=== PATIENT | male | born 1960 | race Caucasian/White ===

== ENCOUNTER 2016-08-18 07:11 | Day surgery (SDC) | payer BC ==
[2016-08-16 11:13] VITALS: BMI 33.0
[~2016-08-18 07:11] MED LIST: LACTATED RINGERS 1,000 ML IV SCH
[2016-08-18 08:16] VITALS: RESP 18; TEMP 97.8
[2016-08-18] MEDS ORDERED: LIDOCAINE 1% 20 ML VIAL (10MG/ML) FOR IV START INTRADERMA ONE (08:30)
[2016-08-18] MEDS ORDERED: MIDAZOLAM 2 MG/2 ML VIAL ONE (08:36)
[2016-08-18] MEDS ORDERED: fentaNYL (PF) 50 MCG/ML 2 ML AMP ONE (08:36)
[2016-08-18] MEDS ORDERED: DEXAMETHASONE SOD PHOSPHATE 10 MG/ML 1 ML VIAL ONE (08:36)
[2016-08-18] MEDS ORDERED: IOHEXOL 180 MG/ML 1 ML ML ONE (08:36)
--- NOTE | 2016-08-18 08:46 | P.PCN ---
Date of Procedure: 08/18/16 Procedure(s) Performed: . PROCEDURE 1. Cervical epidural steroid injection under fluoroscopic guidance, C7-T1 2. Cervical epidurogram. PREOPERATIVE DIAGNOSIS: 1- Cervical Degenerative Disc Diseases 2- Cervical radiculopathy. POSTOPERATIVE DIAGNOSIS: : 1- Cervical Degenerative Disc Diseases , 2- Cervical radiculopathy. ANESTHESIA: Local anesthesia with 1% lidocaine 2 ml and IV sedation with Versed 2 mg and Fentanyl 100 mcg. EBL 0 PROCEDURE INDICATION: The patient with neck pain and radiculitis unresponsive to conservative treatment consents for procedure. PROCEDURE DESCRIPTION / TECHNIQUE: The patient was seen and identified in the preoperative area. Risks, benefits, complications, including but not limited to infections ,bleeding , allergic reactions to the medications ,and not complete pain releife, and alternatives were discussed with the patient, the patient agreed to proceed with the procedure and signed the consent. Patient was taken to the OR and time out was completed. The patient was placed in the prone position on the procedure table. A pillow was placed under the patients chest to increase the cervical interlaminar space. The cervical area was prepped and draped in the usual sterile fashion. Vital signs were closely monitored during the procedure. Conscious sedation was used during the procedure to decrease patients anxiety. Using anterior-posterior fluoroscopy, the C7-T1 interlaminar space was identified and the skin over this site was marked and then infiltrated with 1% lidocaine subcutaneously. Subsequently, a 20-gauge 3-1/2-inch Tuohy epidural needle was inserted and advanced toward the epidural space by means of the `` hanging-drop technique and guided by AP and lateral fluoroscopy. The correct needle position in the epidural space was verified with the injection of 2 mL of the water soluble contrast dye Isovue-180 and observing an excellent epidurogram with the epidural spread of the dye, after negative aspiration for blood and CSF and in the absence of paresthesias. Again after negative aspiration, mixture containing 20 mg Dexamethasone and 2 ml of preservative- free normal saline injected and a washout of epidurogram was seen. Needle was withdrawn intact, skin was cleansed, and bandages were applied. Complications= none. Disposition= patient was placed in supine position and transferred to the recovery room area in stable condition and there was no evidence of upper or lower extremity motor or sensory deficit after the procedure patient was discharged from recovery room after discharge criteria met and home discharge instructions was given by the staff and patient will follow with the pain clinic in 2-4 weeks
[2016-08-18] MEDS ORDERED: IV FLUID CONTINUATION 900 ML IV ONE (08:51)
--- NOTE | 2016-08-18 08:56 | FL ---
EXAMINATION TYPE: FL guided pain mgmt statistic DATE OF EXAM: 08/18/2016 8:52 AM HISTORY: Flouroscopy time 3 seconds of fluoroscopy provided. IMPRESSION: 1. Fluoroscopy time.
[2016-08-18 09:24] VITALS: BP 123/86; PULSE 69
== END 2016-08-18 09:32 | disposition home or self-care (01) ==
LOC: ORPAIN 07:11
PROVIDERS: ATTEND Specialist
DX: M50.10 Cervical disc disorder with radiculopathy, unspecified cervical region (principal)
CPT/HCPCS: 62321; J2250; J1100; Q9965; J3010

== ENCOUNTER 2016-09-16 12:50 | Day surgery (SDC) | payer BC ==
[2016-09-14 11:39] VITALS: BMI 32.3
[2016-09-16] MEDS ORDERED: LIDOCAINE 1% 20 ML VIAL (10MG/ML) FOR IV START INTRADERMA ONE (13:22)
[2016-09-16 13:26] VITALS: RESP 16; TEMP 97.5
[2016-09-16] MEDS ORDERED: IOHEXOL 180 MG/ML 1 ML ML ONE (13:30)
[2016-09-16] MEDS ORDERED: MIDAZOLAM 2 MG/2 ML VIAL ONE (13:30)
[2016-09-16] MEDS ORDERED: fentaNYL (PF) 50 MCG/ML 2 ML AMP ONE (13:30)
[2016-09-16] MEDS ORDERED: DEXAMETHASONE SOD PHOSPHATE 10 MG/ML 1 ML VIAL ONE (13:30)
--- NOTE | 2016-09-16 13:51 | P.PCN ---
Date of Procedure: 09/16/16 Surgeon: Shawn Alanis Pathology: none sent Condition: stable Disposition: PACU Description of Procedure: PREOPERATIVE DIAGNOSIS: Cervical radiculopathy. POSTOPERATIVE DIAGNOSIS: Cervical radiculopathy. PROCEDURE 1. Cervical epidural steroid injection under fluoroscopic guidance, C7-T1 level. 2. Cervical epidurogram. ANESTHESIA: Local anesthesia with 1% lidocaine and IV sedation with versed/ fentanyl. EBL: Minimal PROCEDURE INDICATION: The patient with neck pain and radiculitis unresponsive to conservative treatment consents for procedure; pt has gotten good relief from cervical epidural steroid injections in the past. No use of blood thinners. PROCEDURE DESCRIPTION / TECHNIQUE: The patient was seen and identified in the preoperative area. Risks, benefits, complications, and alternatives were discussed with the patient (including but not limited to incomplete pain relief, bleeding, infection, nerve damage, and allergies to medications), the patient agreed to proceed with the procedure and signed the consent after all questions were answered. Patient was taken to the OR and time out was completed to verify proper patient , position, laterality of pain, and allergies. Pt was placed in the prone position. A pillow was placed under the patients chest to increase the cervical interlaminar space. The cervical area was prepped and draped in the usual sterile fashion. Critical pause was taken. Vital signs were closely monitored during the procedure. Conscious sedation was used during the procedure to decrease patients anxiety. Using anterior-posterior fluoroscopy, the C7-T1 interlaminar space was identified and the skin over this site was marked and then infiltrated with 1% lidocaine subcutaneously in a paramedian fashion. Subsequently, a 20-gauge 3-1/2 -inch Tuohy epidural needle was inserted and advanced toward the epidural space by means of the loss of resistance technique and guided by AP and lateral fluoroscopy. After negative aspiration for blood or CSF and in the absence of paresthesias, the correct needle position in the epidural space was verified with the injection of 1 mL of the water soluble contrast dye Omnipaque-180 and observing an excellent epidurogram with the epidural spread of the dye, after negative aspiration for blood and CSF and in the absence of paresthesias. Again after negative aspiration, a 5 ml mixture containing 20 mg of Decadron and 3 ml of preservative free Normal Saline solution was injected and a washout of epidurogram was seen. Needle was withdrawn intact, skin was cleansed, and bandages were applied. COMPLICATIONS: None COMMENTS: DISPOSITION / PLANS: The patient was placed in a supine position and transferred to the recovery area in a stable condition for observation. There was no evidence of upper extremity motor or sensory deficit after the procedure. Patient was discharged from the recovery room after meeting discharge criteria. Home discharge instructions were given to the patient by the staff. The patient was reexamined prior to discharge. The patient will schedule next [facility] procedure in 4-6 weeks.
[2016-09-16] MEDS ORDERED: IV FLUID CONTINUATION 1,000 ML IV ONE (13:55)
[2016-09-16 14:10] VITALS: BP 122/75; PULSE 78
--- NOTE | 2016-09-16 14:22 | FL ---
FLUOROSCOPY 6 of fluoroscopy time were utilized during cervical epidural. 3 images document the procedure.
== END 2016-09-16 14:27 | disposition home or self-care (01) ==
LOC: ORPAIN 12:50
PROVIDERS: ATTEND Anesthesiology
DX: M50.10 Cervical disc disorder with radiculopathy, unspecified cervical region (principal)
CPT/HCPCS: 62321; 99152; J2250; J1100; Q9965; J3010

== ENCOUNTER 2016-10-19 06:10 | Day surgery (SDC) | payer BC ==
[2016-10-18 12:20] VITALS: BMI 31.8
[2016-10-19 06:43] VITALS: RESP 18; TEMP 97.7
[2016-10-19] MEDS ORDERED: LIDOCAINE 1% 20 ML VIAL (10MG/ML) FOR IV START INTRADERMA ONE (06:50)
[2016-10-19] MEDS ORDERED: LACTATED RINGERS 1,000 ML IV ONE (06:50)
[2016-10-19] MEDS ORDERED: MIDAZOLAM 2 MG/2 ML VIAL ONE (07:00)
[2016-10-19] MEDS ORDERED: IOHEXOL 180 MG/ML 1 ML ML ONE (07:00)
[2016-10-19] MEDS ORDERED: DEXAMETHASONE SOD PHOSPHATE 10 MG/ML 1 ML VIAL ONE (07:00)
[2016-10-19] MEDS ORDERED: fentaNYL (PF) 50 MCG/ML 2 ML AMP ONE (07:00)
[2016-10-19] MEDS ORDERED: LACTATED RINGERS 1,000 ML IV SCH (07:45)
--- NOTE | 2016-10-19 07:45 | P.PCN ---
Date of Procedure: 10/19/16 Surgeon: Shawn Alanis Pathology: none sent Condition: stable Disposition: PACU Description of Procedure: PREOPERATIVE DIAGNOSIS: Cervical radiculopathy. POSTOPERATIVE DIAGNOSIS: Cervical radiculopathy. PROCEDURE 1. Cervical epidural steroid injection under fluoroscopic guidance, C7-T1 level. 2. Cervical epidurogram. ANESTHESIA: Local anesthesia with 1% lidocaine and IV sedation with versed/ fentanyl. EBL: Minimal PROCEDURE INDICATION: The patient with neck pain and radiculitis unresponsive to conservative treatment consents for procedure; pt has gotten good relief from cervical epidural steroid injections in the past. No use of blood thinners. PROCEDURE DESCRIPTION / TECHNIQUE: The patient was seen and identified in the preoperative area. Risks, benefits, complications, and alternatives were discussed with the patient (including but not limited to incomplete pain relief, bleeding, infection, nerve damage, and allergies to medications), the patient agreed to proceed with the procedure and signed the consent after all questions were answered. Patient was taken to the OR and time out was completed to verify proper patient , position, laterality of pain, and allergies. Pt was placed in the prone position. A pillow was placed under the patients chest to increase the cervical interlaminar space. The cervical area was prepped and draped in the usual sterile fashion. Critical pause was taken. Vital signs were closely monitored during the procedure. Conscious sedation was used during the procedure to decrease patients anxiety. Using anterior-posterior fluoroscopy, the C7-T1 interlaminar space was identified and the skin over this site was marked and then infiltrated with 1% lidocaine subcutaneously in a paramedian fashion. Subsequently, a 20-gauge 3-1/2 -inch Tuohy epidural needle was inserted and advanced toward the epidural space by means of the loss of resistance technique and guided by AP and lateral fluoroscopy. After negative aspiration for blood or CSF and in the absence of paresthesias, the correct needle position in the epidural space was verified with the injection of 1 mL of the water soluble contrast dye Omnipaque-180 and observing an excellent epidurogram with the epidural spread of the dye, after negative aspiration for blood and CSF and in the absence of paresthesias. Again after negative aspiration, a 5 ml mixture containing 20 mg of Decadron and 3 ml of preservative free Normal Saline solution was injected and a washout of epidurogram was seen. Needle was withdrawn intact, skin was cleansed, and bandages were applied. COMPLICATIONS: None COMMENTS: DISPOSITION / PLANS: The patient was placed in a supine position and transferred to the recovery area in a stable condition for observation. There was no evidence of upper extremity motor or sensory deficit after the procedure. Patient was discharged from the recovery room after meeting discharge criteria. Home discharge instructions were given to the patient by the staff. The patient was reexamined prior to discharge and there were no issues. The patient will schedule clinic followup in 4-6 weeks.
[2016-10-19 08:04] VITALS: BP 113/73; PULSE 70
[2016-10-19] MEDS ORDERED: IV FLUID CONTINUATION 1,000 ML IV ONE (08:11)
--- NOTE | 2016-10-19 08:33 | FL ---
Fluoroscopy HISTORY: Pain 11 seconds fluoroscopy time supplied to the referring clinician. 3 intraoperative C-arm images docum ent the procedure. See dictated report from anesthesia.
== END 2016-10-19 08:21 | disposition home or self-care (01) ==
LOC: ORPAIN 06:10
PROVIDERS: ATTEND Anesthesiology
DX: G89.29 Other chronic pain (principal); M54.12 Radiculopathy, cervical region; E78.5 Hyperlipidemia, unspecified; I10 Essential (primary) hypertension; E66.9 Obesity, unspecified; Z79.891 Long term (current) use of opiate analgesic; Z79.899 Other long term (current) drug therapy
CPT/HCPCS: 62321; 99152; J2250; J1100; Q9965; J3010

== ENCOUNTER → 2016-12-07 | Outpatient (CLI) | payer BC ==
[2016-12-07 12:36] VITALS: BP 139/73; PULSE 71; RESP 18; TEMP 98.4
--- NOTE | 2016-12-07 13:20 | P.PN ---
Subjective This is follow visit for this 56 years old male , with a chronic history of severe neck pain diagnosed with cervical radiculopathy and cervical degenerative disc disease, with done cervical epidural steroid injections x 3 , he reports , his pain improved significantly after the injection, denies any motor or sensory deficit, and he is very satisfied with the result of the treatment Objective - Vital Signs Vital signs: Vital Signs Temp 98.4 F 12/07/16 12:33 Pulse 71 12/07/16 12:33 Resp 18 12/07/16 12:33 BP 139/73 12/07/16 12:33 Pulse Ox 96 12/07/16 12:33 Intake & Output 12/06/16 12/07/16 12/07/16 18:59 06:59 18:59 Weight 90.718 kg - Exam Physical Examinations : 1-Constitutiona : Cooperative , not in acute distress . 2-HEENT : nech ; supple , no Lymphadenopathy , normal thyroid size . eyes : no ptosis , no icterus, no photophobia . ENT : normal of hearing , normal oropharynx , no Thrush . 3- Respiratory : Chest clear to auscultations Bilaterally , no wheezing , no Rhonchi . 4- Cardiovascular : regular rate and rhythem , S1 , S2 , no S3 , no S4. 5- Gastrointestinal : abdomen soft no tenderness , bowel sounds positive all four quadrents , no organomegally . 6- Genitourinary : Defferred . 7- neurologic : Cranial nerve II to XII intact , no focal neurological deffecit . 8-psychatric : alert , oriented X 3 , appropriate affect , intact judgment and insight . 9-Lymphatic : no Lymphadenopathy . 10- musculoskeltal : cervical spine = motor stregnth in the deltoid and biceps, Assessment and Plan Plan: Assessment and plan= Cervical radiculopathy ,and cervical degenerative disc disease,the pain improved after cervical epidural steroid injections, he will follow up when necessary Time with Patient: Less than 30
== END ==
LOC: PNWHC3 12:19
PROVIDERS: ATTEND Specialist
DX: M50.10 Cervical disc disorder with radiculopathy, unspecified cervical region (principal); Z79.891 Long term (current) use of opiate analgesic
CPT/HCPCS: 99211

== ENCOUNTER → 2017-01-12 | Outpatient (CLI) | payer BC ==
--- NOTE | 2017-01-12 09:18 | MR ---
EXAMINATION TYPE: MR lumbar spine wo con DATE OF EXAM: 01/12/2017 COMPARISON: CT abdomen pelvis March 10, 2014 HISTORY: Lumbago with right-sided sciatica per order. Back pain into right thigh since September 2015 per patient. TECHNIQUE: Multiplanar, multisequence imaging of the lumbar spine is performed without IV contrast. FINDINGS: Sagittal images of the lumbar spine show vertebral body heights to appear satisfactory. Spi ne is straightened on sagittal images. Multilevel disc desiccation is present. There is moderate to a dvanced disc space narrowing L3-L4 through the L5-S1 levels with posterior disc herniations present o n sagittal images at these levels. Increased signal posteriorly consistent with annular tear L3-L4 an d L5-S1 levels is noted. The conus medullaris is normal in position and signal ending at T12/L1 disc space level. The bone marrow signal intensity shows some heterogeneity with increased T1 and T2 sign al consistent with Modic type II degenerative degenerative change and moderate spurring at L5-S1 leve l present. Additional mild multilevel anterior spurring is seen. Axial images beginning at the L1-L2 level which shows broad-based posterior disc protrusion mildly ef facing anterior thecal sac with mild facet degenerative changes and ligamentum flavum hypertrophy. Bi lateral neural foramina remain patent. Axial images at L2-L3 level show mild facet degenerative changes bilaterally otherwise are unremarkab le. Axial images at L3-L4 level show broad disc bulge with left paracentral disc protrusion component on axial image 18 effacing anterior thecal sac. There is mild facet degenerative changes bilaterally. Th ere is mild bilateral anterior inferior neural foraminal narrowing noted. Axial images at L4-L5 level show mild to moderate facet degenerative changes bilaterally. There is br oad-based right paracentral disc protrusion effacing anterior thecal sac. There is mild right greater than left anterior inferior neural foraminal narrowing noted at this level. Axial images at L5-S1 level show mild/moderate facet degenerative changes bilaterally. There is centr al disc protrusion seen but spinal canal is preserved. There is mild to moderate bilateral anterior i nferior neural foraminal narrowing at this level identified. No suspicious retroperitoneal findings are seen. Paraspinal muscle bulk is maintained. IMPRESSION: Straightening of lumbar spine with multilevel degenerative changes seen most prominent at mid to lower lumbar levels. Further details are noted as discussed above.
== END | disposition home or self-care (01) ==
LOC: RADMRIMAIN 08:06
PROVIDERS: ATTEND Family Medicine
DX: M47.817 Spondylosis without myelopathy or radiculopathy, lumbosacral region (principal); M53.86 Other specified dorsopathies, lumbar region
CPT/HCPCS: 72148

== ENCOUNTER → 2017-02-17 | Outpatient (CLI) | payer BC ==
--- NOTE | 2017-02-18 13:55 | PN ---
PROGRESS NOTE 56-year-old gentleman had been [facility] of obstructive sleep apnea/hypopnea syndrome. The patient successfully continued to use his CPAP equipment. I checked CPAP unit. Usage is 29 out of 30 nights more than 4 hours. Sometimes patient experiencing dryness in his mouth while using his CPAP machine. He increased his weight from 202 pounds during the last visit up to 210 pounds at the present time. No snoring with the machine. MEDICATIONS: Metoprolol, simvastatin, fenofibrate, [place]. [place] Sleepiness Scale today is 9. PHYSICAL EXAM: Patient in no distress. BP 126/84, HR 72, RR 16, height 5 feet 6 inches, weight 210, BMI 33.8, temp is 98.3. Oxygen saturation on room air 98%. Oropharynx moderately low position of soft palate. Abdomen obese. . Neck Supple, no JVD. Thyroid is not palpable. LUNGS Clear to percussion and to auscultation. Good air exchange. No wheezing or rhonchi. HEART S1, S2 regular. No murmurs, gallops, or rubs. EXTREMITIES No clubbing or cyanosis. WANT AD RECEIVER Awake, alert, and oriented X3. Cranial nerves 2 to 7 intact. There is no fasciculation or atrophy. noted. No focal deficits observed. IMPRESSION: 1. Obstructive sleep apnea-hypopnea syndrome controlled with CPAP at 10 cm of water. Patient demonstrated practically 100% compliance with treatment, benefitting with treatment. 2. Obesity, body mass index 33.8. Patient increased his weight 8 pounds since previous visit. 3. Hyperlipidemia. 4. Status post right hip replacement. 5. Hypertension. 6. Status post UPPP and tonsillectomy. PLAN: 1. Continue treatment with CPAP every night for the whole night. 2. A prescription for all necessary CPAP supplies. 3. The patient will increase temperature in his humidifier to prevent dryness. 4. No driving if feeling sleepiness. 5. Followup visit in 6 months. At that time we will consider possibility to replace patient's CPAP unit. 6. 7. Thank you very much for allowing me to participate in the management of your patient. Sincerely, Jourdan Baker MD, PhD, FAASM Diplomat of [employer] Test Specialist of [facility] Sharon MMODL / IJN: [id number] /
== END | disposition home or self-care (01) ==
LOC: SLEEP 16:21
PROVIDERS: ATTEND Internal Medicine
DX: G47.33 Obstructive sleep apnea (adult) (pediatric) (principal); E66.9 Obesity, unspecified; Z68.33 Body mass index [BMI] 33.0-33.9, adult; E78.5 Hyperlipidemia, unspecified; I10 Essential (primary) hypertension; Z96.641 Presence of right artificial hip joint; Z90.89 Acquired absence of other organs; Z79.899 Other long term (current) drug therapy

== ENCOUNTER 2017-05-31 09:20 | Day surgery (SDC) | payer BC ==
[2017-05-26 15:49] VITALS: BMI 32.3
[2017-05-31] MEDS ORDERED: LACTATED RINGERS 1,000 ML IV ONE ×2 (09:44→10:45)
[2017-05-31] MEDS ORDERED: LIDOCAINE 1% 20 ML VIAL (10MG/ML) FOR IV START INTRADERMA ONE (09:44)
[2017-05-31 09:46] VITALS: RESP 16; TEMP 97.1
[2017-05-31] MEDS ORDERED: IV FLUID CONTINUATION 1,000 ML IV ONE (10:08)
[2017-05-31 10:31] VITALS: BP 133/80; PULSE 76
--- NOTE | 2017-05-31 10:38 | FL ---
Fluoroscopy HISTORY: Pain 6 seconds fluoroscopy time supplied to the referring clinician. 2 intraoperative C-arm images docume nt the procedure. See dictated report from anesthesia.
--- NOTE | 2017-05-31 10:53 | P.PCN ---
Date of Procedure: 05/31/17 Surgeon: Shawn Alanis Pathology: none sent Condition: stable Disposition: PACU Description of Procedure: PREOPERATIVE DIAGNOSIS: Cervical radiculopathy. POSTOPERATIVE DIAGNOSIS: Cervical radiculopathy. PROCEDURE 1. Cervical epidural steroid injection under fluoroscopic guidance, C7-T1 level. 2. Cervical epidurogram. ANESTHESIA: Local anesthesia with 1% lidocaine and IV sedation with versed/ fentanyl. EBL: Minimal PROCEDURE INDICATION: The patient with neck pain and radiculitis unresponsive to conservative treatment consents for procedure; pt has gotten good relief from cervical epidural steroid injections in the past. No use of blood thinners. PROCEDURE DESCRIPTION / TECHNIQUE: The patient was seen and identified in the preoperative area. Risks, benefits, complications, and alternatives were discussed with the patient (including but not limited to incomplete pain relief, bleeding, infection, nerve damage, and allergies to medications), the patient agreed to proceed with the procedure and signed the consent after all questions were answered. Patient was taken to the OR and time out was completed to verify proper patient , position, laterality of pain, and allergies. Pt was placed in the prone position. A pillow was placed under the patients chest to increase the cervical interlaminar space. The cervical area was prepped and draped in the usual sterile fashion. Critical pause was taken. Vital signs were closely monitored during the procedure. Conscious sedation was used during the procedure to decrease patients anxiety. Using anterior-posterior fluoroscopy, the C7-T1 interlaminar space was identified and the skin over this site was marked and then infiltrated with 1% lidocaine subcutaneously in a paramedian fashion. Subsequently, a 20-gauge 3-1/2 -inch Tuohy epidural needle was inserted and advanced toward the epidural space by means of the loss of resistance technique and guided by AP and lateral fluoroscopy. After negative aspiration for blood or CSF and in the absence of paresthesias, the correct needle position in the epidural space was verified with the injection of 1 mL of the water soluble contrast dye Omnipaque-180 and observing an excellent epidurogram with the epidural spread of the dye, after negative aspiration for blood and CSF and in the absence of paresthesias. Again after negative aspiration, a 5 ml mixture containing 20 mg of Decadron and 3 ml of preservative free Normal Saline solution was injected and a washout of epidurogram was seen. Needle was withdrawn intact, skin was cleansed, and bandages were applied. COMPLICATIONS: None COMMENTS: DISPOSITION / PLANS: The patient was placed in a supine position and transferred to the recovery area in a stable condition for observation. There was no evidence of upper extremity motor or sensory deficit after the procedure. Patient was discharged from the recovery room after meeting discharge criteria. Home discharge instructions were given to the patient by the staff. The patient was reexamined prior to discharge and there were no issues. The patient will schedule clinic follow-up in 6-8 weeks as he is scheduled to have hip surgery.
== END 2017-05-31 10:42 | disposition home or self-care (01) ==
LOC: ORPAIN 09:20
PROVIDERS: ATTEND Anesthesiology
DX: G89.29 Other chronic pain (principal); M54.12 Radiculopathy, cervical region; I10 Essential (primary) hypertension; E78.5 Hyperlipidemia, unspecified
CPT/HCPCS: 62321; J2250; J1100; Q9965; J3010; 99152

== ENCOUNTER → 2017-07-26 | Outpatient (CLI) | payer BC ==
[2017-07-26 12:09] VITALS: BP 131/78; PULSE 79; RESP 16
--- NOTE | 2017-07-26 12:25 | P.PN ---
Progress Note - Text Progress Note Date: 07/26/17 This is a 57-year-old male with history of cervical fusion and chronic neck pain. The patient usually gets good results from cervical epidural steroid injections. He usually gets a series of 3 of these injections that would last him for 6 months as he states. His pain goes down to both shoulders and he denies any numbness or tingling in the arms. By physical exam he is alert oriented 3 in no apparent distress. He has decreased range of motion towards the right rotation however the rest of the range of motion of the cervical spine is normal. He has tenderness in the cervical paravertebral area bilaterally and also in the trapezius muscles bilaterally.. Neuro exam of the upper extremities showed normal and symmetrical biceps reflex absent triceps reflex bilaterally and symmetrically and normal and symmetrical brachial radialis reflex. Muscle strength is normal and symmetrical in both arms. I will schedule the patient to have cervical epidural steroid injection under fluoroscopic guidance and if this injection does not help control his pain well as it used to then we'll plan on doing cervical spine MRI with/without contrast. The patient is borderline diabetic and he denies taking any anticoagulants.
== END | disposition home or self-care (01) ==
LOC: PNWHC3 11:34
PROVIDERS: ATTEND Anesthesiology
DX: G89.29 Other chronic pain (principal); M54.2 Cervicalgia; M43.22 Fusion of spine, cervical region; E11.9 Type 2 diabetes mellitus without complications
CPT/HCPCS: 99211

== ENCOUNTER 2017-08-04 06:10 | Day surgery (SDC) | payer BC ==
[2017-08-04] MEDS ORDERED: LACTATED RINGERS 1,000 ML IV SCH (06:24)
[2017-08-04 06:32] VITALS: RESP 16; TEMP 97.7
[2017-08-04 06:40] LABS: Glucose,Whole Blood 106 mg/dL (75-99)
[2017-08-04] MEDS ORDERED: IV FLUID CONTINUATION 1,000 ML IV ONE (07:17)
--- NOTE | 2017-08-04 07:18 | P.PCN ---
Date of Procedure: 08/04/17 Procedure(s) Performed: . PROCEDURE 1. Cervical epidural steroid injection under fluoroscopic guidance, C7-T1 2. Cervical epidurogram. PREOPERATIVE DIAGNOSIS: 1- failed back surgery syndrome ,cervical area POSTOPERATIVE DIAGNOSIS: : 1- same as preoperative diagnoses ANESTHESIA: Local anesthesia with 1% lidocaine and IV sedation with Versed 2 mg and Fentanyl 100 mcg. EBL 0 PROCEDURE INDICATION: The patient with neck pain and radiculitis unresponsive to conservative treatment consents for procedure. PROCEDURE DESCRIPTION / TECHNIQUE: The patient was seen and identified in the preoperative area. Risks, benefits, complications, including but not limited to infections ,bleeding , allergic reactions to the medications ,and not complete pain releife, and alternatives were discussed with the patient, the patient agreed to proceed with the procedure and signed the consent. Patient was taken to the OR and time out was completed. The patient was placed in the prone position on the procedure table. A pillow was placed under the patients chest to increase the cervical interlaminar space. The cervical area was prepped and draped in the usual sterile fashion. Vital signs were closely monitored during the procedure. Conscious sedation was used during the procedure to decrease patients anxiety. Using anterior-posterior fluoroscopy, the C7-T1 interlaminar space was identified and the skin over this site was marked and then infiltrated with 1% lidocaine subcutaneously. Subsequently, a 20-gauge 3-1/2-inch Tuohy epidural needle was inserted and advanced toward the epidural space by means of the `` hanging-drop technique and guided by AP and lateral fluoroscopy. The correct needle position in the epidural space was verified with the injection of 2 mL of the water soluble contrast dye Isovue-180 and observing an excellent epidurogram with the epidural spread of the dye, after negative aspiration for blood and CSF and in the absence of paresthesias. Again after negative aspiration, mixture containing 20 mg Dexamethasone and 2 ml of preservative- free normal saline injected and a washout of epidurogram was seen. Needle was withdrawn intact, skin was cleansed, and bandages were applied. Complications= none. Disposition= patient was placed in supine position and transferred to the recovery room area in stable condition and there was no evidence of upper or lower extremity motor or sensory deficit after the procedure patient was discharged from recovery room after discharge criteria met and home discharge instructions was given by the staff and patient will follow with the pain clinic in 2-4 weeks
[2017-08-04 07:52] VITALS: BP 128/86; PULSE 76
[2017-08-04 07:53] LABS: Glucose,Whole Blood 105 mg/dL (75-99)
--- NOTE | 2017-08-04 08:59 | FL ---
EXAMINATION TYPE: FL guided pain mgmt statistic DATE OF EXAM: 08/04/2017 HISTORY: Flouroscopy time 2 seconds of fluoroscopy provided. IMPRESSION: 1. Fluoroscopy time.
== END 2017-08-04 08:00 | disposition home or self-care (01) ==
LOC: ORPAIN 06:10
PROVIDERS: ATTEND Specialist
DX: G89.29 Other chronic pain (principal); M54.12 Radiculopathy, cervical region; M96.1 Postlaminectomy syndrome, not elsewhere classified; E11.9 Type 2 diabetes mellitus without complications; Z98.1 Arthrodesis status
CPT/HCPCS: 62321; J2250; J1100; Q9965; J3010

== ENCOUNTER 2017-08-23 06:26 | Day surgery (SDC) | payer BC ==
[2017-08-19 10:55] VITALS: BMI 32.3
[2017-08-23] MEDS ORDERED: LIDOCAINE 1% 20 ML VIAL (10MG/ML) FOR IV START INTRADERMA ONE (06:38)
[2017-08-23 06:56] VITALS: TEMP 97.5
[2017-08-23] MEDS ORDERED: LACTATED RINGERS 1,000 ML IV ONE (06:57)
[2017-08-23 06:58] LABS: Glucose,Whole Blood 116 mg/dL (75-99)
[2017-08-23] MEDS ORDERED: LACTATED RINGERS 1,000 ML IV SCH (07:15)
--- NOTE | 2017-08-23 08:01 | P.PCN ---
Date of Procedure: 08/23/17 Surgeon: Shawn Alanis Pathology: none sent Condition: stable Disposition: PACU Description of Procedure: PREOPERATIVE DIAGNOSIS: Cervical radiculopathy. POSTOPERATIVE DIAGNOSIS: Cervical radiculopathy. PROCEDURE 1. Cervical epidural steroid injection under fluoroscopic guidance, C7-T1 level. 2. Cervical epidurogram. ANESTHESIA: Local anesthesia with 1% lidocaine and IV sedation with versed/ fentanyl. EBL: Minimal PROCEDURE INDICATION: The patient with neck pain and radiculitis unresponsive to conservative treatment consents for procedure; pt has gotten good relief from cervical epidural steroid injections in the past. No use of blood thinners. PROCEDURE DESCRIPTION / TECHNIQUE: The patient was seen and identified in the preoperative area. Risks, benefits, complications, and alternatives were discussed with the patient (including but not limited to incomplete pain relief, bleeding, infection, nerve damage, and allergies to medications), the patient agreed to proceed with the procedure and signed the consent after all questions were answered. Patient was taken to the OR and time out was completed to verify proper patient , position, laterality of pain, and allergies. Pt was placed in the prone position. A pillow was placed under the patients chest to increase the cervical interlaminar space. The cervical area was prepped and draped in the usual sterile fashion. Critical pause was taken. Vital signs were closely monitored during the procedure. Conscious sedation was used during the procedure to decrease patients anxiety. Using anterior-posterior fluoroscopy, the C7-T1 interlaminar space was identified and the skin over this site was marked and then infiltrated with 1% lidocaine subcutaneously in a paramedian fashion. Subsequently, a 20-gauge 3-1/2 -inch Tuohy epidural needle was inserted and advanced toward the epidural space by means of the loss of resistance technique and guided by AP and lateral fluoroscopy. After negative aspiration for blood or CSF and in the absence of paresthesias, the correct needle position in the epidural space was verified with the injection of 1 mL of the water soluble contrast dye Omnipaque-180 and observing an excellent epidurogram with the epidural spread of the dye, after negative aspiration for blood and CSF and in the absence of paresthesias. Again after negative aspiration, a 4 ml mixture containing 20 mg of Decadron and 2 ml of preservative free Normal Saline solution was injected and a washout of epidurogram was seen. Needle was withdrawn intact, skin was cleansed, and bandages were applied. COMPLICATIONS: None COMMENTS: DISPOSITION / PLANS: The patient was placed in a supine position and transferred to the recovery area in a stable condition for observation. There was no evidence of upper extremity motor or sensory deficit after the procedure. Patient was discharged from the recovery room after meeting discharge criteria. Home discharge instructions were given to the patient by the staff. The patient was reexamined prior to discharge and there were no issues. The patient will schedule clinic follow-up in 4-6 weeks.
[2017-08-23] MEDS ORDERED: IV FLUID CONTINUATION 650 ML IV ONE (08:09)
[2017-08-23 08:12] VITALS: RESP 18
[2017-08-23 08:29] VITALS: BP 127/88; PULSE 72
--- NOTE | 2017-08-23 12:12 | FL ---
EXAMINATION TYPE: FL guided pain mgmt statistic DATE OF EXAM: 08/23/2017 HISTORY: Flouroscopy time 12 seconds of fluoroscopy provided. IMPRESSION: 1. Fluoroscopy time.
== END 2017-08-23 08:51 | disposition home or self-care (01) ==
LOC: ORPAIN 06:26
PROVIDERS: ATTEND Anesthesiology
DX: G89.29 Other chronic pain (principal); M54.12 Radiculopathy, cervical region; R73.03 Prediabetes
CPT/HCPCS: 62321; J2250; J1100; Q9965; J3010; 99152

== ENCOUNTER → 2017-10-04 | Outpatient (CLI) | payer BC ==
[2017-10-04 09:48] LABS: Basophils % (A) 1 %; Eosinophils # (A) 0.2 k/uL (0-0.7); Eosinophils % (A) 3 %; HCT 43.8 % (39.0-53.0); HGB 14.2 gm/dL (13.0-17.5); Lymphocytes # (A) 1.7 k/uL (1.0-4.8); Lymphocytes % (A) 26 %; MCH 28.9 pg (25.0-35.0); MCHC 32.5 g/dL (31.0-37.0); Mean Platelet Volume 8.6; Monocytes # (A) 0.3 k/uL (0-1.0); Monocytes % (A) 5 %; Neutrophils # (A) 4.3 k/uL (1.3-7.7); Neutrophils % (A) 65 %; Platelet Count 250 k/uL (150-450); RBC 4.92 m/uL (4.30-5.90); RDW 13.3 % (11.5-15.5); WBC 6.6 k/uL (3.8-10.6)
[2017-10-04 10:06] LABS: ALT 35 U/L (21-72); AST 21 U/L (17-59); Albumin 4.1 g/dL (3.5-5.0); Alkaline Phosphatase 55 U/L (38-126); Anion Gap 14 mmol/L; Blood Urea Nitrogen 15 mg/dL (9-20); Calcium 9.5 mg/dL (8.4-10.2); Carbon Dioxide 27 mmol/L (22-30); Chloride 106 mmol/L (98-107); Cholesterol 162 mg/dL (<200); Glucose 121 mg/dL (74-99); HDL Cholesterol 34 mg/dL (40-60); LDL Cholesterol,Calculated 97 mg/dL (0-99); Potassium 4.5 mmol/L (3.5-5.1); Sodium 147 mmol/L (137-145); Total Bilirubin 0.3 mg/dL (0.2-1.3); Total Protein 6.6 g/dL (6.3-8.2); Triglycerides 154 mg/dL (<150)
[2017-10-04 20:35] LABS: Hemoglobin A1C 6.3 % (4.0-6.0)
== END | disposition home or self-care (01) ==
LOC: LABWHC1 09:29
PROVIDERS: ATTEND Family Medicine
DX: E11.65 Type 2 diabetes mellitus with hyperglycemia (principal)
CPT/HCPCS: 36415; 80053; 80061; 82043; 82570; 83036; 84443; 85025

== ENCOUNTER → 2018-01-19 | Outpatient (CLI) | payer BC ==
--- NOTE | 2018-01-19 10:52 | PN ---
PROGRESS NOTE DATE OF SERVICE: 01/19/2018 A 57-year-old gentleman who has been followed in [facility] Center for treatment of obstructive sleep apnea-hypopnea syndrome. Patient continued to use his CPAP unit every night. No snoring with the machine. [place] Sleepiness Scale today is 8. I checked CPAP unit. CPAP pressure is 10 cm of water. Usage is 27/30 nights more than 4 hours for the last months. Average usage is 6.3 hours. No snoring with the machine. MEDICATIONS: Simvastatin, fenofibrate, metoprolol, metformin. PHYSICAL EXAM: Patient in no distress. BP 126/76, HR 79, RR 16, height 66, weight 209.2, BMI 33.7. Weight is about the same as one year ago. Temperature 97.8, oxygen saturation at room air 96%. OROPHARYNX: Moderately low position of soft palate. ABDOMEN: Slightly obese. Neck Supple, no JVD. Thyroid is not palpable. LUNGS Clear to percussion and to auscultation. Good air exchange. No wheezing or rhonchi. HEART S1, S2 regular. No murmurs, gallops, or rubs. EXTREMITIES No clubbing or cyanosis. 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 Cranial nerves 2 to 7 intact. There is no fasciculation or atrophy. noted. No focal deficits observed. IMPRESSION: 1. Obstructive sleep apnea-hypopnea syndrome. Patient demonstrated great compliance with treatment, benefitting from treatment. 2. Mild obesity. body mass index 33.7. 3. Hyperlipidemia. 4. Status post right hip replacement. 5. Hypertension. 6. Status post UPPP and tonsillectomy. 7. Borderline level of blood sugar. PLAN: 1. Patient will continue to use CPAP equipment every. 2. We will replace CPAP unit, this unit more than 5 years old. 3. Losing weight. 4. Sleep hygiene with regular time in bed for at least 8 hours. 5. No driving if feeling any sleepiness. Thank you very much for allowing me to participate in the management of your patient. Sincerely, Jourdan Baker MD, PhD, FAASM Diplomat of [employer] Motion Picture Actor of [facility] [place] MMODL / IJN: [id number] /
== END | disposition home or self-care (01) ==
LOC: SLEEP 09:40
PROVIDERS: ATTEND Internal Medicine
DX: G47.33 Obstructive sleep apnea (adult) (pediatric) (principal); E78.5 Hyperlipidemia, unspecified; I10 Essential (primary) hypertension; E66.9 Obesity, unspecified; Z68.33 Body mass index [BMI] 33.0-33.9, adult; Z96.641 Presence of right artificial hip joint; Z90.89 Acquired absence of other organs; Z99.89 Dependence on other enabling machines and devices; Z79.899 Other long term (current) drug therapy; Z79.84 Long term (current) use of oral hypoglycemic drugs

== ENCOUNTER 2018-01-25 06:46 | Day surgery (SDC) | payer BC ==
[2018-01-20 13:06] VITALS: BMI 32.3
[~2018-01-25 06:46] MED LIST changes: +LIDOCAINE 1% 20 ML VIAL (10MG/ML) FOR IV START INTRADERMA PRN; +MIDAZOLAM 2 MG/2 ML VIAL IV PRN
[2018-01-25 07:32] VITALS: TEMP 97.3
[2018-01-25 07:36] LABS: Glucose,Whole Blood 113 mg/dL (75-99)
[2018-01-25] MEDS ORDERED: PROPOFOL 10 MG/ML 20 ML VIAL IV ONE (07:36)
[2018-01-25] MEDS ORDERED: LIDOCAINE 1% INJ 10MG/ML (20 ML MDV) ONE (07:36)
--- NOTE | 2018-01-25 08:08 | P.PCN ---
Date of Procedure: 01/25/18 Procedure(s) Performed: BRIEF HISTORY: Patient is a 57-year-old pleasant white male, scheduled for an elective colonoscopy as a part of variation of prior history of colon polyps. He also has acute recurrent sigmoid diverticulitis last episode was 2 months ago. Today with antibiotics and doing well. PROCEDURE PERFORMED: Colonoscopy with snare polypectomy. PREOPERATIVE DIAGNOSIS: History of colon polyps/acute recurrent sigmoid diverticular colitis. IV sedation per Anesthesia. PROCEDURE: After informed consent was obtained, the patient, was brought into the endoscopy unit. IV sedation was administered by Anesthesia under continuous monitoring. Digital rectal examination was normal. Initially the Olympus CF- 160 flexible video colonoscope was then inserted in the rectum, gradually advanced into the cecum without any difficulty. Careful examination was performed as the scope was gradually being withdrawn. Ileocecal valve and the appendiceal orifice were visualized and appeared normal. Prep was excellent. Mucosa of the cecum, ascending colon, appeared normal. In the transverse colon there was a 1 cm polyp that was removed by snare polypectomy. The descending colon there were 2 polyps measuring 5 mm and 7 mm both of which were sessile which were removed by snare polypectomy. The rest of the transverse colon, descending colon appeared normal. There was scattered diverticulosis noted in the sigmoid colon and there was relative narrowing of the lumen exiting from 30- 40 cm from the anal verge but no obvious diverticulitis seen. The rest of the sigmoid colon, and rectum appeared normal. Retroflexion was performed in the rectum and no lesions were seen. The patient tolerated the procedure well. IMPRESSION: Sigmoid diverticulosis with mild sigmoid narrowing but no evidence of acute diverticulitis 1 cm transverse colon polyp status post polypectomy 5 mm and 7 mm sessile descending colon polyp status post polypectomy RECOMMENDATIONS: Findings of this examination were discussed with the patient as well as his family. He was advised to follow with the biopsy results. If the biopsy shows a tubular adenoma, he can have a repeat colonoscopy in 3 years.
[2018-01-25 08:20] VITALS: BP 123/82; PULSE 67; RESP 16
== END 2018-01-25 09:02 | disposition home or self-care (01) ==
LOC: ORWHC2ENDO 06:46
PROVIDERS: ATTEND Internal Medicine Gastroenterology
DX: D12.3 Benign neoplasm of transverse colon (principal); D12.4 Benign neoplasm of descending colon; Z86.010 Personal history of colon polyps; K57.30 Diverticulosis of large intestine without perforation or abscess without bleeding; I10 Essential (primary) hypertension; E11.9 Type 2 diabetes mellitus without complications; Z79.84 Long term (current) use of oral hypoglycemic drugs; Z79.899 Other long term (current) drug therapy
CPT/HCPCS: 88305; 45385; J2001; J2704

== ENCOUNTER → 2018-04-20 | Outpatient (CLI) | payer BC ==
[2018-04-20 11:04] LABS: Albumin 4.5 g/dL (3.80-4.90); Albumin/Globulin Ratio 2.37 (1.20-2.10); Anion Gap 4.8 mmol/L (4.00-12.00); Calcium 9.6 mg/dL (8.7-10.3); Carbon Dioxide 30.2 mmol/L (21.6-31.8); Globulin 1.9 g/dL (2.1-3.7); Potassium 4.5 mmol/L (3.5-5.5); Total Bilirubin 0.4 mg/dL (0.2-1.2); Total Protein 6.4 g/dL (6.2-8.2)
[2018-04-20 12:56] LABS: Hemoglobin A1C 7.1 % (4.0-6.0)
== END | disposition home or self-care (01) ==
LOC: LABWHC1 07:41
PROVIDERS: ATTEND Family Medicine
DX: E11.9 Type 2 diabetes mellitus without complications (principal)
CPT/HCPCS: 36415; 80053; 80061; 83036

== ENCOUNTER → 2018-06-15 | Outpatient (CLI) | payer BC ==
--- NOTE | 2018-06-15 12:38 | SFUN ---
SLEEP CENTER FOLLOW UP NOTE DATE OF SERVICE: 06/15/2018 A 58-year-old gentleman who has been followed in the Sleep Center for treatment of obstructive sleep apnea-hypopnea syndrome. Recently patient received new CPAP unit. He is able to use CPAP equipment every night for the whole night without problems. [place] Sleepiness Scale today is 8. I checked his CPAP unit. CPAP pressure is 10 cm of water. Usage is 100% of the nights more than 4 hours. Average usage is 7.4 hours. Leak 32 L/minute. Apnea-hypopnea index is 0.5, which is absolutely perfect. MEDICATIONS: Simvastatin, metoprolol, fenofibrate, metformin. PHYSICAL EXAM: Patient in no distress. BP 125/82, HR 79, RR 16, weight 217.6, temperature 98.1, oxygen saturation from 95%. OROPHARYNX: Moderately low position of soft palate. ABDOMEN: Slightly obese. Neck Supple, no JVD. Thyroid is not palpable. LUNGS Clear to percussion and to auscultation. Good air exchange. No wheezing or rhonchi. HEART S1, S2 regular. No murmurs, gallops, or rubs. EXTREMITIES No clubbing or cyanosis. 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 Cranial nerves 2 to 7 intact. There is no fasciculation or atrophy. noted. No focal deficits observed. IMPRESSION: 1. Obstructive sleep apnea-hypopnea syndrome. Patient demonstrated 100% compliance with treatment. Breathing is totally normal on CPAP, benefitting from treatment. 2. Mild obesity. 3. Hyperlipidemia. 4. Status post right hip replacement. 5. Hypertension. 6. Status post UPPP and tonsillectomy. 7. History of borderline level of blood sugar. PLAN: 1. Patient will continue to use CPAP equipment every night for the whole night. 2. Watching and losing weight. 3. Sleep hygiene with regular time in bed for at least 8 hours. 4. No driving if feeling sleepiness. 5. Will maintain prescription for all necessary CPAP supplies. 6. Followup visit in 1 year. Thank you very much for allowing me to participate in the management of your patient. Sincerely, Jourdan Baker MD, PhD, FAASM Diplomat of [place] [employer] [place] [employer] Custodial Foreman of [facility] [place] MMODL / SHELBIN: [id number] /
== END ==
LOC: SLEEP 11:10
PROVIDERS: ATTEND Internal Medicine
DX: G47.33 Obstructive sleep apnea (adult) (pediatric) (principal); E66.9 Obesity, unspecified; E78.5 Hyperlipidemia, unspecified; I10 Essential (primary) hypertension; R73.09 Other abnormal glucose; Z98.890 Other specified postprocedural states; Z90.89 Acquired absence of other organs; Z99.89 Dependence on other enabling machines and devices; Z96.641 Presence of right artificial hip joint; Z79.899 Other long term (current) drug therapy; Z79.84 Long term (current) use of oral hypoglycemic drugs

== ENCOUNTER → 2018-10-09 | Outpatient (CLI) | payer BC ==
[2018-10-09 08:08] LABS: Basophils % (A) 1 %; Eosinophils # (A) 0.2 k/uL (0-0.7); Eosinophils % (A) 4 %; HCT 42.8 % (39.0-53.0); HGB 13.9 gm/dL (13.0-17.5); Lymphocytes # (A) 1.4 k/uL (1.0-4.8); Lymphocytes % (A) 23 %; MCH 30.7 pg (25.0-35.0); MCHC 32.6 g/dL (31.0-37.0); MCV 94.4 fL (80.0-100.0); Mean Platelet Volume 8.2; Monocytes # (A) 0.4 k/uL (0-1.0); Monocytes % (A) 6 %; Neutrophils % (A) 64 %; Platelet Count 245 k/uL (150-450); RBC 4.53 m/uL (4.30-5.90); RDW 13.4 % (11.5-15.5); WBC 6.3 k/uL (3.8-10.6)
[2018-10-09 08:22] LABS: Appearance,Urine Clear (Clear); Bilirubin,Urine Negative (Negative); Blood,Urine Negative (Negative); Color,Urine Yellow; Glucose,Urine (UA) Negative (Negative); Ketones,Urine Negative (Negative); Leukocyte Esterase,Urine Negative (Negative); Nitrite,Urine Negative (Negative); Protein,Urine Negative (Negative); Urobilinogen,Urine <2.0 mg/dL (<2.0)
[2018-10-09 11:19] LABS: Albumin 4.4 g/dL (3.80-4.90); Albumin/Globulin Ratio 2.93 (1.60-3.17); Anion Gap 8.8 mmol/L (4.00-12.00); Calcium 9.4 mg/dL (8.7-10.3); Carbon Dioxide 27.2 mmol/L (21.6-31.8); Globulin 1.5 g/dL (1.6-3.3); LDL Cholesterol,Calculated 73.6 mg/dL (0.0-131.0); Potassium 4.6 mmol/L (3.5-5.5); Total Bilirubin 0.4 mg/dL (0.2-1.2); Total Protein 5.9 g/dL (6.2-8.2); VLDL Calculation 21.4 mg/dL (5.00-40.00)
[2018-10-09 11:32] LABS: Hemoglobin A1C 6.2 % (4.0-6.0)
== END | disposition home or self-care (01) ==
LOC: LABWHC1 07:31
PROVIDERS: ATTEND Family Medicine
DX: Z00.01 Encounter for general adult medical examination with abnormal findings (principal); E11.65 Type 2 diabetes mellitus with hyperglycemia; Z13.9 Encounter for screening, unspecified
CPT/HCPCS: 36415; 80053; 80061; 81003; 82043; 82570; 83036; 84153; 84443; 85025; 86803

== ENCOUNTER → 2018-11-10 | Outpatient (CLI) | payer BC ==
--- NOTE | 2018-11-11 12:19 | CTL ---
EXAMINATION TYPE: CT Low Dose Lung DATE OF EXAM ORDERED: 11/10/2018 HISTORY: . Lung cancer screening CT DLP: [address] CTDI: 2.14 mGy Automated exposure control for dose reduction was used. SCREENING VISIT: Initial COMPARISON: None TECHNIQUE: Low dose computed tomography scan was performed through the chest at 1 mm thick sections a nd reconstructed images in the coronal plane at [address] DIAGNOSTIC QUALITY: Limited, but interpretable FINDINGS: LUNG NODULES: Present, detailed below: There is an irregular 0.8 x 1.3 cm density within the mid right lung. Series 5 image 129. There is a 1.0 cm peripheral based density in the posterior right midlung. Series 5 image 29. LUNGS: COPD: Severity: None Fibrosis: Severity: None Lymph nodes: None Other findings: None RIGHT PLEURAL SPACE: Effusion: None Calcification: None Thickening: None Pneumothorax: None LEFT PLEURAL SPACE: Effusion: None Calcification: None Thickening: None Pneumothorax: None HEART: Heart Size: Normal Coronary calcification: None Pericardial effusion: None OTHER FINDINGS: Upper abdomen: Normal as visualized Bony thorax: Unremarkable Supraclavicular region: Normal Other: The ascending thoracic aorta at the level the main pulmonary artery is 3.5 cm. The main pulmon tate bifurcation is 2.9 cm. IMPRESSION: 1. There is a 1.3 cm nodule within the periphery of the right lung. Posterior nodule may be present r ight midlung as well. Additional workup for neoplasm is recommended. PET/CT could be performed for ad ditional evaluation. FOLLOW UP CT CHEST RECOMMENDATION: Yes, PET/CT. Please see above discussion. CT LUNG RAD: Lung-Rad 4B Suspicious
== END | disposition home or self-care (01) ==
LOC: RADCTMAIN 16:49
PROVIDERS: ATTEND Family Medicine
DX: Z12.2 Encounter for screening for malignant neoplasm of respiratory organs (principal); R91.8 Other nonspecific abnormal finding of lung field; Z87.891 Personal history of nicotine dependence

== ENCOUNTER → 2018-11-24 | Outpatient (CLI) | payer BC ==
[2018-11-24 08:38] LABS: Blood Urea Nitrogen 18 mg/dL (9-20)
--- NOTE | 2018-11-24 10:52 | CT ---
EXAMINATION TYPE: CT chest w con DATE OF EXAM: 11/24/2018 COMPARISON: Prior CT low dose lung dated 11/10/2018 HISTORY: Abnormal CT, smoker CT DLP: 618 mGycm Automated exposure control for dose reduction was used. CONTRAST: CT scan of the chest is performed with IV Contrast, patient injected with 100 mL of Isovue 300. FINDINGS: LUNGS: The long focus of density described in prior report is noted and shows a nonaggressive appeara nce, focus in the right upper lobe shows a tubular appearance on axial image 27 with a suggestion of branch pattern, 12 mm in length. In the posterior subpleural location the oval density previously sebastián cribed measures approximately 8 mm. Suggestion of a subcentimeter nodular density on axial image 28 a lso in the right lower lobe measuring only approximately 3 to 4 mm. There are emphysematous changes w ithin the lungs. No pleural pericardial effusion. There is no pleural effusion or pneumothorax seen. The tracheobronchial tree is patent. MEDIASTINUM: There are no greater than 1 cm hilar or mediastinal lymph nodes. No pericardial effusi on is seen. AORTA: No additional significant abnormality is seen. OTHER: Exophytic cyst partially visualized mid pole left kidney. Postop changes are noted to the cer vical spine. IMPRESSION: Suspect findings are probably benign. Short interval follow-up CT could be performed in 6 months to assess for stability. Emphysema.
== END ==
LOC: RADCTMAIN 07:45
PROVIDERS: ATTEND Family Medicine
DX: J43.9 Emphysema, unspecified (principal)
CPT/HCPCS: 82565; 84520; 71260; 36415; Q9967

== ENCOUNTER 2018-11-28 18:27 | Emergency (ER) | payer BC ==
[2018-11-28 18:33] LABS: Glucose,Whole Blood 120 mg/dL (75-99)
[2018-11-28 18:35] VITALS: TEMP 97.8
--- NOTE | 2018-11-28 18:40 | ED ---
Altered Mental Status HPI - General Chief Complaint: Altered Mental Status Stated Complaint: Altered Mental Status Time Seen by Provider: 11/28/18 18:39 Source: EMS Mode of arrival: EMS Limitations: altered mental status - Related Data Home Medications Medication Instructions Recorded Confirmed Fenofibrate Nanocrystallized 145 mg PO W/SUPPER 12/20/13 01/25/18 [Fenofibrate] Simvastatin [Zocor] 40 mg PO W/SUPPER 12/20/13 01/25/18 metFORMIN HCL [Glucophage] 500 mg PO W/SUPPER 08/04/17 01/25/18 Ibuprofen [Motrin] 800 mg PO DAILY PRN 01/20/18 01/25/18 Previous Rx's Medication Instructions Recorded Metoprolol Succinate (ER) [Toprol 100 mg PO DAILY #30 tab 09/25/15 XL] Allergies Allergy/AdvReac Type Severity Reaction Status Date / Time No Known Allergies Allergy Verified 01/25/18 07:19 Review of Systems ROS Statement: Those systems with pertinent positive or pertinent negative responses have been documented in the HPI. ROS Other: All systems not noted in ROS Statement are negative. Past Medical History Past Medical History: Hyperlipidemia, Hypertension, Musculoskeletal Disorder, Sleep Apnea/CPAP/BIPAP Additional Past Medical History / Comment(s): uses CPAP, kidney stones History of Any Multi-Drug Resistant Organisms: None Reported Past Surgical History: Heart Catheterization, Joint Replacement, Orthopedic Surgery Additional Past Surgical History / Comment(s): Total R hip arthroplasty 06/14/17, total l hip arthroplasty 2 years ago, CERVICAL SURGERY WITH PLATE, URETHRA SURGERY, [facility] PROCEDURES Past Anesthesia/Blood Transfusion Reactions: No Reported Reaction Past Psychological History: No Psychological Hx Reported Smoking Status: Former smoker Past Alcohol Use History: None Reported Past Drug Use History: None Reported - Past Family History Mother Family Medical History: Cancer Additional Family Medical History / Comment(s): lung cancer Father Family Medical History: Myocardial Infarction ([place]) Additional Family Medical History / Comment(s): Father is 76 yrs old. General Exam Limitations: altered mental status Course Vital Signs 11/28/18 18:28 Temperature 97.8 F Pulse Rate 76 Respiratory 18 Rate Blood Pressure 141/95 O2 Sat by Pulse 94 L Oximetry Medical Decision Making - Lab Data Lab Results 11/28/18 Range/Units 18:30 POC Glucose (mg/dL) 120 H (75-99) mg/dL POC Glu Internet Developer ID Sarah Beckman - EKG Data -: EKG Interpreted by Me (EKG shows normal sinus rhythm rate of 73, MD 190, QRS 74, QTC 445) Disposition Referrals: Vega Luque MD [Primary Care Provider] - 1-2 days
[2018-11-28 18:48] LABS: Basophils % (A) 0 %; Eosinophils # (A) 0.1 k/uL (0-0.7); Eosinophils % (A) 1 %; HCT 40.8 % (39.0-53.0); HGB 13.3 gm/dL (13.0-17.5); Lymphocytes # (A) 1.7 k/uL (1.0-4.8); Lymphocytes % (A) 20 %; MCH 29.2 pg (25.0-35.0); MCHC 32.6 g/dL (31.0-37.0); MCV 89.7 fL (80.0-100.0); Mean Platelet Volume 8.3; Monocytes # (A) 0.4 k/uL (0-1.0); Monocytes % (A) 4 %; Neutrophils # (A) 6.3 k/uL (1.3-7.7); Neutrophils % (A) 73 %; Platelet Count 247 k/uL (150-450); RBC 4.55 m/uL (4.30-5.90); RDW 13.8 % (11.5-15.5); WBC 8.7 k/uL (3.8-10.6)
[2018-11-28 18:57] LABS: ALT 27 U/L (21-72); AST 31 U/L (17-59); African American GFR (CKD) >90 (>60 ml/min/1.73 sqM); Albumin 4.3 g/dL (3.5-5.0); Alcohol <10 mg/dL; Alkaline Phosphatase 43 U/L (38-126); Anion Gap 6 mmol/L; Blood Urea Nitrogen 21 mg/dL (9-20); Carbon Dioxide 26 mmol/L (22-30); Chloride 107 mmol/L (98-107); Glucose 128 mg/dL (74-99); Potassium 3.8 mmol/L (3.5-5.1); Sodium 139 mmol/L (137-145); Total Bilirubin 0.4 mg/dL (0.2-1.3); Total Protein 6.6 g/dL (6.3-8.2)
[2018-11-28] MEDS ORDERED: levETIRAcetam IV 1,000 MG in SALINE 1 100ML.BAG IVPB STA (18:57)
[2018-11-28 18:59] LABS: Creatine Kinase 168 U/L (55-170)
[2018-11-28 19:04] LABS: Prothrombin Time 10.7 sec (9.0-12.0)
--- NOTE | 2018-11-28 19:06 | ED ---
General Adult HPI - General Chief complaint: Altered Mental Status Stated complaint: Altered Mental Status Time Seen by Provider: 11/28/18 18:30 Source: EMS, RN notes reviewed Mode of arrival: EMS Limitations: altered mental status - History of Present Illness Initial comments: This is a 4-year-old male who is normally alert and oriented 3. Patient came into the emergency department because he is disoriented. states he came out of the bathroom when she knocked the door and he was covered in vomit and not making sense he could not tell her what it occurred or why he was drinking. states he continued to vomit at that time. states he complained of neck pain and a headache. Patient is unable to give any accurate history at this time other than he has a headache and neck pain. Patient doesn't remember what happened in the bathroom. Family states he has no significant medical history. - Related Data Home Medications Medication Instructions Recorded Confirmed Fenofibrate Nanocrystallized 145 mg PO W/SUPPER 12/20/13 11/28/18 [Fenofibrate] Simvastatin [Zocor] 40 mg PO W/SUPPER 12/20/13 11/28/18 metFORMIN HCL [Glucophage] 500 mg PO W/SUPPER 08/04/17 11/28/18 Previous Rx's Medication Instructions Recorded Metoprolol Succinate (ER) [Toprol 100 mg PO DAILY #30 tab 09/25/15 XL] Allergies Allergy/AdvReac Type Severity Reaction Status Date / Time No Known Allergies Allergy Verified 11/28/18 19:09 Review of Systems ROS Statement: Those systems with pertinent positive or pertinent negative responses have been documented in the HPI. ROS Other: All systems not noted in ROS Statement are negative. Past Medical History Past Medical History: Hyperlipidemia, Hypertension, Musculoskeletal Disorder, Sleep Apnea/CPAP/BIPAP Additional Past Medical History / Comment(s): uses CPAP, kidney stones History of Any Multi-Drug Resistant Organisms: None Reported Past Surgical History: Heart Catheterization, Joint Replacement, Orthopedic Surgery Additional Past Surgical History / Comment(s): Total R hip arthroplasty 06/14/17, total l hip arthroplasty 2 years ago, CERVICAL SURGERY WITH PLATE, URETHRA SURGERY, [facility] PROCEDURES Past Anesthesia/Blood Transfusion Reactions: No Reported Reaction Past Psychological History: No Psychological Hx Reported Smoking Status: Former smoker Past Alcohol Use History: None Reported Past Drug Use History: None Reported - Past Family History Mother Family Medical History: Cancer Additional Family Medical History / Comment(s): lung cancer Father Family Medical History: Myocardial Infarction ([place]) Additional Family Medical History / Comment(s): Father is 76 yrs old. General Exam - General Exam Comments Initial Comments: GENERAL: Patient is well-developed and well-nourished. Patient is nontoxic and well- hydrated and is in mild distress. ENT: Neck is soft and supple. No significant lymphadenopathy is noted. Oropharynx i s clear. Moist mucous membranes. Neck has full range of motion without eliciting any pain. Patient has a laceration above the right eyebrow measuring about 1.5 cm. EYES: The sclera were anicteric and conjunctiva were pink and moist. Extraocular movements were intact and pupils were equal round and reactive to light. Eyelids were unremarkable. PULMONARY: Unlabored respirations. Good breath sounds bilaterally. No audible rales rhonchi or wheezing was noted. CARDIOVASCULAR: There is a regular rate and rhythm without any murmurs gallops or rubs. ABDOMEN: Soft and nontender with normal bowel sounds. No palpable organomegaly was noted. There is no palpable pulsatile mass. SKIN: 1.5 cm laceration above the right eyebrow NEUROLOGIC: Patient is alert and oriented 1. Cranial nerves II through XII are grossly intact. Motor and sensory are also intact. Normal speech, volume and content. Symmetrical smile. MUSCULOSKELETAL: Normal extremities with adequate strength and full range of motion. LYMPHATICS: No significant lymphadenopathy is noted PSYCHIATRIC: Normal psychiatric evaluation. Limitations: altered mental status Course Vital Signs 11/28/18 11/28/18 11/28/18 18:28 18:37 18:48 Temperature 97.8 F Pulse Rate 76 Respiratory 18 Rate Blood Pressure 141/95 137/94 143/90 O2 Sat by Pulse 94 L Oximetry 11/28/18 18:50 Temperature Pulse Rate Respiratory Rate Blood Pressure 143/88 O2 Sat by Pulse Oximetry Medical Decision Making - Medical Decision Making EKG shows a normal sinus rhythm at 73 bpm. It was 190 QRS is 94 QT interval 44 QTC is 445 per patient's EKG shows no ST segment elevation or depression or T wave abnormalities are noted. IV the CAT scan by myself look like a subarachnoid hemorrhage I immediately contacted the Neurointerventionalist and got him on the computer to be able to indicate with family and/or patient if necessary. I ordered Keppra as well as Cardene. 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 The neurointerventionalist wanted the patient transferred to [facility] after he spoke with patient's and she was in agreement with the transfer. I spoke with [facility] and agreed to accept the patient I transfer the patient. - Lab Data Result diagrams: 11/28/18 18:30 11/28/18 18:30 Lab Results 11/28/18 11/28/18 11/28/18 Range/Units 18:30 18:30 18:30 WBC 8.7 (3.8-10.6) k/uL RBC 4.55 (4.30-5.90) m/uL Hgb 13.3 (13.0-17.5) gm/dL Hct 40.8 (39.0-53.0) % MCV 89.7 (80.0-100.0) fL MCH 29.2 (25.0-35.0) pg MCHC 32.6 (31.0-37.0) g/dL RDW 13.8 (11.5-15.5) % Plt Count 247 (150-450) k/uL Neutrophils % 73 % Lymphocytes % 20 % Monocytes % 4 % Eosinophils % 1 % Basophils % 0 % Neutrophils # 6.3 (1.3-7.7) k/uL Lymphocytes # 1.7 (1.0-4.8) k/uL Monocytes # 0.4 (0-1.0) k/uL Eosinophils # 0.1 (0-0.7) k/uL Basophils # 0.0 (0-0.2) k/uL PT (9.0-12.0) sec INR (<1.2) APTT (22.0-30.0) sec Sodium (137-145) mmol/L Potassium (3.5-5.1) mmol/L Chloride (98-107) mmol/L Carbon Dioxide (22-30) mmol/L Anion Gap mmol/L BUN (9-20) mg/dL Creatinine (0.66-1.25) mg/dL Est GFR (CKD-EPI)AfAm (>60 ml/min/1.73 sqM) Est GFR (CKD-EPI)NonAf (>60 ml/min/1.73 sqM) Glucose (74-99) mg/dL POC Glucose (mg/dL) 120 H (75-99) mg/dL POC Glu Epoxy Specialist Sarah Colon Plasma Lactic Acid Denzel (0.7-2.0) mmol/L Calcium (8.4-10.2) mg/dL Total Bilirubin (0.2-1.3) mg/dL AST (17-59) U/L ALT (21-72) U/L Alkaline Phosphatase (38-126) U/L Total Creatine Kinase 168 (55-170) U/L CK-MB (CK-2) 1.2 (0.0-2.4) ng/mL CK-MB (CK-2) Rel Index 0.7 Troponin I <0.012 (0.000-0.034) ng/mL Total Protein (6.3-8.2) g/dL Albumin (3.5-5.0) g/dL Serum Alcohol mg/dL 11/28/18 11/28/18 11/28/18 Range/Units 18:30 18:30 18:30 WBC (3.8-10.6) k/uL RBC (4.30-5.90) m/uL Hgb (13.0-17.5) gm/dL Hct (39.0-53.0) % MCV (80.0-100.0) fL MCH (25.0-35.0) pg MCHC (31.0-37.0) g/dL RDW (11.5-15.5) % Plt Count (150-450) k/uL Neutrophils % % Lymphocytes % % Monocytes % % Eosinophils % % Basophils % % Neutrophils # (1.3-7.7) k/uL Lymphocytes # (1.0-4.8) k/uL Monocytes # (0-1.0) k/uL Eosinophils # (0-0.7) k/uL Basophils # (0-0.2) k/uL PT 10.7 (9.0-12.0) sec INR 1.0 (<1.2) APTT 18.8 L (22.0-30.0) sec Sodium 139 (137-145) mmol/L Potassium 3.8 (3.5-5.1) mmol/L Chloride 107 (98-107) mmol/L Carbon Dioxide 26 (22-30) mmol/L Anion Gap 6 mmol/L BUN 21 H (9-20) mg/dL Creatinine 1.00 (0.66-1.25) mg/dL Est GFR (CKD-EPI)AfAm >90 (>60 ml/min/1.73 sqM) Est GFR (CKD-EPI)NonAf 82 (>60 ml/min/1.73 sqM) Glucose 128 H (74-99) mg/dL POC Glucose (mg/dL) (75-99) mg/dL POC Glu Epoxy Specialist ID Plasma Lactic Acid Denzel 1.3 (0.7-2.0) mmol/L Calcium 9.0 (8.4-10.2) mg/dL Total Bilirubin 0.4 (0.2-1.3) mg/dL AST 31 (17-59) U/L ALT 27 (21-72) U/L Alkaline Phosphatase 43 (38-126) U/L Total Creatine Kinase (55-170) U/L CK-MB (CK-2) (0.0-2.4) ng/mL CK-MB (CK-2) Rel Index Troponin I (0.000-0.034) ng/mL Total Protein 6.6 (6.3-8.2) g/dL Albumin 4.3 (3.5-5.0) g/dL Serum Alcohol <10 mg/dL Critical Care Time Critical Care Time: Yes Total Critical Care Time: 45 Disposition Clinical Impression: Subarachnoid hemorrhage Disposition: OTHER INSTITUTION NOT DEFINED Referrals: Vega Luque MD [Primary Care Provider] - 1-2 days Time of Disposition: 19:38
[2018-11-28 19:13] LABS: Creatine Kinase MB 1.2 ng/mL (0.0-2.4); Partial Thromboplastin Time 18.8 sec (22.0-30.0); Troponin I <0.012 ng/mL (0.000-0.034)
--- NOTE | 2018-11-28 19:13 | CT ---
EXAMINATION TYPE: CT brain cspine wo con DATE OF EXAM: 11/28/2018 COMPARISON: None HISTORY: fall. ams. CT DLP: 1521.8 mGycm Automated exposure control for dose reduction was used. TECHNIQUE: CT scan of the head and cervical spine are performed without contrast. FINDINGS: There is diffuse subarachnoid hemorrhage, appearing most pronounced in the pala of Will is region near the tricuspid position of the basilar tip. There is no skull fracture. There is no midline shift of structures. No other intra-axial findings. T he ventricles and sulcal pattern and cisterns are otherwise unremarkable. Mastoid sinus air cells, mi ddle ear cavities, and paranasal sinuses are clear. Orbits are intact. Cervical spine is visualized in its entirety from C1 through upper thoracic levels and demonstrates s atisfactory alignment without evidence of acute fracture or dislocation. Prevertebral soft tissue ap pears within normal limits. Fusion hardware is intact. Multilevel moderate cervical spondylosis lantigua es noted. The C1-C2 articulation is unremarkable. Results discussed with ordering physician at 7:05 PM in order to ensure intact communications. IMPRESSION: 1. Diffuse subarachnoid hemorrhage; CTA in progress. 2. There is no acute fracture or dislocation evident in the cervical spine.
[2018-11-28] MEDS ORDERED: ONDANSETRON 4 MG/2 ML VIAL IVP STA (19:17)
[2018-11-28] MEDS ORDERED: HYDROmorphone 0.5 MG/0.5 ML SYRINGE IVP STA (19:17)
[2018-11-28] MEDS ORDERED: niCARdipine 20 MG in SODIUM CHLORIDE 0.9% 192 ML IV SCH (19:30)
--- NOTE | 2018-11-28 19:47 | CT ---
EXAMINATION TYPE: CT angio head neck contrast and with 3-D reconstruction renderings DATE OF EXAM: 11/28/2018 HISTORY: AMS COMPARISON: CT head without contrast 11/28/2018 CT DLP: 610.6 mGycm. Automated Exposure Control for Dose Reduction was Utilized. TECHNIQUE: CTA scan of the neck is performed with IV Contrast, patient injected with 50 mL of Isovue 370, axial images are obtained, coronal and sagittal reformatted images are reviewed. Three-D recons tructed images are created on an independent workstation and reviewed. NECK CTA FINDINGS: The bilateral carotid and vertebral arterial systems are widely patent throughout the neck. Venous structures are unremarkable. Airway is negative. No soft tissue mass or adenopathy. No incidental findings. Moderate patient motion artifact noted. HEAD CTA FINDINGS: The subarachnoid hemorrhage is redemonstrated. There is a 4 mm basilar tip aneurysm pointing anteroin feriorly, perhaps most conspicuous on the sagittal sequences. No other aneurysms. Moderate patient motion artifact noted. Results discussed with ordering physician just now been noted to ensure intact communications. IMPRESSION: MARKED SUBARACHNOID HEMORRHAGE WITH 4 MM BASILAR TIP ANEURYSM.
[2018-11-28 20:18] VITALS: BP 141/87; PULSE 75; RESP 15
== END 2018-11-28 20:22 | disposition other institution (70) ==
LOC: EC 18:27
DX: I60.9 Nontraumatic subarachnoid hemorrhage, unspecified (principal); E78.5 Hyperlipidemia, unspecified; I10 Essential (primary) hypertension; G47.30 Sleep apnea, unspecified; Z79.84 Long term (current) use of oral hypoglycemic drugs; Z79.899 Other long term (current) drug therapy; Z87.891 Personal history of nicotine dependence; Z95.5 Presence of coronary angioplasty implant and graft; Z96.643 Presence of artificial hip joint, bilateral
CPT/HCPCS: 36415; 93005; 80053; 82550; 82553; 83605; 84484; 85025; 85610; 85730; 80320; 72125; 70496; 70450; 70498; 99291; 96365; 96367; 96375 ×2; J2405; J1953; J1170; Q9967

== ENCOUNTER 2019-01-18 22:40 | Emergency (ER) | payer BC ==
[2019-01-18 22:58] VITALS: RESP 18
[2019-01-19] MEDS ORDERED: LORazepam 1 MG TAB PO STA (00:40)
--- NOTE | 2019-01-19 00:58 | ED ---
General Adult HPI - General Chief complaint: Altered Mental Status Stated complaint: mental health Time Seen by Provider: 01/18/19 22:47 Source: patient, EMS Mode of arrival: EMS Limitations: physical limitation - History of Present Illness Initial comments: 's patient is 58-year-old man sent in from his long-term care facility to have psychiatric evaluation. The patient reportedly was not cooperative and behaving aggressively towards one staff members there. Both the patient and the family state that the patient does not have good relationship with this one particular staff member. The patient denies any specific homicidal ideation. Patient denies any complaints here -: hour(s) Improves with: none Worsens with: none Associated Symptoms: denies other symptoms Treatments Prior to Arrival: none - Related Data Home Medications Medication Instructions Recorded Confirmed Simvastatin [Zocor] 40 mg PEG/G-TUBE W/SUPPER 12/20/13 01/18/19 Aspirin [Children's Aspirin] 81 mg PEG/G-TUBE DAILY 01/18/19 01/18/19 Cephalexin [Keflex] 500 mg PEG/G-TUBE Q6HR 01/18/19 01/18/19 Heparin Sodium,Porcine [Heparin 5,000 unit SQ Q8HR 01/18/19 01/18/19 Sodium] INSULIN LISPRO (HumaLOG) [HumaLOG] See Protocol SQ ACHS 01/18/19 01/18/19 Melatonin 3 mg PEG/G-TUBE HS 01/18/19 01/18/19 Metoprolol Tartrate [Lopressor] 50 mg PEG/G-TUBE BID 01/18/19 01/18/19 Pantoprazole Sod Packet 40mg 1 packet PEG/G-TUBE DAILY 01/18/19 01/18/19 Psyllium Husk 100% [Metamucil 6 gm PEG/G-TUBE BID 01/18/19 01/18/19 Packet] Allergies Allergy/AdvReac Type Severity Reaction Status Date / Time No Known Allergies Allergy Verified 01/18/19 23:09 Review of Systems ROS Statement: Those systems with pertinent positive or pertinent negative responses have been documented in the HPI. ROS Other: All systems not noted in ROS Statement are negative. Constitutional: Denies: fever, chills Respiratory: Denies: cough, dyspnea Cardiovascular: Denies: chest pain Gastrointestinal: Denies: abdominal pain Neurological: Denies: headache Psychiatric: Denies: anxiety, depression, homicidal thoughts, suicidal thoughts Past Medical History Past Medical History: Hyperlipidemia, Hypertension, Musculoskeletal Disorder, Sleep Apnea/CPAP/BIPAP Additional Past Medical History / Comment(s): uses CPAP, kidney stones History of Any Multi-Drug Resistant Organisms: None Reported Past Surgical History: Heart Catheterization, Joint Replacement, Orthopedic Surgery Additional Past Surgical History / Comment(s): Total R hip arthroplasty 06/14/17, total l hip arthroplasty 2 years ago, CERVICAL SURGERY WITH PLATE, URETHRA SURGERY, [facility] PROCEDURES Past Anesthesia/Blood Transfusion Reactions: No Reported Reaction Past Psychological History: No Psychological Hx Reported Smoking Status: Former smoker Past Alcohol Use History: None Reported Past Drug Use History: None Reported - Past Family History Mother Family Medical History: Cancer Additional Family Medical History / Comment(s): lung cancer Father Family Medical History: Myocardial Infarction (HI) Additional Family Medical History / Comment(s): Father is 76 yrs old. General Exam Limitations: physical limitation General appearance: alert, in no apparent distress Head exam: Present: normocephalic Eye exam: Present: normal appearance Neck exam: Present: normal inspection, full ROM Respiratory exam: Present: normal lung sounds bilaterally. Absent: respiratory distress, wheezes, rales, rhonchi, stridor Cardiovascular Exam: Present: regular rate, normal rhythm GI/Abdominal exam: Present: soft. Absent: tenderness Neurological exam: Present: alert Psychiatric exam: Absent: depressed, agitated, anxious, manic, homicidal idea tion, suicidal ideation Skin exam: Present: warm, dry, intact, normal color. Absent: rash Course Vital Signs 01/18/19 01/19/19 01/19/19 22:48 00:30 01:51 Temperature 97.3 F L 98.1 F 98 F Pulse Rate 116 H 110 H 100 Respiratory 18 18 18 Rate Blood Pressure 146/97 131/100 128/92 O2 Sat by Pulse 98 98 100 Oximetry Medical Decision Making - Medical Decision Making Patient is 58-year-old man sent from long-term [facility] for psychiatric evaluation. He had reportedly been not cooperative and possibly aggressive towards a staff member there. The patient here is alert and appropriate. No behavioral issues here. Patient will be seen by behavioral health. - Lab Data Lab Results 01/19/19 Range/Units 00:30 Urine Opiates Screen Not Detected (NotDetected) Ur Oxycodone Screen Not Detected (NotDetected) Urine Methadone Screen Not Detected (NotDetected) Ur Propoxyphene Screen Not Detected (NotDetected) Ur Barbiturates Screen Not Detected (NotDetected) U Tricyclic Antidepress Not Detected (NotDetected) Ur Phencyclidine Scrn Not Detected (NotDetected) Ur Amphetamines Screen Not Detected (NotDetected) U Methamphetamines Scrn Not Detected (NotDetected) U Benzodiazepines Scrn Not Detected (NotDetected) Urine Cocaine Screen Not Detected (NotDetected) U Marijuana (THC) Screen Not Detected (NotDetected) Disposition Clinical Impression: Mood disorder Disposition: HOME SELF-CARE Condition: Good Instructions (If sedation given, give patient instructions): Mood Disorders (ED) Is patient prescribed a controlled substance at d/c from ED?: No Referrals: Vega Luque MD [Primary Care Provider] - 1-2 days
[2019-01-19 01:13] LABS: Amphetamine Screen,Urine Not Detected (NotDetected); Barbiturate Screen,Urine Not Detected (NotDetected); Benzodiazepines Screen,Urine Not Detected (NotDetected); Cocaine Screen,Urine Not Detected (NotDetected); Methadone Screen, Urine Not Detected (NotDetected); Opiate Screen,Urine Not Detected (NotDetected); Oxycodone Screen, Urine Not Detected (NotDetected); Phencyclidine Screen,Urine Not Detected (NotDetected); Tricyclic Antidepressant,Urine Not Detected (NotDetected); Urn Cannabinoid Scrn Not Detected (NotDetected)
[2019-01-19 01:54] VITALS: BP 128/92; PULSE 100; TEMP 98
== END 2019-01-19 01:38 | disposition home or self-care (01) ==
LOC: EC 22:40
DX: F39 Unspecified mood [affective] disorder (principal); E78.5 Hyperlipidemia, unspecified; I10 Essential (primary) hypertension; G47.39 Other sleep apnea; Z87.891 Personal history of nicotine dependence; Z79.4 Long term (current) use of insulin; Z79.82 Long term (current) use of aspirin; Z79.899 Other long term (current) drug therapy; Z99.89 Dependence on other enabling machines and devices
CPT/HCPCS: 80306; 99285

== ENCOUNTER → 2019-01-31 | Outpatient (CLI) | payer BC ==
[2019-01-31 12:21] LABS: Basophils % (A) 1 %; Eosinophils # (A) 0.2 k/uL (0-0.7); Eosinophils % (A) 3 %; HCT 41.5 % (39.0-53.0); HGB 13.2 gm/dL (13.0-17.5); Hypochromasia Slight; Lymphocytes # (A) 1.6 k/uL (1.0-4.8); Lymphocytes % (A) 21 %; MCH 29.5 pg (25.0-35.0); MCHC 31.9 g/dL (31.0-37.0); MCV 92.5 fL (80.0-100.0); Mean Platelet Volume 7.9; Monocytes # (A) 0.5 k/uL (0-1.0); Monocytes % (A) 6 %; Neutrophils # (A) 5.2 k/uL (1.3-7.7); Neutrophils % (A) 68 %; Platelet Count 289 k/uL (150-450); RBC 4.48 m/uL (4.30-5.90); RDW 14.8 % (11.5-15.5); WBC 7.7 k/uL (3.8-10.6)
[2019-01-31 15:18] LABS: T4, Free (Free Thyroxine) 0.9 ng/dL (0.80-1.80)
== END | disposition home or self-care (01) ==
LOC: LABWHC1 11:37
PROVIDERS: ATTEND Internal Medicine Cardiovascular Disease
DX: R00.0 Tachycardia, unspecified (principal)
CPT/HCPCS: 36415; 84439; 84443; 85025

== ENCOUNTER → 2019-02-10 | Outpatient (CLI) | payer BC ==
--- NOTE | 2019-02-10 11:45 | CT ---
EXAMINATION TYPE: CT brain wo con DATE OF EXAM: 02/10/2019 COMPARISON: 11/28/2018 INDICATION: Follow up for stroke DLP: 875.8 mGycm, Automated exposure control for dose reduction was used. CONTRAST: None CT of the brain is performed utilizing 3 mm thick sections through the posterior fossa and 3 mm thick sections through the remaining calvarium. Study is performed within 24 hours of arrival to the hosp ital. No abnormal hyperdensity is present to suggest an acute intracranial hemorrhage. No mass lesion is evident. No acute infarcts are evident. There is an old left posterior inferior cerebellar artery infarct. Nolvia m hardening artifact from a aneurysm clip is within the mid brain region. Shunt catheter enters on th e right with the tip in the midline of the right lateral ventricle. Ventricles are normal in the midl ine. Temporal horn dilatation is not evident. Ventricles and sulci are appropriate for the patient age. No hydrocephalus or atrophy is appreciated . Paranasal sinuses and mastoid air cells within the [id number] are clear. IMPRESSIONS: 1. Shunt catheter without evidence of hydrocephalus. 2. 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 3. Metallic artifact from aneurysm clip.
== END | disposition home or self-care (01) ==
LOC: RADCTMAIN 09:53
PROVIDERS: ATTEND Specialist
DX: G91.1 Obstructive hydrocephalus (principal); Z98.2 Presence of cerebrospinal fluid drainage device; Z86.73 Personal history of transient ischemic attack (TIA), and cerebral infarction without residual deficits
CPT/HCPCS: 70450

== ENCOUNTER → 2019-04-03 | Outpatient (CLI) | payer BC ==
--- NOTE | 2019-04-04 09:44 | MR ---
EXAMINATION TYPE: MR brain wo con DATE OF EXAM: 04/03/2019 COMPARISON: Prior MRI brain September 03, 2013. Prior CT brain March 10, 2019. HISTORY: Multiple aneurysms, stroke, F/U from surgery TECHNIQUE: Multiplanar, multisequence imaging of the brain and brainstem is performed without IV cont rast. FINDINGS: Diffusion weighted images demonstrate no evidence of a recent infarct or other diffusion abnormality. There is mild bilateral symmetric frontal lobe atrophy redemonstrated. There is artifact from right V P shunt catheter terminating near posterior aspect left frontal horn. Ventricle size is not significa ntly changed from recent CT. There is peripheral sulcal low T2 signal likely reflecting product of ol d blood product prior intracranial subarachnoid hemorrhage bilaterally more prominent on the left ivon moe right side Midline structures demonstrate normal morphology. The craniocervical junction appears within normal limits. Normal vascular flow voids are present. Mild mucosal thickening involving maxillary, sphenoid and ethmoid sinuses bilaterally. Lobes are intact bilaterally. Old lacunar infarct left carolin axial i mage 12. Old infarct left cerebellum axial image 11. Artifact from aneurysm clipping suprasellar leve l axial image 12 also noted. IMPRESSION: Evidence of prior intracranial hemorrhage. Right-sided REVIEW APPRAISER shunt catheter without hydrocep halus. Evidence of prior aneurysm surgery with old left cerebellar infarct. No significant change fro m outside CT.
== END | disposition home or self-care (01) ==
LOC: RADMRIMAIN 15:50
PROVIDERS: ATTEND Psychiatry & Neurology Neurology
DX: I60.8 Other nontraumatic subarachnoid hemorrhage (principal); I63.9 Cerebral infarction, unspecified; Z98.2 Presence of cerebrospinal fluid drainage device
CPT/HCPCS: 70551

== ENCOUNTER → 2019-07-28 | Outpatient (CLI) | payer BC ==
--- NOTE | 2019-07-29 11:13 | CT ---
EXAMINATION TYPE: CT chest w con DATE OF EXAM: 07/28/2019 COMPARISON: 11/24/2018 HISTORY: Solitary pulmonary nodule. CT DLP: 398.70 mGycm. Automated Exposure Control for Dose Reduction was Utilized. TECHNIQUE: CT scan of the thorax is performed following with IV Contrast, patient injected with 100 mL of Isovue 300. FINDINGS: LUNGS: The right middle lobe elongated density again described on the prior does show a tubular appea oscar along branching vessels on series 5 image 26 and from coronal image 52 through 54. This is slig htly more prominent than the prior of 11/24/2018. This measures again approximately 12 mm in length how ever measures approximately 7 mm in thickness as opposed to 4 mm on the prior. The previously seen arrieta bpleural density likely relates to atelectasis on series 5 image 28 and is unchanged from the prior. This is seen in the right lower lobe posteriorly with surrounding atelectasis. In the superior segmen t of the right lower lobe there is a second rounded density within the surrounding atelectasis measur ing approximately 6 mm that has slightly increased in size. On soft tissue algorithm series 4 image 2 3 this appears as a nodule rather than atelectasis. There is no pleural effusion or pneumothorax seen. The tracheobronchial tree is patent. Mild backgro und emphysematous change. MEDIASTINUM: There are no greater than 1 cm hilar or mediastinal lymph nodes. No pericardial effusi on is seen. OTHER: Subcutaneous catheter within the right anterior chest wall is partially visualized. A 3.4 cm l eft renal cyst is again partially visualized. Mild degree hepatic steatosis is seen. Mild degenerativ e change of the spine and partial visualization of cervical fusion. IMPRESSION: 1. Slight interval growth of a superior segment right lower lobe pulmonary nodule measuring 6 mm. 2. Stability of the additional posterior right lower lobe pulmonary nodule measuring 4 mm versus roun ded atelectasis. 3. Slight increased thickness of the tubular right middle lobe density along pulmonary vasculature, p ossibly vascular ectasia, endobronchial mucous plugging, or less likely pulmonary nodule. This now me asures 12 x 7 mm as opposed to 12 x 4 mm on the prior.
== END | disposition home or self-care (01) ==
LOC: RADCTMAIN 08:46
PROVIDERS: ATTEND Internal Medicine Critical Care Medicine
DX: R91.8 Other nonspecific abnormal finding of lung field (principal)
CPT/HCPCS: 71260; Q9967

== ENCOUNTER → 2020-01-31 | Outpatient (CLI) | payer BC ==
--- NOTE | 2020-01-31 08:24 | CT ---
EXAMINATION TYPE: CT brain wo con DATE OF EXAM: 01/31/2020 COMPARISON: 02/10/2019 HISTORY: 59-year-old male G91.1 obstructive hydrocephalus/ stroke TECHNIQUE: Examination was done in axial plane without intravenous contrast. Coronal and sagittal r econstructions performed. CT DLP: 1054.2 mGycm Automated exposure control for dose reduction was used. FINDINGS: There is no evidence of acute intracranial hemorrhage, acute ischemic changes, mass, mass-effect, or extra-axial fluid collection. There is no effacement of cerebral sulci or basal subarachnoid cister ns. There is no hydrocephalus. There is no midline shift. Montero-white matter distinction is preserv ed. A right frontoparietal BIN OPERATOR shunt catheter is redemonstrated. There is some gliosis and encephalomalaci a along the catheter tract. The catheter extends just to the left of midline within the posterior asp ect of the frontal horn of the left lateral ventricle, unchanged from prior exam. Overall ventricular caliber is similar to slightly smaller as the temporal bones are now flatter compared to prior. Mild bifrontal cortical atrophy. Old area of encephalomalacia within the left cerebellum. Artifact from coil mass redemonstrated at the left prepontine cistern. Moderate mucosal thickening scattered throughout the visualized paranasal sinuses. Mastoid air cells well pneumatized. Visualized orbits and globes are intact. IMPRESSION: 1. Redemonstrated right frontoparietal BIN OPERATOR shunt catheter. Tip is stable just crossing the midline wit hin the posterior aspect of the frontal horn of the left lateral ventricle. 2. No hydrocephalus. The ventricular system shows slightly greater degree of shunting as compared to 03/10/2019 as the temporal horns are flattened on the current exam. 3. No acute intracranial abnormality seen. Old infarct within the left cerebellum and stable coil mas s within the left prepontine cistern.
== END | disposition home or self-care (01) ==
LOC: RADCTMAIN 06:57
PROVIDERS: ATTEND Specialist
DX: I63.89 Other cerebral infarction (principal); R22.0 Localized swelling, mass and lump, head; Z98.2 Presence of cerebrospinal fluid drainage device
CPT/HCPCS: 70450

== ENCOUNTER → 2020-06-18 | Outpatient (CLI) | payer BC ==
[2020-06-18 07:58] LABS: African American GFR (CKD) >90 (>60 ml/min/1.73 sqM); Blood Urea Nitrogen 11 mg/dL (9-20); Non-African American GFR(CKD) >90 (>60 ml/min/1.73 sqM)
--- NOTE | 2020-06-18 11:11 | CT ---
EXAMINATION TYPE: CT chest w con DATE OF EXAM: 06/18/2020 COMPARISON: 07/28/2019 HISTORY: Lung nodule CT DLP: 535.7 mGycm, Automated exposure control for dose reduction was used. CONTRAST: Performed injected with 100 mL of Isovue 300. TECHNIQUE: Axial images were obtained at 5 mm thick sections. Reconstructed images are reviewed on Yoyo computer in the coronal plane. FINDINGS: Portion of the thyroid visualized is normal. The tubular prominence following a vascular course the right middle lobe, series 4 image 27 and appea rs similar. Current measurement estimate is 1.6 x 0.6 cm which is slightly longer than the comparison . A new subtle 0.5 cm slightly irregular densities slightly posterior to this tubular lesion. There i s an oval density within the posterior right lung, series 4 image 28 measuring 0.4 x 1.0 centimeters. Previous measurement 0.6 x 0.9 cm. No enlarged mediastinal or hilar adenopathy is evident. The ascending aorta diameter at the level o f the main pulmonary artery is 3.4 cm. The main pulmonary artery diameter at the bifurcation is 2.[address] sections are obtained through the upper abdomen. Abdomen is essentially unremarkable. Left renal cyst is noted. IMPRESSIONS: 1. New and subtly enlarging nodules within the right lung. Consider PET CT.
== END | disposition home or self-care (01) ==
LOC: RADCTMAIN 07:21
PROVIDERS: ATTEND Internal Medicine Critical Care Medicine
DX: R91.8 Other nonspecific abnormal finding of lung field (principal)
CPT/HCPCS: 82565; 84520; 71260; 36415; Q9967

== ENCOUNTER → 2020-07-04 | Outpatient (CLI) | payer BC ==
--- NOTE | 2020-07-05 09:15 | PE ---
Nuclear medicine PET/CT HISTORY: Solitary pulmonary nodule, initial Patient received 9.7 mCi F-18 FDG intravenously in delayed scanning was performed from the skull base to the mid thighs. Localization and attenuation correction CT scan was performed. Correlation to CT chest 06/18/2020 CT 11/24/2018 Chest and neck: The nodules described in the right lung are not significant change compared to prior CT scans. There is no pneumothorax or pleural effusion. No suspicious uptake. There is no mediastinal , axillary, or hilar adenopathy, no cervical or supraclavicular adenopathy. Ventricular peritoneal sh unt tubing is again noted incidentally. Metallic density present in the brain shows some streak artif act likely post aneurysm coil. ABDOMEN: No evident adrenal mass. No suspicious uptake, no retroperitoneal adenopathy. There is no as cites. Left renal cyst is present in exophytic location at the upper old. Uptake associated with the bowel is likely physiologic but indeterminate in the descending colon, there is some bowel wall thick ening, diverticular change. Osseous structures show no suspicious uptake. Degenerative disc change and facet arthropathy change i s present in the lumbar spine. IMPRESSION: No suspicious uptake, suspect the nodules within the lungs are benign. Consider follow-up to assess for stability. Indeterminate uptake associated with the descending colon, difficult to exc lude mucosal mass, consider colonoscopy if this has not been performed
== END | disposition home or self-care (01) ==
LOC: RADPETMAIN 12:17
PROVIDERS: ATTEND Internal Medicine Critical Care Medicine
DX: R91.1 Solitary pulmonary nodule (principal)
CPT/HCPCS: 78815; A9552

== ENCOUNTER → 2020-07-07 | Outpatient (CLI) | payer BC ==
[2020-07-07 10:57] LABS: African American GFR (CKD) 105.7 (60.0-200.0); Albumin 4.4 g/dL (3.80-4.90); Albumin/Globulin Ratio 2.32 (1.60-3.17); Anion Gap 7.3 mmol/L (4.00-12.00); BUN/Creat Ratio 14.44 Ratio (12.00-20.00); Calcium 9.1 mg/dL (8.7-10.3); Carbon Dioxide 29.7 mmol/L (21.6-31.8); Chol/HDL Ratio 4.27; Globulin 1.9 g/dL (1.6-3.3); LDL Cholesterol,Calculated 54.2 mg/dL (0.0-131.0); Non-African American GFR(CKD) 91.2 (60.0-200.0); Potassium 4.3 mmol/L (3.5-5.5); Total Bilirubin 0.9 mg/dL (0.2-1.2); Total Protein 6.3 g/dL (6.2-8.2); VLDL Calculation 43.8 mg/dL (5.00-40.00)
[2020-07-07 14:45] LABS: Hemoglobin A1C 7.4 % (4.0-6.0)
== END | disposition home or self-care (01) ==
LOC: LABWHC1 07:50
PROVIDERS: ATTEND Family Medicine
DX: E11.9 Type 2 diabetes mellitus without complications (principal)
CPT/HCPCS: 36415; 80053; 80061; 83036

== ENCOUNTER → 2020-10-29 | Outpatient (CLI) | payer BC ==
--- NOTE | 2020-10-29 21:07 | CONS ---
CONSULTATION This is a 60-year-old gentleman who has been [facility]-evaluated in [facility] for obstructive sleep apnea-hypopnea syndrome. Patient did not come to Sleep Center for more than 3 years. HISTORY OF PRESENT ILLNESS/SLEEP WAKE EVALUATION: Last time I saw the patient in May 2018. The patient continues to use his CPAP equipment every night for the whole night. Practically no snoring with the machine. SLEEP SCHEDULE: His sleep schedule from 9 p.m. to 5:30 a.m. He wakes up from sleep occasionally with nocturia only 1 time. During the day, he may take one nap in the afternoon. [place] Sleepiness Scale is 9, which is on the borderline. I checked the CPAP unit. CPAP pressure is 10 cm of water. Usage is 30/30 nights and 28/30 nights for more than 4 hours. Leak is 32 L/minute. Apnea-hypopnea index is 4.5, which is in normal range. The patient is using medium size nasal pillows mask . PAST MEDICAL HISTORY: Positive for hydrocephalus with TRAFFIC MANAGER shunt and stroke in November of 2018 with residual right- sided weakness, history of cerebral aneurysm. PAST SURGICAL HISTORY: Bilateral hip replacement, history of cervical fusion, UPPP and tonsillectomy. MEDICATIONS: Metoprolol 75 mg once a day, aspirin 81 mg once a day, Anoro Ellipta inhaler 62.5 mcg, 25 mcg, atorvastatin 40 mg once a day. SOCIAL HISTORY: Positive for smoking up to 2 packs a day for about 30 years, quit in 2004. Alcohol consumption: None at the present time. REVIEW OF SYSTEMS: Occasional awakenings from sleep with nocturia, weakness over the left side. PHYSICAL EXAMINATION: GENERAL: gentleman without distress. BP 136/87, HR 87, RR 18, height 5 feet and 6 inches, weight 207.8 pounds, temperature 98.0, oxygen saturation at room air 97%. Oropharynx moderately low position of soft palate. Weakness of left arm and left leg. NECK: Supple, no JVD. Thyroid is not palpable. LUNGS: Clear to percussion and to auscultation. Good air exchange. No wheezing or rhonchi. HEART: S1, S2 regular. No murmurs, gallops, or rubs. ABDOMEN: Soft and nontender. Bowel sounds are present. No organomegaly appreciated. EXTREMITIES: No clubbing or cyanosis. BRUSH CLEANER: Awake, alert, and oriented X3. Cranial nerves 2 to 7 intact. There is no fasciculation or atrophy. noted. No focal deficits observed. IMPRESSION: 1. Obstructive sleep apnea-hypopnea syndrome. Patient demonstrated great compliance with treatment, benefitting from treatment, normal respiration on CPAP. 2. Mild obesity BMI 31.9. 3. Hypertension. 4. History of hydrocephalus status post TRAFFIC MANAGER shunt. 5. History of stroke in November 2018 with residual left side weakness. 6. History of cerebral aneurysm. 7. Status post bilateral hip replacement. 8. Status post cervical fusion. 9. Status post uvulopalatopharyngoplasty and tonsillectomy. PLAN: 1. Prescription for all necessary CPAP supplies, including nasal pillow, mask, tube, filters. 2. Patient should continue to use CPAP equipment every night for the whole night. 3. Watching weight. 4. Patient does not drive. 5. Sleep hygiene with regular time in bed for 7.5 to 8 hours. Thank you very much for allowing me to participate in management of your patient. Sincerely, Jourdan Baker MD, PhD, FAASM Diplomat of [employer] [employer] [employer] [facility] [place] MMODL / IJN: [id number] /
== END ==
LOC: SLEEP 14:50
PROVIDERS: ATTEND Internal Medicine
DX: Z53.9 Procedure and treatment not carried out, unspecified reason (principal)

== ENCOUNTER 2021-01-13 14:35 | Observation (INO) | payer BC ==
[2021-01-13] MEDS ORDERED: ACETAMINOPHEN TAB 500 MG TAB PO STA (16:38)
[2021-01-13 16:57] LABS: HCT 46.5 % (39.0-53.0); HGB 15.4 gm/dL (13.0-17.5); MCH 30.1 pg (25.0-35.0); MCHC 33.1 g/dL (31.0-37.0); MCV 90.9 fL (80.0-100.0); Mean Platelet Volume 9.4; Platelet Count 184 k/uL (150-450); RBC 5.12 m/uL (4.30-5.90); RDW 13.5 % (11.5-15.5); WBC 13.7 k/uL (3.8-10.6)
[2021-01-13 17:03] LABS: Appearance,Urine Clear (Clear); Bilirubin,Urine Negative (Negative); Blood,Urine Trace (Negative); Color,Urine Yellow; Glucose,Urine (UA) Negative (Negative); Ketones,Urine Negative (Negative); Leukocyte Esterase,Urine Negative (Negative); Mucus,Urine Rare /hpf; Nitrite,Urine Negative (Negative); PH, Urine 5.5 (5.0-8.0); Protein,Urine Negative (Negative); RBC,Urine <1 /hpf (0-5); Specific Gravity,Urine 1.011 (1.001-1.035); Urobilinogen,Urine <2.0 mg/dL (<2.0); WBC,Urine 1 /hpf (0-5)
[2021-01-13 17:12] LABS: ALT 31 U/L (4-49); AST 25 U/L (17-59); African American GFR (CKD) >90 (>60 ml/min/1.73 sqM); Albumin 4.2 g/dL (3.5-5.0); Alkaline Phosphatase 91 U/L (38-126); Anion Gap 11 mmol/L; Blood Urea Nitrogen 13 mg/dL (9-20); Calcium 9.2 mg/dL (8.4-10.2); Carbon Dioxide 27 mmol/L (22-30); Chloride 101 mmol/L (98-107); Glucose 192 mg/dL (74-99); Magnesium 1.9 mg/dL (1.6-2.3); Non-African American GFR(CKD) >90 (>60 ml/min/1.73 sqM); Potassium 3.9 mmol/L (3.5-5.1); Prothrombin Time 10.6 sec (9.0-12.0); Sodium 139 mmol/L (137-145); Total Bilirubin 0.7 mg/dL (0.2-1.3); Total Protein 6.6 g/dL (6.3-8.2)
[2021-01-13 17:19] LABS: Band Neutrophils % 6 %; Basophils # (M) 0.14 k/uL (0-0.2); Eosinophils # (M) 0.14 k/uL (0-0.7); Lymphocytes # (M) 0.96 k/uL (1.0-4.8); Monocytes # (M) 0.41 k/uL (0-1.0); Neutrophils % (M) 82 %; Nucleated Red Blood Cells 0 /100 WBC (0-0); Total Cells Counted 100
[2021-01-13 17:21] LABS: Partial Thromboplastin Time 20.6 sec (22.0-30.0)
--- NOTE | 2021-01-13 18:11 | XR ---
EXAMINATION TYPE: XR chest 2V DATE OF EXAM: 01/13/2021 COMPARISON: NONE HISTORY: Weakness TECHNIQUE: 2 views FINDINGS: There is no heart failure nor confluent pneumonic infiltrate. Costophrenic angles are clear . There is cervical spine fusion surgery. There are chest leads. There is ventricular peritoneal shun t catheter on the right side. IMPRESSION: No active cardiopulmonary disease.
--- NOTE | 2021-01-13 18:12 | XR ---
EXAMINATION TYPE: XR abdomen 1V DATE OF EXAM: 01/13/2021 COMPARISON: NONE HISTORY: Shunt blockage TECHNIQUE: 2 views FINDINGS: There is ventriculoperitoneal shunt catheter in the right side. Catheter appears continuous . Catheter is be meandering in the lower abdomen with the tip over the sacrum. The bowel gas pattern is normal acute. There is no sign of intestinal obstruction or pneumoperitoneum . Fecal pattern is normal. There is bilateral hip prosthesis. Lung bases are clear. There are no path ologic calcifications over the kidneys. IMPRESSION: Nonacute abdomen.
--- NOTE | 2021-01-13 18:15 | XR ---
EXAMINATION TYPE: XR skull limited DATE OF EXAM: 01/13/2021 COMPARISON: NONE HISTORY: Shunt blockage TECHNIQUE: 2 views FINDINGS: There is right-sided ventriculoperitoneal shunt catheter. The catheter tip is in the midlin e brain. Catheter appears continuous. The calvarium is intact with normal vascular and suture marking s. Sella turcica is normal. There is some intracranial 7 mm metallic density consistent with surgery that is 1.5 cm posterior to the posterior clinoid process. IMPRESSION: Previous surgery. No acute abn ormality of the skull. Catheter appears intact.
[2021-01-13] MEDS ORDERED: CEFEPIME 1 GM in SODIUM CHLORIDE 0.9% 50 ML IVPB STA (18:22)
[2021-01-13] MEDS ORDERED: VANCOMYCIN IV PER PHARMACY 1 EACH MISC MISCELLANE PRN (18:22)
--- NOTE | 2021-01-13 18:22 | CT ---
EXAMINATION TYPE: CT brain wo con DATE OF EXAM: 01/13/2021 COMPARISON: 01/31/2020 HISTORY: Inability to walk today. CT DLP: 1202.4 mGycm Automated exposure control for dose reduction was used. Images obtained of the brain without contrast. There is right-sided ventricular peritoneal shunt catheter. The tip is in the frontal horn of the lef t lateral ventricle. There is no hydrocephalus. There is dense metal artifact in the region of the le ft proximal posterior cerebellar artery or the left posterior communicating artery. There is metal ar tifact arising from hardware from the shunt catheter on the right posterior temporal bone in the subc utaneous tissues. The calvarium is intact. There is no mass effect nor midline shift. There is no sig n of intracranial hemorrhage. IMPRESSION: Previous surgery. No hydrocephalus. No change compared to old exam.
--- NOTE | 2021-01-13 18:28 | ED ---
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 Patient has a confirmed fever on home of 102F. They've been attempting to control the fever at home with Tylenol, however without much improvement. Patient is presents emergency department today for evaluation for possible infection. Patient otherwise feels within normal limits other than generalized fatigue. Denies any urinary complaints, abdominal pain, nausea, vomiting, diarrhea. Denies any dyspnea, cough, chest pain. Denies any neck pain, hea dache, lightheadedness, blurry vision, new neurological deficits. Denies any pain over the site of his shunt behind his right ear. He has no obvious source of infection. There is no one sick at home. He is accident for COVID-19 with no known sick contacts. Patient presented today over concern for possible infection. - Related Data Home Medications Medication Instructions Recorded Confirmed Aspirin [Children's Aspirin] 81 mg PO DAILY 01/18/19 01/13/21 Atorvastatin [Lipitor] 40 mg PO HS 01/13/21 01/13/21 Citalopram Hydrobromide [CeleXA] 10 mg PO HS 01/13/21 01/13/21 Metoprolol Tartrate [Lopressor] 75 mg PO BID 01/13/21 01/13/21 Multivitamins, Thera [Multivitamin 1 tab PO HS 01/13/21 01/13/21 (formulary)] Umeclidinium Brm/Vilanterol Tr 1 puff INHALATION RT-DAILY 01/13/21 01/13/21 [Anoro Ellipta 62.5-25 Mcg INH] metFORMIN HCL ER [Glucophage XR] 500 mg PO HS 01/13/21 01/13/21 Allergies Allergy/AdvReac Type Severity Reaction Status Date / Time No Known Allergies Allergy Verified 01/13/21 18:23 Review of Systems ROS Statement: Those systems with pertinent positive or pertinent negative responses have been documented in the HPI. Review of Systems: CONST: Endorses fever EYES: Denies blurry vision ENT: Denies nasal congestion C/V: Denies Chest pain RESP: Denies shortness of breath GI: Denies abdominal pain : Denies dysuria SKIN: Denies rash. MSK: Denies joint pain. NEURO: Denies headache ROS Other: All systems not noted in ROS Statement are negative. Past Medical History Past Medical History: CVA/TIA, Hyperlipidemia, Hypertension, Musculoskeletal Disorder, Sleep Apnea/CPAP/BIPAP Additional Past Medical History / Comment(s): uses CPAP, kidney stones History of Any Multi-Drug Resistant Organisms: None Reported Past Surgical History: Back Surgery, Heart Catheterization, Joint Replacement, Orthopedic Surgery Additional Past Surgical History / Comment(s): Total R hip arthroplasty 06/14/17, total l hip arthroplasty 2 years ago, CERVICAL SURGERY WITH PLATE, URETHRA SURGERY, [facility] PROCEDURES Past Anesthesia/Blood Transfusion Reactions: No Reported Reaction Past Psychological History: No Psychological Hx Reported Smoking Status: Never smoker Past Alcohol Use History: None Reported Past Drug Use History: None Reported - Past Family History Mother Family Medical History: Cancer Additional Family Medical History / Comment(s): lung cancer Father Family Medical History: Myocardial Infarction ([place]) Additional Family Medical History / Comment(s): Father is 76 yrs old. General Exam - General Exam Comments Initial Comments: General: Appears in no acute distress. HEAD: Normal with no signs of head trauma. EYES: PERRLA, EOMI, conjunctiva normal, no discharge. ENT: Hearing grossly intact, normal oropharynx. 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 RESPIRATORY: Clear breath sounds bilaterally. No wheezes, rales, or rhonchi. C/V: Patient is mildly tachycardic with regular rhythm. S1 and S2 auscultated. No peripheral edema. Peripheral pulses are 2+ and intact. ABD: Abd is soft, nontender, nondistended EXT: Normal range of motion, no obvious deformity SKIN: No rashes or lesions observed on exposed skin. NEURO: Alert and oriented 4. Cranial nerves II-XII are intact. No new focal sensory strength deficits. Patient is post stroke and has residual left-sided weakness, proximal 4/5 which is chronic. No new neurological deficits. Patiently ablates with cane at baseline. He is no neck stiffness her midline neck tenderness to palpation.NIH scale is 0. Limitations: no limitations Course Vital Signs 01/13/21 01/13/21 01/13/21 15:07 15:55 17:00 Temperature 98.8 F Pulse Rate 102 H 105 H 98 Respiratory 20 18 18 Rate Blood Pressure 97/65 98/65 110/73 O2 Sat by Pulse 94 L 94 L 97 Oximetry 01/13/21 01/13/21 18:21 19:02 Temperature 99.7 F H Pulse Rate 90 90 Respiratory 18 18 Rate Blood Pressure 120/73 108/74 O2 Sat by Pulse 97 95 Oximetry Medical Decision Making - Medical Decision Making Based on the patient's presentation and physical exam, I'm concerned for possible infection and sepsis with an unknown etiology for his fever. Therefore we will obtain blood cultures as well as a broad workup including lactic acid, urinalysis. Shunt series will be ordered including CT head, x-ray of the skull, chest, abdomen. I low suspicion that this is his shunt causing the infection t his time, however I would like to let out as he is at increased risk. Patient and his are in agreement with this plan. IV antibiotics will be held pending laboratory studies. IV fluids will also be held physically not want to administer them that the patient does have acute hydrocephalus or shunt malfunction. He will be administered by mouth Tylenol for his fever. Patient and his are in agreement this plan. Patient's shunt series is negative and shows a normal-appearing shunt. CT head reveals prior surgery without any acute hydrocephalus. No pneumonia on chest x- ray. Laboratory studies are remarkable for mild leukocytosis of 13.7. Patient has a mildly elevated lactic acidosis of 2.2. Urinalysis is unremarkable. Troponin is negative. EKG shows no acute ischemia. Remainder of his laboratory studies and workup are unremarkable. Due to the patient's very mild lactic acid as well as mild tachycardia with febrile illness, the patient does meet criteria for mild sepsis. Therefore patient will be Mr. 2 L IV fluids as well as IV vancomycin and cefepime. There was a delay in fluids as well as antibiotics due to his pending laboratory studies as well as waiting for negative imaging to confirm no acute hydrocephalus. IV antibiotics and IV fluids were started as soon as results populated. Repeat lactate was ordered. On reevaluation, patient is still feeling the same, with relatively no acute change. I did discuss with him that I would like to admit him to the hospital for IV antibiotics and he was in agreement with the plan. COVID-19 swab was negative. I did speak with the admitting team, Dr. Geronimo who recently asked that we transfer the patient to [facility] as we do not have neurosurgery in this hospital and if the LEARNING SUPPORT RESOURCE ROOM TEACHER shunt is infected, and it needs to be addressed, and may take time to transfer him downtown there may be a delay in treatment. I spoke with the patient and his regarding this,, and they've refused transfer to [facility] assisted they do not believe that he requires transfer at this time and would like to just be admitted to this hospital for IV antibiotics. I did inform him of the risks involved, including possible delay in treatment and if the LEARNING SUPPORT RESOURCE ROOM TEACHER shunt is infected this can lead to severe infection and possibly . They expressed understanding and stated that they do not believe that the LEARNING SUPPORT RESOURCE ROOM TEACHER shunt is infected and would like him to just be admitted to this hospital for IV antibiotics. I counseled them on the risks involved with remaining here in this hospital, as stated above which includes delaying care and possible and they expressed understanding and were still requesting to remain at [facility]. I spoke with the admitting team, Dr. Geronimo, to inform her of this decision. And she accepted the patient for IV antibiotics and mild sepsis. Patient was therefore admitted to a telemetry bed in serious condition. Admitting team had the patient complete and AGAINST MEDICAL ADVICE form in terms of their refusal for transfer. - Lab Data Result diagrams: 01/13/21 16:41 01/13/21 16:41 Lab Results 01/13/21 01/13/21 01/13/21 Range/Units 16:41 16:41 16:41 WBC 13.7 H (3.8-10.6) k/uL RBC 5.12 (4.30-5.90) m/uL Hgb 15.4 (13.0-17.5) gm/dL Hct 46.5 (39.0-53.0) % MCV 90.9 (80.0-100.0) fL MCH 30.1 (25.0-35.0) pg MCHC 33.1 (31.0-37.0) g/dL RDW 13.5 (11.5-15.5) % Plt Count 184 (150-450) k/uL MPV 9.4 Neutrophils % (Manual) 82 % Band Neuts % (Manual) 6 % Lymphocytes % (Manual) 7 % Monocytes % (Manual) 3 % Eosinophils % (Manual) 1 % Basophils % (Manual) 1 % Neutrophils # (Manual) 12.00 H (1.3-7.7) k/uL Lymphocytes # (Manual) 0.96 L (1.0-4.8) k/uL Monocytes # (Manual) 0.41 (0-1.0) k/uL Eosinophils # (Manual) 0.14 (0-0.7) k/uL Basophils # (Manual) 0.14 (0-0.2) k/uL Nucleated RBCs 0 (0-0) /100 WBC Manual Slide Review Performed RBC Morphology Normal PT 10.6 (9.0-12.0) sec INR 1.0 (<1.2) APTT 20.6 L (22.0-30.0) sec Sodium (137-145) mmol/L Potassium (3.5-5.1) mmol/L Chloride (98-107) mmol/L Carbon Dioxide (22-30) mmol/L Anion Gap mmol/L BUN (9-20) mg/dL Creatinine (0.66-1.25) mg/dL Est GFR (CKD-EPI)AfAm (>60 ml/min/1.73 sqM) Est GFR (CKD-EPI)NonAf (>60 ml/min/1.73 sqM) Glucose (74-99) mg/dL Lactic Ac Sepsis Rflx Plasma Lactic Acid Denzel (0.7-2.0) mmol/L Calcium (8.4-10.2) mg/dL Magnesium (1.6-2.3) mg/dL Total Bilirubin (0.2-1.3) mg/dL AST (17-59) U/L ALT (4-49) U/L Alkaline Phosphatase (38-126) U/L Troponin I (0.000-0.034) ng/mL Total Protein (6.3-8.2) g/dL Albumin (3.5-5.0) g/dL Urine Color Yellow Urine Appearance Clear (Clear) Urine pH 5.5 (5.0-8.0) Ur Specific Epps 1.011 (1.001-1.035) Urine Protein Negative (Negative) Urine Glucose (UA) Negative (Negative) Urine Ketones Negative (Negative) Urine Blood Trace H (Negative) Urine Nitrite Negative (Negative) Urine Bilirubin Negative (Negative) Urine Urobilinogen <2.0 (<2.0) mg/dL Ur Leukocyte Esterase Negative (Negative) Urine RBC <1 (0-5) /hpf Urine WBC 1 (0-5) /hpf Urine Mucus Rare H (None) /hpf Coronavirus (PCR) (Not Detectd) 01/13/21 01/13/21 01/13/21 Range/Units 16:41 16:41 16:41 WBC (3.8-10.6) k/uL RBC (4.30-5.90) m/uL Hgb (13.0-17.5) gm/dL Hct (39.0-53.0) % MCV (80.0-100.0) fL MCH (25.0-35.0) pg MCHC (31.0-37.0) g/dL RDW (11.5-15.5) % Plt Count (150-450) k/uL MPV Neutrophils % (Manual) % Band Neuts % (Manual) % Lymphocytes % (Manual) % Monocytes % (Manual) % Eosinophils % (Manual) % Basophils % (Manual) % Neutrophils # (Manual) (1.3-7.7) k/uL Lymphocytes # (Manual) (1.0-4.8) k/uL Monocytes # (Manual) (0-1.0) k/uL Eosinophils # (Manual) (0-0.7) k/uL Basophils # (Manual) (0-0.2) k/uL Nucleated RBCs (0-0) /100 WBC Manual Slide Review RBC Morphology PT (9.0-12.0) sec INR (<1.2) APTT (22.0-30.0) sec Sodium 139 (137-145) mmol/L Potassium 3.9 (3.5-5.1) mmol/L Chloride 101 (98-107) mmol/L Carbon Dioxide 27 (22-30) mmol/L Anion Gap 11 mmol/L BUN 13 (9-20) mg/dL Creatinine 0.82 (0.66-1.25) mg/dL Est GFR (CKD-EPI)AfAm >90 (>60 ml/min/1.73 sqM) Est GFR (CKD-EPI)NonAf >90 (>60 ml/min/1.73 sqM) Glucose 192 H (74-99) mg/dL Lactic Ac Sepsis Rflx Plasma Lactic Acid Denzel 2.2 H* (0.7-2.0) mmol/L Calcium 9.2 (8.4-10.2) mg/dL Magnesium 1.9 (1.6-2.3) mg/dL Total Bilirubin 0.7 (0.2-1.3) mg/dL AST 25 (17-59) U/L ALT 31 (4-49) U/L Alkaline Phosphatase 91 (38-126) U/L Troponin I <0.012 (0.000-0.034) ng/mL Total Protein 6.6 (6.3-8.2) g/dL Albumin 4.2 (3.5-5.0) g/dL Urine Color Urine Appearance (Clear) Urine pH (5.0-8.0) Ur Specific Epps (1.001-1.035) Urine Protein (Negative) Urine Glucose (UA) (Negative) Urine Ketones (Negative) Urine Blood (Negative) Urine Nitrite (Negative) Urine Bilirubin (Negative) Urine Urobilinogen (<2.0) mg/dL Ur Leukocyte Esterase (Negative) Urine RBC (0-5) /hpf Urine WBC (0-5) /hpf Urine Mucus (None) /hpf Coronavirus (PCR) (Not Detectd) 01/13/21 01/13/21 Range/Units 17:16 18:29 WBC (3.8-10.6) k/uL RBC (4.30-5.90) m/uL Hgb (13.0-17.5) gm/dL Hct (39.0-53.0) % MCV (80.0-100.0) fL MCH (25.0-35.0) pg MCHC (31.0-37.0) g/dL RDW (11.5-15.5) % Plt Count (150-450) k/uL MPV Neutrophils % (Manual) % Band Neuts % (Manual) % Lymphocytes % (Manual) % Monocytes % (Manual) % Eosinophils % (Manual) % Basophils % (Manual) % Neutrophils # (Manual) (1.3-7.7) k/uL Lymphocytes # (Manual) (1.0-4.8) k/uL Monocytes # (Manual) (0-1.0) k/uL Eosinophils # (Manual) (0-0.7) k/uL Basophils # (Manual) (0-0.2) k/uL Nucleated RBCs (0-0) /100 WBC Manual Slide Review RBC Morphology PT (9.0-12.0) sec INR (<1.2) APTT (22.0-30.0) sec Sodium (137-145) mmol/L Potassium (3.5-5.1) mmol/L Chloride (98-107) mmol/L Carbon Dioxide (22-30) mmol/L Anion Gap mmol/L BUN (9-20) mg/dL Creatinine (0.66-1.25) mg/dL Est GFR (CKD-EPI)AfAm (>60 ml/min/1.73 sqM) Est GFR (CKD-EPI)NonAf (>60 ml/min/1.73 sqM) Glucose (74-99) mg/dL Lactic Ac Sepsis Rflx Y Plasma Lactic Acid Denzel (0.7-2.0) mmol/L Calcium (8.4-10.2) mg/dL Magnesium (1.6-2.3) mg/dL Total Bilirubin (0.2-1.3) mg/dL AST (17-59) U/L ALT (4-49) U/L Alkaline Phosphatase (38-126) U/L Troponin I (0.000-0.034) ng/mL Total Protein (6.3-8.2) g/dL Albumin (3.5-5.0) g/dL Urine Color Urine Appearance (Clear) Urine pH (5.0-8.0) Ur Specific Epps (1.001-1.035) Urine Protein (Negative) Urine Glucose (UA) (Negative) Urine Ketones (Negative) Urine Blood (Negative) Urine Nitrite (Negative) Urine Bilirubin (Negative) Urine Urobilinogen (<2.0) mg/dL Ur Leukocyte Esterase (Negative) Urine RBC (0-5) /hpf Urine WBC (0-5) /hpf Urine Mucus (None) /hpf Coronavirus (PCR) Not Detected (Not Detectd) - EKG Data -: EKG Interpreted by Me EKG Comments: 12-lead Electrocardiogram Interpretation Note EKG was reviewed and interpreted by myself. 12-lead ECG performed at 1520 is interpreted by me as revealing sinus tachycardia at a rate of 108 beats per minute. Left axis deviation. OH interval is 166 seconds, QRS duration is 82 ms, QTc is 447 ms.. There were no ST or T wave abnormalities to suggest myocardial ischemia or injury. R wave progression across the precordium was satisfactory. By my interpretation this EKG is non-diagnostic for acute ischemia. Disposition Clinical Impression: Sepsis, Fever of unknown origin, History of ventriculoperitoneal shunting Disposition: ADMITTED IP TO THIS HOSP Condition: Serious
[2021-01-13] MEDS ORDERED: VANCOMYCIN 1,500 MG in SODIUM CHLORIDE 0.9% 250 ML IVPB ONE (18:30)
[2021-01-13] MEDS ORDERED: SODIUM CHLORIDE 0.9% 1,000 ML IV ONE ×2 (18:31→18:42)
[2021-01-13] MEDS ORDERED: metFORMIN 500 MG TAB PO SCH (21:00)
--- NOTE | 2021-01-13 21:36 | P.HPIM ---
History of Present Illness H&P Date: 01/13/21 The patient is a 60-year-old male with a PMH of large CVA status post COLOR FINISHER shunt for hydrocephalus (2018) with residual left-sided weakness, hypertension, hyperlipidemia, and obstructive sleep apnea who presented to the emergency room with complaints of fever and fatigue. History supplemented by the patient's at the bedside. The patient notes that upon waking up this morning, he felt more tired than usual, and was not able to ambulate with his cane and needed to use a walker. His noted that he felt warm and she checked his temperature which was the 101.2F. She subsequently gave him Tylenol at home but the patient continued to feel fatigued at which point she decided to bring him to the emergency room. He denied any additional complaints. Denied experiencing neck pain, headaches, unilateral weakness, numbness, tingling. Also denied visual deficits, dizziness, or pain behind the ears. Denied abdominal pain, diarrhea, dysuria, nausea, vomiting. Denied cough, chest pain, shortness of breath, rhinorrhea, or sore throat. Denied sick contacts or recent travel. In the emergency room a chest x-ray was unremarkable with a brain CT showing the COLOR FINISHER shunt in place without hydrocephalus or any additional acute abnormalities. Abdominal series was unremarkable with EKG showing sinus tachycardia at 10 8 bpm with left axis deviation and poor R-wave progression. Laboratory evaluation was remarkable for WBC count of 13.7, glucose 192, lactate 2.2 and unremarkable UA. Review of systems: Pertinent positives and negatives as discussed in HPI, a complete review of systems was performed and all other systems are negative. Physical examination: General: non toxic, no distress, appears at stated age, obese Derm: no unusual rashes/lesions no unusual ecchymoses, warm, dry Head: atraumatic, normocephalic, symmetric Eyes: EOMI, no lid lag, anicteric sclera, pupils equal round reactive to light ENT: Nose and ears atraumatic, no thrush, no pharyngeal erythema Neck: No thyromegaly, no cervical lymphadenopathy, trachea midline, supple Mouth: no lip lesion, mucus membranes moist Cardiovascular: S1S2 reg, no murmur, positive posterior tibial pulse bilateral, no edema, capillary refill less than 2 seconds Lungs: CTA bilateral, no rhonchi, no rales , no accessory muscle use Abdominal: soft, nontender to palpation, no guarding, no appreciable organomegaly, normal bowel sounds Ext: no gross muscle atrophy, muscle strength 5 out of 5 in all extremities grossly except strength 4 out of 5 in left upper extremity (baseline as per patient), no contractures, Neuro: CN II-XI grossly intact, light touch intact all 4 extremities, finger to nose within normal limits Psych: Alert, oriented, appropriate affect Assessment/plan SIRS, unknown etiology -Discussed with the patient and his at the bedside in great detail the possibility of PRIMER SUPERVISOR infections requiring lumbar puncture. The refused transfer to tertiary care facility for higher level of care including Cece rosurgery evaluation. Discussed the possibility of worsening underlying pathology due to delay in care without appropriate diagnosed testing. The patient and the both verbalized understanding of the risks including possible underlying PRIMER SUPERVISOR infection and and wish to stay at [facility] on to receive empiric antibiotics overnight. -Continue with Vancomycin and Cefepime for now -F/u blood cultures -Neurochecks -IVFs Lactic acidosis -Continue with IV fluids -Monitor for resolution Chronic conditions: Hypertension, hyperlipidemia -Continue with home meds DVT prophylaxis -Heparin subq The patient is admitted with an anticipated less than 2 midnight stay for evaluation of SIRS CODE STATUS: Full Code Discussed with: Patient, Anticipated discharge date: in am Anticipated discharge place: Home Past Medical History Past Medical History: CVA/TIA, Hyperlipidemia, Hypertension, Musculoskeletal Disorder, Sleep Apnea/CPAP/BIPAP Additional Past Medical History / Comment(s): uses CPAP, kidney stones History of Any Multi-Drug Resistant Organisms: None Reported Past Surgical History: Back Surgery, Heart Catheterization, Joint Replacement, Orthopedic Surgery Additional Past Surgical History / Comment(s): Total R hip arthroplasty 7, total l hip arthroplasty 2 years ago, CERVICAL SURGERY WITH PLATE, URETHRA SURGERY, [facility] PROCEDURES Past Anesthesia/Blood Transfusion Reactions: No Reported Reaction Past Psychological History: No Psychological Hx Reported Smoking Status: Never smoker Past Alcohol Use History: None Reported Past Drug Use History: None Reported - Past Family History Mother Family Medical History: Cancer Additional Family Medical History / Comment(s): lung cancer Father Family Medical History: Myocardial Infarction ([place]) Additional Family Medical History / Comment(s): Father is 76 yrs old. Medications and Allergies Home Medications Medication Instructions Recorded Confirmed Type Aspirin [Children's Aspirin] 81 mg PO DAILY 01/18/19 01/13/21 History Atorvastatin [Lipitor] 40 mg PO HS 01/13/21 01/13/21 History Citalopram Hydrobromide [CeleXA] 10 mg PO HS 01/13/21 01/13/21 History Metoprolol Tartrate [Lopressor] 75 mg PO BID 01/13/21 01/13/21 History Multivitamins, Thera [Multivitamin 1 tab PO HS 01/13/21 01/13/21 History (formulary)] Umeclidinium Brm/Vilanterol Tr 1 puff INHALATION RT-DAILY 01/13/21 01/13/21 History [Anoro Ellipta 62.5-25 Mcg INH] metFORMIN HCL ER [Glucophage XR] 500 mg PO HS 01/13/21 01/13/21 History Allergies Allergy/AdvReac Type Severity Reaction Status Date / Time No Known Allergies Allergy Verified 01/13/21 18:23 Physical Exam Vitals: Vital Signs Temp Pulse Resp BP Pulse Ox 01/13/21 19:59 98.4 F 01/13/21 19:55 88 18 109/75 96 01/13/21 19:02 90 18 108/74 95 01/13/21 18:21 99.7 F H 90 18 120/73 97 01/13/21 17:00 98 18 110/73 97 01/13/21 15:55 105 H 18 98/65 94 L 01/13/21 15:07 98.8 F 102 H 20 97/65 94 L Intake and Output 01/13/21 01/13/21 01/13/21 06:59 14:59 22:59 Other: Weight 92.533 kg Results CBC & Chem 7: 01/13/21 16:41 01/13/21 16:41 Labs: Abnormal Lab Results - Last 24 Hours (Table) 01/13/21 01/13/21 01/13/21 Range/Units 16:41 16:41 16:41 WBC 13.7 H (3.8-10.6) k/uL Neutrophils # (Manual) 12.00 H (1.3-7.7) k/uL Lymphocytes # (Manual) 0.96 L (1.0-4.8) k/uL APTT 20.6 L (22.0-30.0) sec Glucose (74-99) mg/dL Plasma Lactic Acid Denzel (0.7-2.0) mmol/L Urine Blood Trace H (Negative) Urine Mucus Rare H (None) /hpf 01/13/21 01/13/21 Range/Units 16:41 16:41 WBC (3.8-10.6) k/uL Neutrophils # (Manual) (1.3-7.7) k/uL Lymphocytes # (Manual) (1.0-4.8) k/uL APTT (22.0-30.0) sec Glucose 192 H (74-99) mg/dL Plasma Lactic Acid Denzel 2.2 H* (0.7-2.0) mmol/L Urine Blood (Negative) Urine Mucus (None) /hpf
[2021-01-13] MEDS: ATORVASTATIN 40 MG TAB PO SCH (21:43)
[2021-01-13] MEDS: METOPROLOL TARTRATE 25 MG TAB PO SCH (21:43)
[2021-01-13] MEDS: ACETAMINOPHEN TAB 325 MG TAB PO PRN (22:49)
[2021-01-14] MEDS: HEPARIN SODIUM,PORCINE/PF 5,000 UNIT/0.5 ML SYRINGE SQ SCH ×4 (06:28→23:05)
[2021-01-14] MEDS ORDERED: VANCOMYCIN 1,500 MG in SODIUM CHLORIDE 0.9% 250 ML IVPB SCH (07:00)
[2021-01-14] MEDS ORDERED: VANCOMYCIN 1,750 MG in SODIUM CHLORIDE 0.9% 500 ML 500 ML IVPB STA (08:32)
[2021-01-14] MEDS: METOPROLOL TARTRATE 25 MG TAB PO SCH ×2 (08:42→20:15)
[2021-01-14] MEDS: ASPIRIN 81 MG PO SCH (08:43)
[2021-01-14 10:42] LABS: HCT 40.5 % (39.6-50.0); HGB 12.8 g/dL (13.0-17.0); MCH 29.3 pg (27.0-32.0); MCHC 31.6 g/dL (32.0-37.0); MCV 92.7 fL (80.0-97.0); Mean Platelet Volume 11.8 fL (9.5-12.2); Platelet Count 132 X 10*3/uL (140-440); RBC 4.37 X 10*6/uL (4.40-5.60)
[2021-01-14] MEDS: CEFEPIME 2 GM in SODIUM CHLORIDE 0.9% 100 ML IVPB SCH ×3 (11:45→20:18)
--- NOTE | 2021-01-14 14:10 | P.PN ---
Subjective Progress Note Date: 01/14/21 No new complaints at this time. Pt reports improvement overall. No further fevers. No HAs. Still feels week. Objective - Vital Signs Vital signs: Vital Signs Temp 100.9 F H 01/14/21 13:58 Pulse 91 01/14/21 13:58 Resp 20 01/14/21 13:58 BP 143/86 01/14/21 13:58 Pulse Ox 96 01/14/21 13:58 Intake & Output 01/13/21 01/14/21 01/14/21 18:59 06:59 18:59 Intake Total 400 Output Total 300 Balance 100 Weight 92.533 kg Intake: Oral 400 Output: Urine 300 - Exam Gen: awake, alert HEENT: normocephalic, atraumatic, good hearing acuity, moist mucous membranes Resp: good air exchange, breathing comfortably with no accessory muscle use CVS: good distal perfusion x 4, GI: soft, NTTP, ND : no SPT, no CVAT, tomlinson catheter not present MSK: no pitting edema, no clubbing Neuro: non-focal, moving all extremities, 5/5 motor strength in all 4 ext remities. Psych: cooperative, euthymic mood - Labs CBC & Chem 7: 01/14/21 03:52 01/13/21 16:41 Labs: Abnormal Lab Results - Last 24 Hours (Table) 01/13/21 01/13/21 01/13/21 Range/Units 16:41 16:41 16:41 WBC 13.7 H (3.8-10.6) k/uL RBC (4.40-5.60) X 10*6/uL Hgb (13.0-17.0) g/dL MCHC (32.0-37.0) g/dL Plt Count (140-440) X 10*3/uL Neutrophils # (Manual) 12.00 H (1.3-7.7) k/uL Lymphocytes # (Manual) 0.96 L (1.0-4.8) k/uL APTT 20.6 L (22.0-30.0) sec Glucose (74-99) mg/dL Plasma Lactic Acid Denzel (0.7-2.0) mmol/L Urine Blood Trace H (Negative) Urine Mucus Rare H (None) /hpf 01/13/21 01/13/2101/14/21 Range/Units 16:41 16:41 03:52 WBC (3.8-10.6) k/uL RBC 4.37 L (4.40-5.60) X 10*6/uL Hgb 12.8 L (13.0-17.0) g/dL MCHC 31.6 L (32.0-37.0) g/dL Plt Count 132 L (140-440) X 10*3/uL Neutrophils # (Manual) (1.3-7.7) k/uL Lymphocytes # (Manual) (1.0-4.8) k/uL APTT (22.0-30.0) sec Glucose 192 H (74-99) mg/dL Plasma Lactic Acid Denzel 2.2 H* (0.7-2.0) mmol/L Urine Blood (Negative) Urine Mucus (None) /hpf Assessment and Plan Assessment: SIRS, unknown etiology -Discussed with the patient and his at the bedside in great detail the possibility of HIDE CURER infections requiring lumbar puncture. The refused transfer to tertiary care facility for higher level of care including Neurosurgery evaluation. Discussed the possibility of worsening underlying pathology due to delay in care without appropriate diagnosed testing. The patient and the both verbalized understanding of the risks including poss ible underlying HIDE CURER infection and and wish to stay at [facility] to receive empiric antibiotics overnight. -Continue with Vancomycin and Cefepime for now -ID consult -F/u blood cultures -Neurochecks -IVFs Lactic acidosis -Continue with IV fluids -Monitor for resolution Chronic conditions: Hypertension, hyperlipidemia -Continue with home meds DVT prophylaxis -Heparin subq The patient is admitted with an anticipated less than 2 midnight stay for evaluation of SIRS CODE STATUS: Full Code Discussed with: Patient, Anticipated discharge date: in am Anticipated discharge place: Home
[2021-01-14] MEDS: ACETAMINOPHEN TAB 325 MG TAB PO PRN (14:20)
[2021-01-14] MEDS: IOPAMIDOL CONTRAST (ORAL USE) VIAL PO PRN ×2 (18:00→19:02)
[2021-01-14 18:32] LABS: Appearance,Urine Clear (Clear); Bilirubin,Urine Negative (Negative); Blood,Urine Small (Negative); Color,Urine Light Yellow; Glucose,Urine (UA) Negative (Negative); Ketones,Urine Negative (Negative); Leukocyte Esterase,Urine Negative (Negative); Mucus,Urine Rare /hpf; Nitrite,Urine Negative (Negative); PH, Urine 6.5 (5.0-8.0); Protein,Urine Negative (Negative); RBC,Urine 6 /hpf (0-5); Specific Gravity,Urine 1.007 (1.001-1.035); Urobilinogen,Urine <2.0 mg/dL (<2.0); WBC,Urine 2 /hpf (0-5)
[2021-01-14] MEDS ORDERED: ALBUTEROL NEBULIZED 2.5 MG/3 ML INHALATION PRN (18:39)
[2021-01-14] MEDS ORDERED: VANCOMYCIN 1,750 MG in SODIUM CHLORIDE 0.9% 500 ML 500 ML IVPB SCH (19:00)
[2021-01-14] MEDS: ATORVASTATIN 40 MG TAB PO SCH ×2 (20:15→20:18)
--- NOTE | 2021-01-14 20:26 | CT ---
EXAMINATION TYPE: CT abdomen pelvis w con DATE OF EXAM: 01/14/2021 COMPARISON: PET/CT scan 07/04/2020 HISTORY: Fever and leukocytosis. CT DLP: 1529.1 mGycm Automated exposure control for dose reduction was used. CONTRAST: Performed with IV Contrast, patient injected with 100ml mL of Isovue 300. There is oral contrast. There is some atelectasis at the lung bases. Heart size is normal. There is no pericardial effusion. Liver spleen stomach pancreas gallbladder appear normal. Bile ducts are not dilated. There is no adrenal mass. Kidneys show satisfactory contrast opacification. There is no hydronephrosi s. There is 3.7 cm cortical cyst lateral left kidney. There is no retroperitoneal adenopathy. Bladder distends smoothly. There is bilateral hip prosthesis. There is ventriculoperitoneal shunt catheter. There is small amount of fluid in the left paracolic gutter. There is no inguinal hernia. I see no pe lvic mass. There are cysts a few lymph nodes involving the sigmoid Mesentery. There are sigmoid diver ticula. Appendix appears normal. Small bowel pattern is normal. There is no evidence of a bowel obstr uction. There is no evidence of focal bone destruction. The lumbar vertebra have normal alignment. There is n arrowing of disc spaces in the lower lumbar spine. There is bilateral hip prosthesis. The bony pelvis appears intact. IMPRESSION: There is some mild atelectasis at the lung bases unchanged. There is minimal fat stranding and fluid in the left paracolic gutter with a few sigmoid diverticula. This could relate to colitis or diverticulitis and is increased compared to old exam. No drainable f luid collection. Normal appendix.
[2021-01-14] MEDS: IPRATROPIUM-ALBUTEROL 3 ML NEB INHALATION SCH (21:05)
--- NOTE | 2021-01-14 22:18 | P.CONS ---
History of Present Illness - Reason for Consult Consult date: 01/14/21 Fever of unknown origin Requesting physician: Ted Mittal - Chief Complaint Weakness and fever x 1 days - History of Present Illness Patient is a 60-year-old male with a past medical history significant for CVA with residual left-sided weakness however the patient is able to move around with help of the walker patient was brought into the ER last evening for evaluation of generalized fatigue for the last 1 to 2 days patient also have a fever of 102 degrees 100 home for the patient will be taking some Tylenol without any improvement and the patient was brought to the hospital for further evaluation of possible infection patient denies having any headache denies having any URI symptoms denies having any chest pain shortness of breath or cough patient has been nauseated but no vomiting no abdominal pain no diarrhea no urinary symptoms with the symptom the patient was evaluated by the ER physician on arrival to the ER patient did have low-grade fever of 99.7 this afternoon patient spiked a fever 100.9 F patient did not have significant tachycardia or hypoxemia patient did have a elevated white count 13.7 with a left shift yesterday however that has normalized today lactic acid was elevated 2.2 liver exams are normal kidney function was normal urine negative ervin PCR was negative blood cultures obtained which are currently pending patient did have a chest x-ray was negative for acute cardiopulmonary process abdominal was nonacute patient was started on vancomycin and cefepime did have resolution of his fever infectious disease was consulted for further management of antibiotic and concern for possible EMERY WHEEL WORKER infection Review of Systems Positive point has been mentioned in the HPI rest of the systems are negative Past Medical History Past Medical History: CVA/TIA, Hyperlipidemia, Hypertension, Musculoskeletal Disorder, Sleep Apnea/CPAP/BIPAP Additional Past Medical History / Comment(s): uses CPAP, kidney stones History of Any Multi-Drug Resistant Organisms: None Reported Past Surgical History: Back Surgery, Heart Catheterization, Joint Replacement, Orthopedic Surgery Additional Past Surgical History / Comment(s): Total R hip arthroplasty 06/14/17, total l hip arthroplasty 2 years ago, CERVICAL SURGERY WITH PLATE, URETHRA SURGERY, [facility] PROCEDURES Past Anesthesia/Blood Transfusion Reactions: No Reported Reaction Past Psychological History: No Psychological Hx Reported Smoking Status: Never smoker Past Alcohol Use History: None Reported Past Drug Use History: None Reported - Past Family History Mother Family Medical History: Cancer Additional Family Medical History / Comment(s): lung cancer Father Family Medical History: Myocardial Infarction ([place]) Additional Family Medical History / Comment(s): Father is 76 yrs old. Medications and Allergies Home Medications Medication Instructions Recorded Confirmed Type Aspirin [Children's Aspirin] 81 mg PO DAILY 01/18/19 01/13/21 History Atorvastatin [Lipitor] 40 mg PO HS 01/13/21 01/13/21 History Citalopram Hydrobromide [CeleXA] 10 mg PO HS 01/13/21 01/13/21 History Metoprolol Tartrate [Lopressor] 75 mg PO BID 01/13/21 01/13/21 History Multivitamins, Thera [Multivitamin 1 tab PO HS 01/13/21 01/13/21 History (formulary)] Umeclidinium Brm/Vilanterol Tr 1 puff INHALATION RT-DAILY 01/13/21 01/13/21 History [Anoro Ellipta 62.5-25 Mcg INH] metFORMIN HCL ER [Glucophage XR] 500 mg PO HS 01/13/21 01/13/21 History Allergies Allergy/AdvReac Type Severity Reaction Status Date / Time No Known Allergies Allergy Verified 01/13/21 18:23 Physical Exam Vitals: Vital Signs Temp Pulse Pulse Resp BP BP Pulse Ox 01/14/21 13:58 100.9 F H 91 20 143/86 96 01/14/21 07:32 98.6 F 86 20 136/75 94 L 01/14/21 06:00 99.0 F 89 16 107/60 94 L 01/13/21 22:49 99.7 F H 01/13/21 22:33 65 18 131/81 95 01/13/21 19:59 98.4 F 01/13/21 19:55 88 18 109/75 96 01/13/21 19:02 90 18 108/74 95 01/13/21 18:21 99.7 F H 90 18 120/73 97 01/13/21 17:00 98 18 110/73 97 01/13/21 15:55 105 H 18 98/65 94 L Intake and Output 01/14/21 01/14/21 01/14/21 06:59 14:59 22:59 Intake Total 400 Output Total 300 Balance 100 Intake: Oral 400 Output: Urine 300 GENERAL DESCRIPTION: Middle-aged male lying in bed, no distress. No tachypnea or accessory muscle of respiration use. HEENT: Shows Pallor , no scleral icterus. Oral mucous membrane is dry. No pharyngeal erythema or thrush NECK: Trachea central, no thyromegaly. LUNGS: Unlabored breathing. Clear to auscultation anteriorly. No wheeze or crackle. HEART: S1, S2, regular rate and rhythm. No loud murmur ABDOMEN: Soft, no tenderness , guarding or rigidity, no organomegaly EXTREMITIES: No edema of feet. SKIN: No rash, no masses palpable. NEUROLOGICAL: The patient is awake, alert, oriented x3, mood and affect normal. Results CBC & Chem 7: 01/14/21 03:52 01/13/21 16:41 Labs: Abnormal Lab Results - Last 24 Hours (Table) 01/13/21 01/13/21 01/13/21 Range/Units 16:41 16:41 16:41 WBC 13.7 H (3.8-10.6) k/uL RBC (4.40-5.60) X 10*6/uL Hgb (13.0-17.0) g/dL MCHC (32.0-37.0) g/dL Plt Count (140-440) X 10*3/uL Neutrophils # (Manual) 12.00 H (1.3-7.7) k/uL Lymphocytes # (Manual) 0.96 L (1.0-4.8) k/uL APTT 20.6 L (22.0-30.0) sec Glucose (74-99) mg/dL Plasma Lactic Acid Denzel (0.7-2.0) mmol/L Urine Blood Trace H (Negative) Urine Mucus Rare H (None) /hpf 01/13/21 01/13/21 01/14/21 Range/Units 16:41 16:41 03:52 WBC (3.8-10.6) k/uL RBC 4.37 L (4.40-5.60) X 10*6/uL Hgb 12.8 L (13.0-17.0) g/dL MCHC 31.6 L (32.0-37.0) g/dL Plt Count 132 L (140-440) X 10*3/uL Neutrophils # (Manual) (1.3-7.7) k/uL Lymphocytes # (Manual) (1.0-4.8) k/uL APTT (22.0-30.0) sec Glucose 192 H (74-99) mg/dL Plasma Lactic Acid Denzel 2.2 H* (0.7-2.0) mmol/L Urine Blood (Negative) Urine Mucus (None) /hpf Assessment and Plan Assessment: patient presented to hospital with fever of 1 to 2 days duration with weakness and do not have any localizing signs or symptoms of infection patient currently denies having any headache and the patient mentation is baseline per the at the bedside that we make EMERY WHEEL WORKER infection to be less likely but he did have risk factor of EDUCATION RESEARCH ANALYST shunt patient initial work-up including chest x-ray and UA is negative patient abdominal soft medical examination and no evidence of any cellulitis (1) Sepsis Current Visit: Yes Status: Acute Code(s): A41.9 - SEPSIS, UNSPECIFIED ORGANISM SNOMED Code(s): 63074503 Plan: 1-we will obtain a CT abdominal pelvis to make sure no evidence of any intra- abdominal source 2-we will check a CRP and procalcitonin level 3-cefepime to continue however discontinue vancomycin We will follow on clinical condition and cultures to further adjust medication if needed Thank you for this consultation we will follow the patient along with you Time with Patient: Greater than 30
[2021-01-14] MEDS: metroNIDAZOLE 500 MG TAB PO SCH (23:05)
[2021-01-15 01:44] VITALS: TEMP 98.4
[2021-01-15] MEDS: CEFEPIME 2 GM in SODIUM CHLORIDE 0.9% 100 ML IVPB SCH ×2 (03:33→11:37)
[2021-01-15 06:49] LABS: African American GFR (CKD) >90 (>60 ml/min/1.73 sqM); LDH 533 U/L (313-618); Non-African American GFR(CKD) >90 (>60 ml/min/1.73 sqM)
[2021-01-15 07:25] LABS: C Reactive Protein 13.4 mg/dL (<1.0)
[2021-01-15] MEDS: HEPARIN SODIUM,PORCINE/PF 5,000 UNIT/0.5 ML SYRINGE SQ SCH ×2 (07:46→15:29)
[2021-01-15] MEDS: ASPIRIN 81 MG PO SCH (07:46)
[2021-01-15] MEDS: metroNIDAZOLE 500 MG TAB PO SCH ×2 (07:46→15:30)
[2021-01-15] MEDS: METOPROLOL TARTRATE 25 MG TAB PO SCH (08:31)
[2021-01-15] MEDS: IPRATROPIUM-ALBUTEROL 3 ML NEB INHALATION SCH ×2 (09:04→12:03)
[2021-01-15 14:23] VITALS: BP 125/81; PULSE 77; RESP 18
--- NOTE | 2021-01-15 15:20 | P.DS ---
Providers Date of admission: 01/13/21 19:07 Expected date of discharge: 01/15/21 Attending physician: Laura Geronimo DO Consults: 01/14/21 09:59 Consult Physician Routine Consulting Provider: Myron Adkins Consult Reason/Comments: r/o TREASURY ASSISTANT infection Do you want consulting provider notified?: Yes Primary care physician: [facility] Course: Sigmoid Colitis Patient was admitted with fevers and increasing weakness. He was started on vancomycin and cefepime, however, CXR, UA, BCx could not identify a source. ID consult was requested and they recommended CT A/P. This demonstrated evidence of colitis thought to be the source of fevers. Patient was discharged with 10 day prescription for cefuroxime and flagyl. Pt to f/u with PCP. He will have home care services at home. Chronic conditions: Hypertension, hyperlipidemia -No home medication changes Assessment: Gen: awake, alert HEENT: normocephalic, atraumatic, good hearing acuity, moist mucous membranes Resp: good air exchange, breathing comfortably with no accessory muscle use CVS: good distal perfusion x 4, GI: soft, NTTP, ND : no SPT, no CVAT, tomlinson catheter not present MSK: no pitting edema, no clubbing Neuro: non-focal, moving all extremities, 5/5 motor strength in all 4 extremities. Psych: cooperative, euthymic mood Patient Condition at Discharge: Good Plan - Discharge Summary Discharge Rx Participant: No New Discharge Prescriptions: New Cefuroxime Axetil [Ceftin] 500 mg PO BID 10 Days #20 tab metroNIDAZOLE [Flagyl] 500 mg PO TID #30 tab Continue Aspirin [Children's Aspirin] 81 mg PO DAILY Multivitamins, Thera [Multivitamin (formulary)] 1 tab PO HS metFORMIN HCL ER [Glucophage XR] 500 mg PO HS Citalopram Hydrobromide [CeleXA] 10 mg PO HS Umeclidinium Brm/Vilanterol Tr [Anoro Ellipta 62.5-25 Mcg INH] 1 puff INHALATION RT-DAILY Atorvastatin [Lipitor] 40 mg PO HS Metoprolol Tartrate [Lopressor] 75 mg PO BID Discharge Medication List Aspirin [Children's Aspirin] 81 mg PO DAILY 01/18/19 [History] Atorvastatin [Lipitor] 40 mg PO HS 01/13/21 [History] Citalopram Hydrobromide [CeleXA] 10 mg PO HS 01/13/21 [History] Metoprolol Tartrate [Lopressor] 75 mg PO BID 01/13/21 [History] Multivitamins, Thera [Multivitamin (formulary)] 1 tab PO HS 01/13/21 [History] Umeclidinium Brm/Vilanterol Tr [Anoro Ellipta 62.5-25 Mcg INH] 1 puff INHALATION RT-DAILY 01/13/21 [History] metFORMIN HCL ER [Glucophage XR] 500 mg PO HS 01/13/21 [History] Cefuroxime Axetil [Ceftin] 500 mg PO BID 10 Days #20 tab 01/15/21 [Rx] metroNIDAZOLE [Flagyl] 500 mg PO TID #30 tab 01/15/21 [Rx] Follow up Appointment(s)/Referral(s): Vega Luque MD [Primary Care Provider] - 01/29/21 10:40 am Patient Instructions/Handouts: Diverticulitis (DC) Discharge Disposition: HOME SELF-CARE
--- NOTE | 2021-01-15 16:23 | PN ---
PROGRESS NOTE DATE OF SERVICE: 01/15/2021 REASON FOR FOLLOWUP: Fever, likely diverticulitis. INTERVAL HISTORY: Patient is afebrile. The patient is feeling better. Breathing comfortably. Denies having any chest pain. No shortness of breath or cough. No abdominal pain or diarrhea. PHYSICAL EXAMINATION: Blood pressure 119/70 with a pulse of 80, temperature is 98.4. He is 95% on room air. General description is a middle-aged male lying in bed in no distress. Respiratory: Unlabored breathing, clear to auscultation anteriorly. Heart S1, S2. Regular rate and rhythm. Abdomen: Soft, no tenderness. LABS: Blood culture has been negative. CT has been suggestive of possible diverticulitis. DIAGNOSTIC IMPRESSION AND PLAN: Patient admitted to the hospital with fever, concern likely for diverticulitis in this patient who did have a history of diverticulitis. The patient has clinically responded to the cefepime. Will finish therapy with oral Ceftin, Flagyl, and close outpatient followup. MMODL / IJN: [id number] /
== END 2021-01-15 15:58 | disposition home or self-care (01) ==
LOC: EC 14:35 → 4SSUR 19:07
PROVIDERS: ADMIT Internal Medicine; ATTEND Internal Medicine
DX: K52.9 Noninfective gastroenteritis and colitis, unspecified (principal); E87.2 Acidosis; E78.5 Hyperlipidemia, unspecified; I10 Essential (primary) hypertension; I69.354 Hemiplegia and hemiparesis following cerebral infarction affecting left non-dominant side; Z79.82 Long term (current) use of aspirin; Z20.822 Contact with and (suspected) exposure to COVID-19; Z79.84 Long term (current) use of oral hypoglycemic drugs; Z79.899 Other long term (current) drug therapy; Z80.1 Family history of malignant neoplasm of trachea, bronchus and lung; Z82.49 Family history of ischemic heart disease and other diseases of the circulatory system; Z87.442 Personal history of urinary calculi; Z96.643 Presence of artificial hip joint, bilateral; Z98.2 Presence of cerebrospinal fluid drainage device
CPT/HCPCS: 99285; 96366 ×3; 96372 ×3; 96365; 96367; 36415; 94640; 93005; 85379; 80053; 82565; 83605; 83615; 83735; 84484; 85025; 85027; 85610; 85730; 86140; 81001 ×2; 87040; 84145; 87635; 70250; 71046; 74018; 70450; 74177; G0378 ×3; J3370 ×2; J0692 ×3; Q9967; J1644 ×2

== ENCOUNTER → 2021-01-20 | Outpatient (CLI) | payer BC ==
[2021-01-20 11:37] LABS: HCT 44.5 % (39.6-50.0); HGB 14.3 g/dL (13.0-17.0); MCH 29.2 pg (27.0-32.0); MCHC 32.1 g/dL (32.0-37.0); MCV 90.8 fL (80.0-97.0); Mean Platelet Volume 10.7 fL (9.5-12.2); Platelet Count 226 X 10*3/uL (140-440); RDW 13.6 % (11.5-14.5); WBC 7.39 X 10*3/uL (4.50-10.00)
[2021-01-20 13:38] LABS: Hemoglobin A1C 7.2 % (4.0-6.0)
[2021-01-20 17:49] LABS: Albumin 4.2 g/dL (3.80-4.90); Albumin/Globulin Ratio 1.83 (1.60-3.17); Anion Gap 11.2 mmol/L (4.00-12.00); BUN/Creat Ratio 21.25 Ratio (12.00-20.00); Calcium 8.9 mg/dL (8.7-10.3); Carbon Dioxide 26.8 mmol/L (21.6-31.8); Chol/HDL Ratio 4.62; Globulin 2.3 g/dL (1.6-3.3); LDL Cholesterol,Calculated 40.2 mg/dL (0.0-131.0); Non-African American GFR(CKD) 95.7 (60.0-200.0); Total Bilirubin 0.6 mg/dL (0.3-1.2); Total Protein 6.5 g/dL (6.2-8.2); VLDL Calculation 35.8 mg/dL (5.00-40.00)
[2021-01-20 17:51] LABS: Prostate Specific Antigen 1.4 ng/mL (0.0-4.5)
[2021-01-20 19:26] LABS: Urine Creatinine 261.1 mg/dL
== END | disposition home or self-care (01) ==
LOC: LABWHC1 07:50
PROVIDERS: ATTEND Family Medicine
DX: Z00.01 Encounter for general adult medical examination with abnormal findings (principal); E11.9 Type 2 diabetes mellitus without complications
CPT/HCPCS: 36415; 80053; 80061; 82043; 82570; 83036; 84153; 84443; 85027

== ENCOUNTER → 2021-01-22 | Outpatient (CLI) | payer BC ==
[2021-01-22 17:37] LABS: African American GFR (CKD) >90 (>60 ml/min/1.73 sqM); Blood Urea Nitrogen 15 mg/dL (9-20); Non-African American GFR(CKD) >90 (>60 ml/min/1.73 sqM)
--- NOTE | 2021-01-23 09:39 | CT ---
EXAMINATION TYPE: CT chest w con DATE OF EXAM: 01/22/2021 COMPARISON: 06/18/2020, 07/28/2019, 11/24/2018 HISTORY: 60-year-old male R91.1, Pulmonary lung nodule. TECHNIQUE: Contiguous axial scanning of the chest after the administration of 100 mL of Isovue 300. Coronal/sagittal reconstructions performed. CT DLP: 395.50mGycm. Automatic exposure control utilized for a dose reduction. FINDINGS: Heart normal size without pericardial effusion. Borderline ectasia ascending aorta 3.5 cm. Conventional arch vessel branching anatomy. No thoracic lymphadenopathy by CT size criteria. Right-sided CABINET WORKER shunt catheter. Mild centrilobular emphysema. The 9 mm elongated nodular density at the right midlung is less pronounced from 06/18/2020 and simila r compared to 11/24/2018, axial image 28. Tiny groundglass focus periphery of the left upper lobe, axial image 15, coronal image 61, not seen p reviously. Prominent patchy dependent atelectasis posteriorly. No consolidation or pleural effusion. Moderate stool burden in the visualized upper abdomen with scattered diverticular change. 3.8 cm part ially visualized cyst left kidney. Bones: ACF hardware. Some DISH changes in the lower thoracic spine. IMPRESSION: 1. COPD with mild emphysema. 2. An elongated 9 mm right midlung pulmonary nodule is slightly less pronounced from prior exam and s imilar compared to 11/24/2018. Given patient's increased risk for development of lung cancer, consider an additional annual surveillance scan. 3. A tiny groundglass focus in the left upper lobe is new and could represent a nonspecific small inf ectious/inflammatory focus.
== END | disposition home or self-care (01) ==
LOC: RADCTMAIN 16:54
PROVIDERS: ATTEND Internal Medicine Critical Care Medicine
DX: J43.9 Emphysema, unspecified (principal); R91.1 Solitary pulmonary nodule
CPT/HCPCS: 82565; 84520; 71260; 36415; Q9967

== ENCOUNTER → 2021-07-21 | Outpatient (CLI) | payer BC ==
[2021-07-21 15:08] LABS: ALT 23 U/L (10-49); AST 15 U/L (14-35); African American GFR (CKD) 110.2 (60.0-200.0); Albumin 4.3 g/dL (3.8-4.9); Albumin/Globulin Ratio 1.87 (1.60-3.17); Alkaline Phosphatase 82 U/L (41-126); BUN/Creat Ratio 17.38 Ratio (12.00-20.00); Blood Urea Nitrogen 13.9 mg/dL (9.0-27.0); Carbon Dioxide 26.7 mmol/L (20.0-27.5); Chloride 106 mmol/L (96-109); Chol/HDL Ratio 3.18 Ratio; Globulin 2.3 g/dL (1.6-3.3); Glucose 119 mg/dL (70-110); Non-African American GFR(CKD) 95.1 (60.0-200.0); Potassium 4.2 mmol/L (3.5-5.5); Sodium 145 mmol/L (135-145); Total Protein 6.6 g/dL (6.2-8.2)
== END | disposition home or self-care (01) ==
LOC: LABWHC1 08:06
PROVIDERS: ATTEND Family Medicine
DX: E11.9 Type 2 diabetes mellitus without complications (principal)
CPT/HCPCS: 36415; 80053; 80061; 83036

== ENCOUNTER → 2021-07-29 | Outpatient (CLI) | payer BC ==
--- NOTE | 2021-07-29 12:41 | SFUN ---
SLEEP CENTER FOLLOW UP NOTE DATE OF SERVICE: 07/29/2021 This 61-year-old gentleman has been followed in Sleep Center for treatment of obstructive sleep apnea-hypopnea syndrome. The patient's previous visit was when I saw him in the middle of 2020. Reading from his machine showed apnea-hypopnea index 4.5, which was in normal range. At the present time the patient continues to use his CPAP equipment every night. No complaints about snoring. [place] Sleepiness Scale is 6. I checked his CPAP unit. Pressure is 10 cm of water, usage 28/30 nights, and 26/30 nights for more than 4 hours, average 8.3 hours per night. Leak is 25 L/minute, which is average. Apnea-hypopnea index increased to 17.3 and does include 6.0 central apneas and everything else related to obstructive apneas. MEDICATIONS: 1. Metoprolol 75 mg twice a day. 2. Aspirin 81 mg once a day. 3. Anoro Ellipta inhaler. 4. Citalopram 10 mg once a day. 5. Metformin 500 mg. PHYSICAL EXAMINATION: GENERAL: Pleasant patient in no distress. VITAL SIGNS: BP 131/86, HR 71, RR 18, weight 194.8 pounds, height 5 feet 6 inches, temperature 97.6, oxygen saturation at room air 95%. HEENT: PERRLA, EOMI, evaluation of oropharynx showed tongue protrudes midline. Moderately low position of soft palate. NECK: Supple, no JVD. Thyroid is not palpable. LUNGS: Clear to percussion and to auscultation. Good air exchange. No wheezing or rhonchi. HEART: S1, S2 regular. No murmurs, gallops, or rubs. ABDOMEN: Soft and nontender. Bowel sounds are present. No organomegaly appreciated. EXTREMITIES: No clubbing or cyanosis. NEWS AGENT: Slight changes of the speech. Slight weakness on the left side. Awake, alert, oriented x3. There is no fasciculation noted. IMPRESSION: 1. Reading from CPAP unit indicates increased apnea-hypopnea index to 17.3, which includes central apneas index 6.0 and otherwise obstructive events. The patient demonstrated great compliance with treatment. During his previous visit 6 months ago, apnea-hypopnea index was 4.5. 2. Hypertension. 3. History of hydrocephalus, status post BUSHWALKING GUIDE shunt. 4. History of stroke in November 2018 with some residual left-sided weakness. 5. History of cerebral aneurysm. 6. Status post bilateral hip replacement. 7. Status post cervical fusion. 8. Status post uvulopalatopharyngoplasty and tonsillectomy. PLAN: 1. I changed regimen in CPAP unit to automatic with minimal pressure 5 and maximum 13. 2. Patient will continue to use PAP equipment every night for the whole night. 3. Sleep hygiene with regular time in bed for at least 7-1/2 to 8 hours. 4. Precautions related to driving. No driving if feeling sleepiness. 5. I will maintain all necessary prescription for PAP supplies including mask, tube, filters. 6. Watching weight. 7. Follow-up visit in 6 months or earlier if patient has any problems. Thank you very much for allowing me to participate in the management of your patient. Sincerely, Jourdan Baker MD, PhD, FAASM Diplomat of [place] [employer] Sleep Medicine Board of [place] [employer] [facility] [place] MMODL / SHELBIN: [id number] /
== END | disposition home or self-care (01) ==
LOC: SLEEP 11:17
PROVIDERS: ATTEND Internal Medicine
DX: G47.33 Obstructive sleep apnea (adult) (pediatric) (principal); I10 Essential (primary) hypertension; Z86.69 Personal history of other diseases of the nervous system and sense organs; Z96.643 Presence of artificial hip joint, bilateral; Z90.49 Acquired absence of other specified parts of digestive tract

== ENCOUNTER → 2022-01-28 | Outpatient (CLI) | payer MEDICARE ==
[2022-01-28 10:44] LABS: ALT 20 U/L (10-49); AST 18 U/L (14-35); African American GFR (CKD) 110.2 (60.0-200.0); Albumin 4.2 g/dL (3.8-4.9); Albumin/Globulin Ratio 1.68 (1.60-3.17); Alkaline Phosphatase 85 U/L (41-126); BUN/Creat Ratio 16.13 Ratio (12.00-20.00); Blood Urea Nitrogen 12.9 mg/dL (9.0-27.0); Carbon Dioxide 28.1 mmol/L (20.0-27.5); Chloride 105 mmol/L (96-109); Chol/HDL Ratio 3.66 Ratio; Globulin 2.5 g/dL (1.6-3.3); Glucose 147 mg/dL (70-110); LDL Cholesterol,Calculated 47.4 mg/dL (0.0-131.0); Non-African American GFR(CKD) 95.1 (60.0-200.0); Potassium 4.1 mmol/L (3.5-5.5); Sodium 143 mmol/L (135-145); Total Protein 6.7 g/dL (6.2-8.2)
== END | disposition home or self-care (01) ==
LOC: LABWHC1 07:37
PROVIDERS: ATTEND Family Medicine
DX: E11.9 Type 2 diabetes mellitus without complications (principal)
CPT/HCPCS: 36415; 80053; 80061; 83036; 84153

== ENCOUNTER 2022-03-09 09:30 | Emergency (ER) | payer MEDICARE ==
[2022-03-09 09:45] VITALS: TEMP 99.2
[2022-03-09] MEDS ORDERED: ACETAMINOPHEN TAB 500 MG TAB PO STA (11:37)
[2022-03-09] MEDS ORDERED: SODIUM CHLORIDE 0.9% 1,000 ML IV STA (11:37)
[2022-03-09 12:03] LABS: Basophils # (A) 0.1 k/uL (0-0.2); Basophils % (A) 1 %; Eosinophils % (A) 1 %; HCT 43.2 % (39.0-53.0); HGB 14.1 gm/dL (13.0-17.5); Lymphocytes # (A) 0.9 k/uL (1.0-4.8); Lymphocytes % (A) 15 %; MCH 29.6 pg (25.0-35.0); MCHC 32.7 g/dL (31.0-37.0); MCV 90.3 fL (80.0-100.0); Mean Platelet Volume 8.5; Monocytes # (A) 0.5 k/uL (0-1.0); Monocytes % (A) 8 %; Neutrophils # (A) 4.2 k/uL (1.3-7.7); Neutrophils % (A) 72 %; Platelet Count 130 k/uL (150-450); RBC 4.78 m/uL (4.30-5.90); RDW 13.2 % (11.5-15.5); WBC 5.8 k/uL (3.8-10.6)
[2022-03-09 12:12] LABS: Partial Thromboplastin Time 22.7 sec (22.0-30.0)
[2022-03-09 12:14] LABS: ALT 40 U/L (4-49); AST 30 U/L (17-59); African American GFR (CKD) >90 (>60 ml/min/1.73 sqM); Albumin 3.8 g/dL (3.5-5.0); Alkaline Phosphatase 76 U/L (38-126); Anion Gap 11 mmol/L; Blood Urea Nitrogen 10 mg/dL (9-20); Calcium 8.3 mg/dL (8.4-10.2); Carbon Dioxide 27 mmol/L (22-30); Chloride 99 mmol/L (98-107); Glucose 120 mg/dL (74-99); Magnesium 1.6 mg/dL (1.6-2.3); Non-African American GFR(CKD) >90 (>60 ml/min/1.73 sqM); Potassium 3.9 mmol/L (3.5-5.1); Sodium 137 mmol/L (137-145); Total Bilirubin 1.2 mg/dL (0.2-1.3); Total Protein 6.1 g/dL (6.3-8.2)
[2022-03-09 12:21] LABS: Appearance,Urine Clear (Clear); Bilirubin,Urine Negative (Negative); Blood,Urine Trace (Negative); Color,Urine Light Yellow; Glucose,Urine (UA) Negative (Negative); Ketones,Urine Negative (Negative); Leukocyte Esterase,Urine Negative (Negative); Nitrite,Urine Negative (Negative); Protein,Urine Negative (Negative); RBC,Urine 1 /hpf (0-5); Specific Gravity,Urine 1.004 (1.001-1.035); Urobilinogen,Urine <2.0 mg/dL (<2.0)
--- NOTE | 2022-03-09 12:34 | XR ---
EXAMINATION TYPE: XR chest 2V DATE OF EXAM: 03/09/2022 COMPARISON: Chest x-ray 01/13/2021 HISTORY: Weakness, cerebrovascular accident history TECHNIQUE: Frontal and lateral views of the chest are obtained. FINDINGS: Lung volumes are low. There is no focal air space opacity, pleural effusion, or pneumothora x seen. The cardiac silhouette size is within normal limits. Probable ventriculoperitoneal shunt tub ing present along the right neck and chest, upper abdomen. There are overlying leads, patient shows p ostop change in the lower cervical spine. The osseous structures are intact, there is thoracic spond ylosis. IMPRESSION: No acute cardiopulmonary process.
--- NOTE | 2022-03-09 12:44 | CT ---
EXAMINATION TYPE: CT abdomen pelvis w con CT DLP: 1376.2 mGycm, Automated exposure control for dose reduction was used. DATE OF EXAM: 03/09/2022 12:37 PM COMPARISON: CT abdomen pelvis most recent from 01/14/2021. CLINICAL INDICATION:Male, 61 years old with history of fever, hx diverticulosis; weakness, fever TECHNIQUE: Standard CT of the abdomen and pelvis following the administration of 100 cc of Isovue 3 00 IV contrast material. Coronal and sagittal reformats were performed. FINDINGS: LOWER CHEST: Posterior dependent subsegmental atelectasis is noted. ABDOMEN LIVER: Unremarkable GALLBLADDER AND BILE DUCTS: Unremarkable. PANCREAS: Unremarkable. SPLEEN: Unremarkable. ADRENAL GLANDS: Unremarkable. KIDNEYS AND URETERS: No evidence of hydronephrosis or renal calculus. The kidneys enhance symmetrical ly. Bilateral renal cysts with largest on the left measuring up to 3.8 cm. PELVIS BLADDER: Limited evaluation due to streak artifact from hip prosthesis. No gross abnormality. REPRODUCTIVE: Not visualized due to streak artifact from hip prosthesis. ABDOMEN & PELVIS STOMACH AND BOWEL: Stomach and duodenum are unremarkable. The appendix is within normal limits. There is circumferential wall thickening with subtle fat stranding and diverticulosis of the sigmoid colon . No pericolonic abscess. No evidence of bowel obstruction. PERITONEUM: No evidence of pneumoperitoneum. Trace bilateral paracolic free fluid. No organized fluid collection. VASCULATURE: Mild atherosclerotic calcifications are present throughout the abdominal aorta and its b ranches. No evidence of aortic aneurysm. MUSCULOSKELETAL: No acute osseous abnormalities. Bilateral hip deposit which creates streak artifact limiting evaluation of the pelvis. LYMPH NODES: No gross evidence for lymphadenopathy. SOFT TISSUE/ABDOMINAL WALL: Anterior abdominal wall APPAREL FASHION DESIGNER shunt catheter which terminates in the right a nterior lower quadrant. No organized fluid collection is tip. IMPRESSION: Findings of wall thickening with fat stranding and diverticula involving the sigmoid colon suggestive of uncomplicated diverticulitis. Consider follow-up colonoscopy after treatment if not recently perf ormed.
[2022-03-09] MEDS ORDERED: metroNIDAZOLE 500 MG TAB PO STA (13:34)
[2022-03-09] MEDS ORDERED: cefTRIAXone IN SWFI 1,000 MG/10 ML SYRINGE IVP STA (13:35)
--- NOTE | 2022-03-09 13:39 | ED ---
Weakness HPI - General Chief complaint: Weakness Stated complaint: weakness, fever Time Seen by Provider: 03/09/22 09:45 Source: patient, family Mode of arrival: EMS Limitations: no limitations - History of Present Illness Initial comments: 61-year-old male with past medical history of CVA with right-sided weakness, hypertension, hyperlipidemia presents to the emergency department for increasing weakness. is at bedside and provides majority of history. States that he is normally able to inflate with a cane. He has been weak for the past 2 days. Last night the patient did spike a fever. She gave him a dose of Tylenol last night. Noted that he had some foul-smelling urine. Patient has no complaints however concern for infection. Patient had similar episode last year. He did not have pain but was found to have diverticulitis and required hospitalization. Patient denies any headaches or visual changes. No chest pain, shortness of breath, cough. No sick contacts similar symptoms. Denies any nausea or vomiting. Does admit to increased frequency of urination. No changes in his bowel habits. Patient does have a shunt. No alleviating, precipitating or modifying factors - Related Data Home Medications Medication Instructions Recorded Confirmed Aspirin [Children's Aspirin] 81 mg PO DAILY 01/18/19 03/09/22 Atorvastatin [Lipitor] 40 mg PO HS 01/13/21 03/09/22 Metoprolol Tartrate [Lopressor] 75 mg PO BID 01/13/21 03/09/22 Umeclidinium Brm/Vilanterol Tr 1 puff INHALATION RT-DAILY 01/13/21 03/09/22 [Anoro Ellipta 62.5-25 Mcg INH] metFORMIN HCL ER [Glucophage XR] 500 mg PO HS 01/13/21 03/09/22 Citalopram Hydrobromide 20 mg PO HS 03/09/22 03/09/22 [Citalopram HBr] Previous Rx's Medication Instructions Recorded Amoxic-Pot Clav 875-125Mg 1 tab PO Q12HR 1 Days #20 tab 03/09/22 [Augmentin 875-125] Allergies Allergy/AdvReac Type Severity Reaction Status Date / Time No Known Allergies Allergy Verified 03/09/22 12:31 Review of Systems ROS Statement: Those systems with pertinent positive or pertinent negative responses have been documented in the HPI. ROS Other: All systems not noted in ROS Statement are negative. Past Medical History Past Medical History: CVA/TIA, Hyperlipidemia, Hypertension, Musculoskeletal Disorder, Sleep Apnea/CPAP/BIPAP Additional Past Medical History / Comment(s): uses CPAP, kidney stones History of Any Multi-Drug Resistant Organisms: None Reported Past Surgical History: Back Surgery, Heart Catheterization, Joint Replacement, Orthopedic Surgery Additional Past Surgical History / Comment(s): Total R hip arthroplasty 06/14/17, total l hip arthroplasty 2 years ago, CERVICAL SURGERY WITH PLATE, URETHRA SURGERY, [facility] PROCEDURES Past Anesthesia/Blood Transfusion Reactions: No Reported Reaction Additional Past Anesthesia/Blood Transfusion Reaction / Comment(s): No history of blood transfusion. Past Psychological History: No Psychological Hx Reported Smoking Status: Never smoker Past Alcohol Use History: None Reported Past Drug Use History: None Reported - Past Family History Mother Family Medical History: Cancer Additional Family Medical History / Comment(s): lung cancer Father Family Medical History: Myocardial Infarction ([place]) Additional Family Medical History / Comment(s): Father is 76 yrs old. General Exam Limitations: no limitations General appearance: alert, in no apparent distress Head exam: Present: atraumatic, normocephalic, normal inspection Eye exam: Present: normal appearance, PERRL, EOMI. Absent: scleral icterus, conjunctival injection, periorbital swelling ENT exam: Present: normal exam, mucous membranes moist Neck exam: Present: normal inspection. Absent: tenderness, meningismus, lymphadenopathy Respiratory exam: Present: normal lung sounds bilaterally. Absent: respiratory distress, wheezes, rales, rhonchi, stridor Cardiovascular Exam: Present: regular rate, normal rhythm, normal heart sounds. Absent: systolic murmur, diastolic murmur, rubs, gallop, clicks GI/Abdominal exam: Present: soft, normal bowel sounds. Absent: distended, tenderness, guarding, rebound, rigid Extremities exam: Present: normal inspection, full ROM, normal capillary refill. Absent: tenderness, pedal edema, joint swelling, calf tenderness Back exam: Present: normal inspection Neurological exam: Present: alert, oriented X3, CN II-XII intact, other (Slight slurred speech) Psychiatric exam: Present: normal affect, normal mood Skin exam: Present: warm, dry, intact, normal color. Absent: rash Course Vital Signs 03/09/22 03/09/22 09:42 14:03 Temperature 99.2 F Pulse Rate 88 70 Respiratory 20 18 Rate Blood Pressure 150/97 129/82 O2 Sat by Pulse 96 97 Oximetry EKG Findings - EKG Comments: EKG Findings:: EKG demonstrates sinus rhythm with a rate of 82. FL interval 191. QRS 99. QTC of 420. No acute ST segment elevations or depressions Medical Decision Making - Medical Decision Making Upon arrival the patient is placed into room 20. A thorough history and physical exam was performed. He is given a dose of Tylenol for fever and a liter bolus of normal saline. Laboratory studies are conducted and reviewed. It is negative. Urinalysis negative. CT of abdomen and pelvis is performed which does demonstrate diverticulitis which is uncomplicated. Chest x-ray demonstrates no acute process. Patient was given a dose of Rocephin and Flagyl. He will be placed on Augmentin in the outpatient setting. Instructed take the medications as directed and follow-up with his doctor. The patient has any new or worsening symptoms he is to return to the ER as he may require hospitalization. Patient agreeable to the treatment plan and was discharged home in stable condition - Lab Data Result diagrams: 03/09/22 11:49 03/09/22 11:49 Lab Results 03/09/22 03/09/22 03/09/22 Range/Units 11:49 11:49 11:49 WBC 5.8 (3.8-10.6) k/uL RBC 4.78 (4.30-5.90) m/uL Hgb 14.1 (13.0-17.5) gm/dL Hct 43.2 (39.0-53.0) % MCV 90.3 (80.0-100.0) fL MCH 29.6 (25.0-35.0) pg MCHC 32.7 (31.0-37.0) g/dL RDW 13.2 (11.5-15.5) % Plt Count 130 L (150-450) k/uL MPV 8.5 Neutrophils % 72 % Lymphocytes % 15 % Monocytes % 8 % Eosinophils % 1 % Basophils % 1 % Neutrophils # 4.2 (1.3-7.7) k/uL Lymphocytes # 0.9 L (1.0-4.8) k/uL Monocytes # 0.5 (0-1.0) k/uL Eosinophils # 0.0 (0-0.7) k/uL Basophils # 0.1 (0-0.2) k/uL PT (9.0-12.0) sec INR (<1.2) APTT (22.0-30.0) sec Sodium 137 (137-145) mmol/L Potassium 3.9 (3.5-5.1) mmol/L Chloride 99 (98-107) mmol/L Carbon Dioxide 27 (22-30) mmol/L Anion Gap 11 mmol/L BUN 10 (9-20) mg/dL Creatinine 0.86 (0.66-1.25) mg/dL Est GFR (CKD-EPI)AfAm >90 (>60 ml/min/1.73 sqM) Est GFR (CKD-EPI)NonAf >90 (>60 ml/min/1.73 sqM) Glucose 120 H (74-99) mg/dL Plasma Lactic Acid Denzel (0.7-2.0) mmol/L Calcium 8.3 L (8.4-10.2) mg/dL Magnesium 1.6 (1.6-2.3) mg/dL Total Bilirubin 1.2 (0.2-1.3) mg/dL AST 30 (17-59) U/L ALT 40 (4-49) U/L Alkaline Phosphatase 76 (38-126) U/L Troponin I (0.000-0.034) ng/mL Total Protein 6.1 L (6.3-8.2) g/dL Albumin 3.8 (3.5-5.0) g/dL Urine Color Light Yellow Urine Appearance Clear (Clear) Urine pH 7.0 (5.0-8.0) Ur Specific Oriental 1.004 (1.001-1.035) Urine Protein Negative (Negative) Urine Glucose (UA) Negative (Negative) Urine Ketones Negative (Negative) Urine Blood Trace H (Negative) Urine Nitrite Negative (Negative) Urine Bilirubin Negative (Negative) Urine Urobilinogen <2.0 (<2.0) mg/dL Ur Leukocyte Esterase Negative (Negative) Urine RBC 1 (0-5) /hpf Coronavirus (PCR) (Not Detectd) 03/09/22 03/09/22 03/09/22 Range/Units 11:49 11:49 11:49 WBC (3.8-10.6) k/uL RBC (4.30-5.90) m/uL Hgb (13.0-17.5) gm/dL Hct (39.0-53.0) % MCV (80.0-100.0) fL MCH (25.0-35.0) pg MCHC (31.0-37.0) g/dL RDW (11.5-15.5) % Plt Count (150-450) k/uL MPV Neutrophils % % Lymphocytes % % Monocytes % % Eosinophils % % Basophils % % Neutrophils # (1.3-7.7) k/uL Lymphocytes # (1.0-4.8) k/uL Monocytes # (0-1.0) k/uL Eosinophils # (0-0.7) k/uL Basophils # (0-0.2) k/uL PT (9.0-12.0) sec INR (<1.2) APTT (22.0-30.0) sec Sodium (137-145) mmol/L Potassium (3.5-5.1) mmol/L Chloride (98-107) mmol/L Carbon Dioxide (22-30) mmol/L Anion Gap mmol/L BUN (9-20) mg/dL Creatinine (0.66-1.25) mg/dL Est GFR (CKD-EPI)AfAm (>60 ml/min/1.73 sqM) Est GFR (CKD-EPI)NonAf (>60 ml/min/1.73 sqM) Glucose (74-99) mg/dL Plasma Lactic Acid Denzel 1.0 (0.7-2.0) mmol/L Calcium (8.4-10.2) mg/dL Magnesium (1.6-2.3) mg/dL Total Bilirubin (0.2-1.3) mg/dL AST (17-59) U/L ALT (4-49) U/L Alkaline Phosphatase (38-126) U/L Troponin I <0.012 (0.000-0.034) ng/mL Total Protein (6.3-8.2) g/dL Albumin (3.5-5.0) g/dL Urine Color Urine Appearance (Clear) Urine pH (5.0-8.0) Ur Specific Oriental (1.001-1.035) Urine Protein (Negative) Urine Glucose (UA) (Negative) Urine Ketones (Negative) Urine Blood (Negative) Urine Nitrite (Negative) Urine Bilirubin (Negative) Urine Urobilinogen (<2.0) mg/dL Ur Leukocyte Esterase (Negative) Urine RBC (0-5) /hpf Coronavirus (PCR) Not Detected (Not Detectd) 03/09/22 Range/Units 11:49 WBC (3.8-10.6) k/uL RBC (4.30-5.90) m/uL Hgb (13.0-17.5) gm/dL Hct (39.0-53.0) % MCV (80.0-100.0) fL MCH (25.0-35.0) pg MCHC (31.0-37.0) g/dL RDW (11.5-15.5) % Plt Count (150-450) k/uL MPV Neutrophils % % Lymphocytes % % Monocytes % % Eosinophils % % Basophils % % Neutrophils # (1.3-7.7) k/uL Lymphocytes # (1.0-4.8) k/uL Monocytes # (0-1.0) k/uL Eosinophils # (0-0.7) k/uL Basophils # (0-0.2) k/uL PT 11.0 (9.0-12.0) sec INR 1.0 (<1.2) APTT 22.7 (22.0-30.0) sec Sodium (137-145) mmol/L Potassium (3.5-5.1) mmol/L Chloride (98-107) mmol/L Carbon Dioxide (22-30) mmol/L Anion Gap mmol/L BUN (9-20) mg/dL Creatinine (0.66-1.25) mg/dL Est GFR (CKD-EPI)AfAm (>60 ml/min/1.73 sqM) Est GFR (CKD-EPI)NonAf (>60 ml/min/1.73 sqM) Glucose (74-99) mg/dL Plasma Lactic Acid Denzel (0.7-2.0) mmol/L Calcium (8.4-10.2) mg/dL Magnesium (1.6-2.3) mg/dL Total Bilirubin (0.2-1.3) mg/dL AST (17-59) U/L ALT (4-49) U/L Alkaline Phosphatase (38-126) U/L Troponin I (0.000-0.034) ng/mL Total Protein (6.3-8.2) g/dL Albumin (3.5-5.0) g/dL Urine Color Urine Appearance (Clear) Urine pH (5.0-8.0) Ur Specific Oriental (1.001-1.035) Urine Protein (Negative) Urine Glucose (UA) (Negative) Urine Ketones (Negative) Urine Blood (Negative) Urine Nitrite (Negative) Urine Bilirubin (Negative) Urine Urobilinogen (<2.0) mg/dL Ur Leukocyte Esterase (Negative) Urine RBC (0-5) /hpf Coronavirus (PCR) (Not Detectd) Disposition Clinical Impression: Pyrexia, Diverticulitis Disposition: HOME SELF-CARE Condition: Stable Instructions (If sedation given, give patient instructions): Diverticulitis (ED) Additional Instructions: Continue taking Tylenol every 6-8 hours for fever. Take antibiotics as directed. Follow-up with your doctor in 2-4 days and return for any new or worsening symptoms Prescriptions: Amoxic-Pot Clav 875-125Mg [Augmentin 875-125] 1 tab PO Q12HR 1 Days #20 tab Is patient prescribed a controlled substance at d/c from ED?: No Referrals: Vega Luque MD [Primary Care Provider] - 1-2 days Time of Disposition: 13:39
[2022-03-09 14:05] VITALS: BP 129/82; PULSE 70; RESP 18
== END 2022-03-09 14:30 | disposition home or self-care (01) ==
LOC: EC 09:30
DX: K57.92 Diverticulitis of intestine, part unspecified, without perforation or abscess without bleeding (principal); R50.9 Fever, unspecified; Z86.73 Personal history of transient ischemic attack (TIA), and cerebral infarction without residual deficits; E78.5 Hyperlipidemia, unspecified; I10 Essential (primary) hypertension; Z79.82 Long term (current) use of aspirin; Z79.84 Long term (current) use of oral hypoglycemic drugs; Z79.899 Other long term (current) drug therapy; Z20.822 Contact with and (suspected) exposure to COVID-19
CPT/HCPCS: 36415; 93005; 80053; 83605; 83735; 84484; 85025; 85610; 85730; 81001; 87040; 87635; 71046; 74177; 99285; 96374; 96361 ×2; J0696; Q9967

== ENCOUNTER 2022-03-28 11:29 | Emergency (ER) | payer MEDICARE ==
[2022-03-28 11:59] VITALS: TEMP 98.2
--- NOTE | 2022-03-28 13:18 | ED ---
General Adult HPI - General Chief complaint: Fall Stated complaint: fall, arm/head injury Time Seen by Provider: 03/28/22 12:25 Source: patient, family, RN notes reviewed, old records reviewed Mode of arrival: wheelchair Limitations: no limitations - History of Present Illness Initial comments: Patient is a 61-year-old male with past medical history remarkable for prior stroke with residual left-sided weakness, shaking with a shunt in place, hypertension who presents emergency Department complaining of a mechanical fall. He was reaching to step out of his hot tub earlier today, when he missed his handhold, and fell. He did strike the left side of his head with no obvious injury but also struck the left side of his arm. He has a hematoma and an abrasion located over the lateral aspect of his left arm. Patient's [facility] emergency department because she states he may be a little more shaky than normal, but wants him to be evaluated with his significant neuro history. Patient did not lose consciousness. He is not on blood thinners. Denies any chest pain, shortness breath, abdominal pain, nausea, vomiting. Denies any new back pain. Denies any other injuries from falling except for right thumb pain with movement. His no other acute complaints at this time. Denies any changes in vision, lightheadedness. Fall occurred at approximately 10:30 this morning. I evaluated the patient at approximately 12:30 PM. - Related Data Home Medications Medication Instructions Recorded Confirmed Aspirin [Children's Aspirin] 81 mg PO DAILY 01/18/19 03/09/22 Atorvastatin [Lipitor] 40 mg PO HS 01/13/21 03/09/22 Metoprolol Tartrate [Lopressor] 75 mg PO BID 01/13/21 03/09/22 Umeclidinium Brm/Vilanterol Tr 1 puff INHALATION RT-DAILY 01/13/21 03/09/22 [Anoro Ellipta 62.5-25 Mcg INH] metFORMIN HCL ER [Glucophage XR] 500 mg PO HS 01/13/21 03/09/22 Citalopram Hydrobromide 20 mg PO HS 03/09/22 03/09/22 [Citalopram HBr] Previous Rx's Medication Instructions Recorded Amoxic-Pot Clav 875-125Mg 1 tab PO Q12HR 1 Days #20 tab 03/09/22 [Augmentin 875-125] Allergies Allergy/AdvReac Type Severity Reaction Status Date / Time No Known Allergies Allergy Verified 03/28/22 11:59 Review of Systems ROS Statement: Those systems with pertinent positive or pertinent negative responses have been documented in the HPI. Review of Systems: CONST: Denies fever EYES: Denies blurry vision ENT: Denies nasal congestion C/V: Denies Chest pain RESP: Denies shortness of breath GI: Denies abdominal pain : Denies dysuria SKIN: Denies rash. MSK: Endorses joint pain NEURO: Denies headache ROS Other: All systems not noted in ROS Statement are negative. Past Medical History Past Medical History: CVA/TIA, Hyperlipidemia, Hypertension, Musculoskeletal Disorder, Sleep Apnea/CPAP/BIPAP Additional Past Medical History / Comment(s): uses CPAP, kidney stones History of Any Multi-Drug Resistant Organisms: None Reported Past Surgical History: Back Surgery, Heart Catheterization, Joint Replacement, Orthopedic Surgery Additional Past Surgical History / Comment(s): Total R hip arthroplasty 06/14/17, total l hip arthroplasty 2 years ago, CERVICAL SURGERY WITH PLATE, URETHRA SURGERY, [facility] PROCEDURES Past Anesthesia/Blood Transfusion Reactions: No Reported Reaction Additional Past Anesthesia/Blood Transfusion Reaction / Comment(s): No history of blood transfusion. Past Psychological History: No Psychological Hx Reported Smoking Status: Never smoker Past Alcohol Use History: None Reported Past Drug Use History: None Reported - Past Family History Mother Family Medical History: Cancer Additional Family Medical History / Comment(s): lung cancer Father Family Medical History: Myocardial Infarction ([place]) Additional Family Medical History / Comment(s): Father is 76 yrs old. General Exam - General Exam Comments Initial Comments: General: Appears in no acute distress. HEAD: Normal with no signs of head trauma. No step-offs or deformities. Negative ramirez sign. Negative raccoon eyes. EYES: PERRLA, EOMI, conjunctiva normal, no discharge. Pupils are 3 mm and equal bilaterally. ENT: Hearing grossly intact, normal oropharynx. RESPIRATORY: Clear breath sounds bilaterally. No wheezes, rales, or rhonchi. C/V: Regular rate and rhythm. S1 and S2 auscultated, no edema, peripheral pulses 2+ and intact throughout ABD: Abd is soft, nontender, nondistended EXT: Normal range of motion, no obvious deformity SKIN: There is an abrasion located over the lateral aspect of his left arm. No obvious deformity of the bone. There is a developing hematoma under the site. NEURO: Alert and oriented x 4. Cranial nerves II-XII intact. No focal sensory or strength deficits. GCS of 15. NIH is 0.Patient has baseline left-sided shakiness, weakness compared to the right from prior stroke. No acute findings or changes in terms of weakness or neuro findings. Patient and patient's corroborates this.Ambulates with a cane at baseline. Limitations: no limitations Course Vital Signs 03/28/22 03/28/22 11:55 14:50 Temperature 98.2 F Pulse Rate 73 75 Respiratory 16 18 Rate Blood Pressure 152/98 148/97 O2 Sat by Pulse 96 96 Oximetry Medical Decision Making - Medical Decision Making Based on the patient's presentation and physical exam, I believe he expressed a mechanical fall at home. Currently is complaining of left forearm pain, right thumb pain. Also has a significant neuro history. Patient's would like a computed tomography scan of the brain, and I will also obtain x-rays of the left forearm and right hand. Tetanus will be updated. Vital signs are within normal limits. Declines analgesia medications at this time. Patient and patient's are in agreement with this plan. Patient does typically ambulate at baseline with the cane, and has residual left-sided weakness as well as shaking from prior stroke which is baseline for the patient. Patient's brain CT shows no acute intracranial process. Patient's hand x-ray shows no acute traumatic injury. Patient's forearm x-ray shows no acute traumatic injury. On reevaluation, patient is feeling improved. I discussed with him as well as his to results of his negative workup. I believe it is safe for him to be discharged home. Discussed proper cleaning of his abrasion on his left forearm. He was in agreement this plan. Strict return precautions were discussed. He Will follow up with his PCP. . I instructed the patient to follow up with their PCP in the next 1-3 days. I explained that the patient should return to the emergency department if they experience any worsening symptoms. Strict return precautions were discussed with the patient. The patient expressed understanding of these instructions. I answered all questions that the patient had. The patient was discharged home in good condition with their prescriptions and follow up information. Disposition Clinical Impression: Fall, Abrasion Disposition: HOME SELF-CARE Condition: Good Instructions (If sedation given, give patient instructions): Fall Prevention for Older Adults (ED), Abrasion (ED) Is patient prescribed a controlled substance at d/c from ED?: No Referrals: Vega Luque MD [Primary Care Provider] - 1-2 days Time of Disposition: 14:15
--- NOTE | 2022-03-28 13:39 | XR ---
Left forearm HISTORY: Pain following trauma. COMPARISON: None. TECHNIQUE: 2 views of the left forearm were obtained. FINDINGS: There is no fracture or focal intraosseous abnormality within the left ulna or radius. The soft tissu es are unremarkable.. IMPRESSION: No significant abnormality seen.
--- NOTE | 2022-03-28 13:41 | XR ---
Right hand. HISTORY: Pain following trauma COMPARISON: None. TECHNIQUE: 3 views of the right hand were obtained. FINDINGS: There is no fracture, dislocation, intraosseous or intra-articular abnormality. IMPRESSION: No significant abnormality seen.
--- NOTE | 2022-03-28 14:08 | CT ---
EXAMINATION TYPE: CT brain wo con DATE OF EXAM: 03/28/2022 COMPARISON: 01/13/2021 HISTORY: Fall, Head injury CT DLP: 1131.4 mGycm Automated exposure control for dose reduction was used. FINDINGS: There is been no change in the left ventricular shunt catheter that enters the right calvarium. There is metallic artifact in the prepontine cistern which was seen previously. There is a remote infarct in the left cerebellum. There is no acute bleed or mass effect. The calvarium is intact. There are mild inflammatory changes in the paranasal sinuses. The intraorbit al contents appear normal and symmetric. IMPRESSION: 1. No acute bleed or mass effect. 2. Remote infarct in the left cerebellum. 3. Postsurgical changes as described above.
[2022-03-28] MEDS ORDERED: DIPH,PERTUS(ACELL)TETVAC-LF 0.5 ML VIAL IM ONE (14:23)
[2022-03-28 15:09] VITALS: BP 148/97; PULSE 75; RESP 18
== END 2022-03-28 14:50 | disposition home or self-care (01) ==
LOC: EC 11:29
DX: S50.812A Abrasion of left forearm, initial encounter (principal); E78.5 Hyperlipidemia, unspecified; I10 Essential (primary) hypertension; Z86.73 Personal history of transient ischemic attack (TIA), and cerebral infarction without residual deficits; Z79.899 Other long term (current) drug therapy; Z96.643 Presence of artificial hip joint, bilateral; Z23 Encounter for immunization; W18.39XA Other fall on same level, initial encounter; Y92.89 Other specified places as the place of occurrence of the external cause
CPT/HCPCS: 70450; 90471; 90715; 99284

== ENCOUNTER → 2022-06-03 | Outpatient (CLI) | payer MEDICARE ==
--- NOTE | 2022-06-03 11:51 | P.PN ---
Subjective DATE: 06/03/2022 FOLLOW UP VISIT. Patient with obstructive sleep apnea hypopnea syndrome return to sleep center for follow-up visit. Information from previous visit have been reviewed. Patient is using PAP equipment every night for the whole night, getting PAP supplies in time, sleeps well. The patient does not have significant problems with the mask, PAP unit and humidification. [place] sleepiness scale is 3, which is normal. I checked information from PAP unit. PAP unit pressure 5-13, average 12.8 cm H2O. Usage is 100 % for more then 4 hours, average 7.5 hours per night. Leak is 25.8 l/m, which is in acceptable range. Apnea Hypopnea Index is increased to 11.3, which is slightly better than during previous visit. MEDICATIONS:1. Metoprolol 75 mg twice a day 2. Atorvastatin 40 mg once a day 3. Citalopram 20 mg once a day 4. Metformin extended release 500 mg once a day 5. Aspirin 81 mg once a day 6. Anoro Elipta inhaler During physical exam: GENERAL: A pleasant patient without any distress. VITAL SIGNS: BP 142/89, HR 82, RR 16 , weight 211, temperature 98.1, oxygen saturation at room air 94 % . HEENT: PERRLA, EOMI.low position of soft palate . NECK: Supple. No JVD. LUNGS: Clear to percussion and to auscultation. Good air exchange. No wheezing or rhonchi. HEART: S1, S2 regular. ABDOMEN: Soft and nontender.[] EXTREMITIES: No clubbing or cyanosis. WASTE CHOPPER: Awake, alert, and oriented x3. No focal deficit. Impressions: 1. Obstructive sleep apnea-hypopnea syndrome. Patient demonstrated great compliance with treatment, benefiting from treatment. 2. History of stroke in November 2018 with some residual left-sided weakness and changes of the speech. 3. Hypertension. 4. History of hydrocephalus, status post ACCOUNT PROCESSOR shunt. 5. History of cerebral aneurysm. 6. Status post bilateral hip replacement. 7. Status post UPPP and tonsillectomy. 8. Status post cervical fusion. Plan: 1. Continue using PAP equipment every night for the whole night. I increased pressure in his CPAP unit to the range 5-15 cm of water. 2. To change air filter at least 1-2 times per month. 3. PAP unit should stay lower then position of the head. 4. Advised patient to remove all remaining water from humidifier canister daily and make it dry after each usage. Refill canister with fresh distilled water before each usage. 5. Sleep hygiene with regular time in bed for at least 8 hours. 6. Precautions related to driving. No driving if feel any sleepiness. 7. I will maintain prescription for PAP supplies including mask, tube, filters. 8. Follow up visit in 6 months or earlier if patient has any problems. 9. Watching weight. Thank you very much for allowing me to participate in the management of your patient. Jourdan Baker MD, PhD, FAASM. Diplomat of [employer], Sleep Medicine Board by [employer] [facility] [place]
== END ==
LOC: SLEEP 10:57
PROVIDERS: ATTEND Internal Medicine
DX: G47.33 Obstructive sleep apnea (adult) (pediatric) (principal); Z99.89 Dependence on other enabling machines and devices; I10 Essential (primary) hypertension; Z86.73 Personal history of transient ischemic attack (TIA), and cerebral infarction without residual deficits; Z98.2 Presence of cerebrospinal fluid drainage device; Z86.79 Personal history of other diseases of the circulatory system; Z96.643 Presence of artificial hip joint, bilateral; Z98.890 Other specified postprocedural states; Z90.89 Acquired absence of other organs; Z87.891 Personal history of nicotine dependence
CPT/HCPCS: 99212

== ENCOUNTER 2022-06-05 10:00 | Emergency (ER) | payer MEDICARE ==
[2022-06-05 10:08] VITALS: RESP 18
[2022-06-05] MEDS ORDERED: ACETAMINOPHEN TAB 500 MG TAB PO STA (10:23)
[2022-06-05] MEDS ORDERED: IBUPROFEN 600 MG TAB PO STA (10:23)
[2022-06-05] MEDS: SODIUM CHLORIDE 0.9% 500 ML 500 ML IV SCH ×2 (10:42→11:05)
[2022-06-05 10:58] LABS: HCT 41.5 % (39.0-53.0); HGB 14.3 gm/dL (13.0-17.5); MCH 30.1 pg (25.0-35.0); MCHC 34.4 g/dL (31.0-37.0); MCV 87.6 fL (80.0-100.0); Mean Platelet Volume 9.8; Platelet Count 152 k/uL (150-450); RBC 4.73 m/uL (4.30-5.90); RDW 13.4 % (11.5-15.5); WBC 5.2 k/uL (3.8-10.6)
--- NOTE | 2022-06-05 11:00 | XR ---
EXAMINATION TYPE: XR chest 2V DATE OF EXAM: 06/05/2022 10:53 AM COMPARISON: Chest radiographs from 03/09/2022 TECHNIQUE: XR chest 2V Frontal and lateral views of the chest. CLINICAL INDICATION:Male, 62 years old with history of Fever; FINDINGS: Lungs/Pleura: There is no evidence of pleural effusion, focal consolidation, or pneumothorax. Pulmonary vascularity: Unremarkable. Heart/mediastinum: Cardiomediastinal silhouette is unremarkable. Musculoskeletal: No acute osseous pathology. Other findings: None Lines/Tubes: Ventriculoperitoneal shunt tubing noted along the needle aspect of the radiograph. IMPRESSION: No acute cardiopulmonary disease/process.
[2022-06-05 11:10] LABS: Partial Thromboplastin Time 23.3 sec (22.0-30.0); Prothrombin Time 10.8 sec (9.0-12.0)
[2022-06-05 11:12] LABS: ALT 37 U/L (4-49); AST 24 U/L (17-59); African American GFR (CKD) >90 (>60 ml/min/1.73 sqM); Albumin 3.9 g/dL (3.5-5.0); Alkaline Phosphatase 85 U/L (38-126); Anion Gap 5 mmol/L; Blood Urea Nitrogen 13 mg/dL (9-20); Calcium 8.3 mg/dL (8.4-10.2); Carbon Dioxide 29 mmol/L (22-30); Chloride 101 mmol/L (98-107); Glucose 127 mg/dL (74-99); Non-African American GFR(CKD) >90 (>60 ml/min/1.73 sqM); Sodium 135 mmol/L (137-145); Total Bilirubin 0.7 mg/dL (0.2-1.3); Total Protein 6.5 g/dL (6.3-8.2)
[2022-06-05 11:26] LABS: Lymphocytes # (M) 1.14 k/uL (1.0-4.8); Monocytes # (M) 0.52 k/uL (0-1.0); Neutrophils # (M) 3.54 k/uL (1.3-7.7); Neutrophils % (M) 68 %; Nucleated Red Blood Cells 0 /100 WBC (0-0); Total Cells Counted 100
[2022-06-05 11:27] LABS: Polychromasia Present
--- NOTE | 2022-06-05 11:49 | ED ---
General Adult HPI - General Chief complaint: Weakness Stated complaint: COVID+, weakness Time Seen by Provider: 06/05/22 10:09 Source: patient, family, RN notes reviewed, old records reviewed Mode of arrival: wheelchair - History of Present Illness Initial comments: This is a 62-year-old male presents emergency Department with generalized weakness. According to the son the patient has had a previous stroke and has some left-sided weakness but is able to get up and get around on his own. Cortisone today the patient was unable to get up on his own because he was just generally weaker. Patient had a COVID test chest CBC had a three-day history of upper respiratory congestion and occasional cough and he did test positive for COVID. Patient denies any fever chills. Patient denies any chest pain. Patient denies any abdominal pain patient denies nausea vomiting or diarrhea. Patient denies any injury or trauma. Patient denies any increased focal weakness - Related Data Home Medications Medication Instructions Recorded Confirmed Aspirin [Children's Aspirin] 81 mg PO DAILY 01/18/19 03/09/22 Atorvastatin [Lipitor] 40 mg PO HS 01/13/21 03/09/22 Metoprolol Tartrate [Lopressor] 75 mg PO BID 01/13/21 03/09/22 Umeclidinium Brm/Vilanterol Tr 1 puff INHALATION RT-DAILY 01/13/21 03/09/22 [Anoro Ellipta 62.5-25 Mcg INH] metFORMIN HCL ER [Glucophage XR] 500 mg PO HS 01/13/21 03/09/22 Citalopram Hydrobromide 20 mg PO HS 03/09/22 03/09/22 [Citalopram HBr] Previous Rx's Medication Instructions Recorded Amoxic-Pot Clav 875-125Mg 1 tab PO Q12HR 1 Days #20 tab 03/09/22 [Augmentin 875-125] Allergies Allergy/AdvReac Type Severity Reaction Status Date / Time No Known Allergies Allergy Verified 06/05/22 10:08 Review of Systems ROS Statement: Those systems with pertinent positive or pertinent negative responses have been documented in the HPI. ROS Other: All systems not noted in ROS Statement are negative. Past Medical History Past Medical History: CVA/TIA, Hyperlipidemia, Hypertension, Musculoskeletal Disorder, Sleep Apnea/CPAP/BIPAP Additional Past Medical History / Comment(s): uses CPAP, kidney stones History of Any Multi-Drug Resistant Organisms: None Reported Past Surgical History: Back Surgery, Heart Catheterization, Joint Replacement, Orthopedic Surgery Additional Past Surgical History / Comment(s): Total R hip arthroplasty 06/14/17, total l hip arthroplasty 2 years ago, CERVICAL SURGERY WITH PLATE, URETHRA SURGERY, [facility] PROCEDURES Past Anesthesia/Blood Transfusion Reactions: No Reported Reaction Additional Past Anesthesia/Blood Transfusion Reaction / Comment(s): No history of blood transfusion. Past Psychological History: No Psychological Hx Reported Smoking Status: Never smoker Past Alcohol Use History: None Reported Past Drug Use History: None Reported - Past Family History Mother Family Medical History: Cancer Additional Family Medical History / Comment(s): lung cancer Father Family Medical History: Myocardial Infarction ([place]) Additional Family Medical History / Comment(s): Father is 76 yrs old. General Exam - General Exam Comments Initial Comments: GENERAL: Patient is well-developed and well-nourished. Patient is nontoxic and well- hydrated and is in no acute distress. ENT: Neck is soft and supple. No significant lymphadenopathy is noted. Oropharynx is clear. Moist mucous membranes. Neck has full range of motion without e liciting any pain. EYES: The sclera were anicteric and conjunctiva were pink and moist. Extraocular movements were intact and pupils were equal round and reactive to light. Eyelids were unremarkable. PULMONARY: Unlabored respirations. Good breath sounds bilaterally. No audible rales rhonchi or wheezing was noted. CARDIOVASCULAR: There is a regular rate and rhythm without any murmurs gallops or rubs. ABDOMEN: Soft and nontender with normal bowel sounds. SKIN: Skin is clear with no lesions or rashes and otherwise unremarkable. NEUROLOGIC: Patient is alert and oriented x3. Cranial nerves II through XII are grossly intact. Patient has weakness of the left arm but he states that his baseline.. Normal speech, volume and content. Symmetrical smile. MUSCULOSKELETAL: Normal extremities with adequate strength and full range of motion. LYMPHATICS: No significant lymphadenopathy is noted PSYCHIATRIC: Normal psychiatric evaluation. Course Vital Signs 06/05/22 06/05/22 10:03 11:50 Temperature 101.3 F H 98.9 F Pulse Rate 94 Respiratory 18 Rate Blood Pressure 134/87 O2 Sat by Pulse 96 Oximetry Medical Decision Making - Medical Decision Making EKG was interpreted by me. EKG shows sinus rhythm at 87 bpm TX interval 173 QRSs 102 QT interval 366 QTC is 411. Patient's EKG shows no ST segment elevation or depression. Chest x-ray is interpreted by me. Chest x-ray shows no acute abnormality. One taken the room to reevaluate the patient he was doing considerably better he was able to ambulate on his own and his son felt as though he was at his baseline. - Lab Data Result diagrams: 06/05/22 10:40 06/05/22 10:40 Lab Results 06/05/22 06/05/22 06/05/22 Range/Units 10:40 10:40 10:40 WBC 5.2 (3.8-10.6) k/uL RBC 4.73 (4.30-5.90) m/uL Hgb 14.3 (13.0-17.5) gm/dL Hct 41.5 (39.0-53.0) % MCV 87.6 (80.0-100.0) fL MCH 30.1 (25.0-35.0) pg MCHC 34.4 (31.0-37.0) g/dL RDW 13.4 (11.5-15.5) % Plt Count 152 (150-450) k/uL MPV 9.8 Neutrophils % (Manual) 68 % Lymphocytes % (Manual) 22 % Monocytes % (Manual) 10 % Neutrophils # (Manual) 3.54 (1.3-7.7) k/uL Lymphocytes # (Manual) 1.14 (1.0-4.8) k/uL Monocytes # (Manual) 0.52 (0-1.0) k/uL Nucleated RBCs 0 (0-0) /100 WBC Polychromasia Present PT 10.8 (9.0-12.0) sec INR 1.0 (<1.2) APTT 23.3 (22.0-30.0) sec Sodium (137-145) mmol/L Potassium (3.5-5.1) mmol/L Chloride (98-107) mmol/L Carbon Dioxide (22-30) mmol/L Anion Gap mmol/L BUN (9-20) mg/dL Creatinine (0.66-1.25) mg/dL Est GFR (CKD-EPI)AfAm (>60 ml/min/1.73 sqM) Est GFR (CKD-EPI)NonAf (>60 ml/min/1.73 sqM) Glucose (74-99) mg/dL Plasma Lactic Acid Denzel (0.7-2.0) mmol/L Calcium (8.4-10.2) mg/dL Total Bilirubin (0.2-1.3) mg/dL AST (17-59) U/L ALT (4-49) U/L Alkaline Phosphatase (38-126) U/L Troponin I <0.012 (0.000-0.034) ng/mL Total Protein (6.3-8.2) g/dL Albumin (3.5-5.0) g/dL Urine Color Urine Appearance (Clear) Urine pH (5.0-8.0) Ur Specific [place] (1.001-1.035) Urine Protein (Negative) Urine Glucose (UA) (Negative) Urine Ketones (Negative) Urine Blood (Negative) Urine Nitrite (Negative) Urine Bilirubin (Negative) Urine Urobilinogen (<2.0) mg/dL Ur Leukocyte Esterase (Negative) Urine RBC (0-5) /hpf Urine WBC (0-5) /hpf Ur Squamous Epith Cells (0-4) /hpf Urine Mucus (None) /hpf Influenza Type A (PCR) (Not Detectd) Influenza Type B (PCR) (Not Detectd) RSV (PCR) (Not Detectd) SARS-CoV-2 (PCR) (Not Detectd) 06/05/22 06/05/22 06/05/22 Range/Units 10:40 10:40 10:40 WBC (3.8-10.6) k/uL RBC (4.30-5.90) m/uL Hgb (13.0-17.5) gm/dL Hct (39.0-53.0) % MCV (80.0-100.0) fL MCH (25.0-35.0) pg MCHC (31.0-37.0) g/dL RDW (11.5-15.5) % Plt Count (150-450) k/uL MPV Neutrophils % (Manual) % Lymphocytes % (Manual) % Monocytes % (Manual) % Neutrophils # (Manual) (1.3-7.7) k/uL Lymphocytes # (Manual) (1.0-4.8) k/uL Monocytes # (Manual) (0-1.0) k/uL Nucleated RBCs (0-0) /100 WBC Polychromasia PT (9.0-12.0) sec INR (<1.2) APTT (22.0-30.0) sec Sodium 135 L (137-145) mmol/L Potassium 4.0 (3.5-5.1) mmol/L Chloride 101 (98-107) mmol/L Carbon Dioxide 29 (22-30) mmol/L Anion Gap 5 mmol/L BUN 13 (9-20) mg/dL Creatinine 0.80 (0.66-1.25) mg/dL Est GFR (CKD-EPI)AfAm >90 (>60 ml/min/1.73 sqM) Est GFR (CKD-EPI)NonAf >90 (>60 ml/min/1.73 sqM) Glucose 127 H (74-99) mg/dL Plasma Lactic Acid Denzel 1.2 (0.7-2.0) mmol/L Calcium 8.3 L (8.4-10.2) mg/dL Total Bilirubin 0.7 (0.2-1.3) mg/dL AST 24 (17-59) U/L ALT 37 (4-49) U/L Alkaline Phosphatase 85 (38-126) U/L Troponin I (0.000-0.034) ng/mL Total Protein 6.5 (6.3-8.2) g/dL Albumin 3.9 (3.5-5.0) g/dL Urine Color Yellow Urine Appearance Clear (Clear) Urine pH 7.0 (5.0-8.0) Ur Specific [place] 1.026 (1.001-1.035) Urine Protein 1+ H (Negative) Urine Glucose (UA) Negative (Negative) Urine Ketones Negative (Negative) Urine Blood Negative (Negative) Urine Nitrite Negative (Negative) Urine Bilirubin Negative (Negative) Urine Urobilinogen <2.0 (<2.0) mg/dL Ur Leukocyte Esterase Negative (Negative) Urine RBC 6 H (0-5) /hpf Urine WBC <1 (0-5) /hpf Ur Squamous Epith Cells <1 (0-4) /hpf Urine Mucus Rare H (None) /hpf Influenza Type A (PCR) (Not Detectd) Influenza Type B (PCR) (Not Detectd) RSV (PCR) (Not Detectd) SARS-CoV-2 (PCR) (Not Detectd) 06/05/22 Range/Units 10:40 WBC (3.8-10.6) k/uL RBC (4.30-5.90) m/uL Hgb (13.0-17.5) gm/dL Hct (39.0-53.0) % MCV (80.0-100.0) fL MCH (25.0-35.0) pg MCHC (31.0-37.0) g/dL RDW (11.5-15.5) % Plt Count (150-450) k/uL MPV Neutrophils % (Manual) % Lymphocytes % (Manual) % Monocytes % (Manual) % Neutrophils # (Manual) (1.3-7.7) k/uL Lymphocytes # (Manual) (1.0-4.8) k/uL Monocytes # (Manual) (0-1.0) k/uL Nucleated RBCs (0-0) /100 WBC Polychromasia PT (9.0-12.0) sec INR (<1.2) APTT (22.0-30.0) sec Sodium (137-145) mmol/L Potassium (3.5-5.1) mmol/L Chloride (98-107) mmol/L Carbon Dioxide (22-30) mmol/L Anion Gap mmol/L BUN (9-20) mg/dL Creatinine (0.66-1.25) mg/dL Est GFR (CKD-EPI)AfAm (>60 ml/min/1.73 sqM) Est GFR (CKD-EPI)NonAf (>60 ml/min/1.73 sqM) Glucose (74-99) mg/dL Plasma Lactic Acid Denzel (0.7-2.0) mmol/L Calcium (8.4-10.2) mg/dL Total Bilirubin (0.2-1.3) mg/dL AST (17-59) U/L ALT (4-49) U/L Alkaline Phosphatase (38-126) U/L Troponin I (0.000-0.034) ng/mL Total Protein (6.3-8.2) g/dL Albumin (3.5-5.0) g/dL Urine Color Urine Appearance (Clear) Urine pH (5.0-8.0) Ur Specific [place] (1.001-1.035) Urine Protein (Negative) Urine Glucose (UA) (Negative) Urine Ketones (Negative) Urine Blood (Negative) Urine Nitrite (Negative) Urine Bilirubin (Negative) Urine Urobilinogen (<2.0) mg/dL Ur Leukocyte Esterase (Negative) Urine RBC (0-5) /hpf Urine WBC (0-5) /hpf Ur Squamous Epith Cells (0-4) /hpf Urine Mucus (None) /hpf Influenza Type A (PCR) Not Detected (Not Detectd) Influenza Type B (PCR) Not Detected (Not Detectd) RSV (PCR) Not Detected (Not Detectd) SARS-CoV-2 (PCR) Detected A (Not Detectd) Disposition Clinical Impression: COVID-19, Weakness Disposition: HOME SELF-CARE Condition: Good Instructions (If sedation given, give patient instructions): COVID-19 (Coronavirus Disease 2019) (ED) Is patient prescribed a controlled substance at d/c from ED?: No Referrals: Vega Luque MD [Primary Care Provider] - 1-2 days Time of Disposition: 12:30
[2022-06-05 11:51] VITALS: TEMP 98.9
[2022-06-05 12:06] LABS: Appearance,Urine Clear (Clear); Bilirubin,Urine Negative (Negative); Blood,Urine Negative (Negative); Color,Urine Yellow; Glucose,Urine (UA) Negative (Negative); Ketones,Urine Negative (Negative); Leukocyte Esterase,Urine Negative (Negative); Mucus,Urine Rare /hpf; Nitrite,Urine Negative (Negative); Protein,Urine 1+ (Negative); RBC,Urine 6 /hpf (0-5); Specific Gravity,Urine 1.026 (1.001-1.035); Squamous Epithelial Cell,Urine <1 /hpf (0-4); Urobilinogen,Urine <2.0 mg/dL (<2.0); WBC,Urine <1 /hpf (0-5)
[2022-06-05 13:01] VITALS: BP 136/79; PULSE 81
== END 2022-06-05 13:01 | disposition home or self-care (01) ==
LOC: EC 10:00
DX: U07.1 COVID-19 (principal); E78.5 Hyperlipidemia, unspecified; I10 Essential (primary) hypertension; Z86.73 Personal history of transient ischemic attack (TIA), and cerebral infarction without residual deficits; Z79.82 Long term (current) use of aspirin; Z79.899 Other long term (current) drug therapy
CPT/HCPCS: 36415; 71046; 80053; 81001; 83605; 84484; 85025; 85610; 85730; 87040; 87636; 93005; 99285

== ENCOUNTER 2022-06-24 10:21 | Emergency (ER) | payer MEDICARE ==
[2022-06-24 10:44] VITALS: RESP 18
--- NOTE | 2022-06-24 11:25 | CT ---
EXAMINATION TYPE: CT brain wo con DATE OF EXAM: 06/24/2022 COMPARISON: 04/07/2022 HISTORY: shunt with headache CT DLP: 1180.4 mGycm Automated exposure control for dose reduction was used. FINDINGS: There is been no change in the left ventricular shunt catheter that enters the right calvarium. There is metallic artifact in the prepontine cistern which was seen previously. Cannot exclude a small ambreen unt of air or artifact in the cavernous sinus which is seen on multiple prior exams and is stable. There is a remote infarct in the left cerebellum. There is no acute bleed or mass effect. The calvari um is intact. There are mild inflammatory changes in the paranasal sinuses. The intraorbital contents appear normal and symmetric. Right-sided [employer] shunt catheter again noted with findings compatible with a stable ventricular size. Mi ld generalized degenerative change of the greater frontal lobe component. IMPRESSION: 1. No acute hemorrhage or mass effect. 2. Remote left cerebellar infarct. 3. Postsurgical changes. Ventricular size is stable from prior exam with [employer] shunt catheter also austin burnette
--- NOTE | 2022-06-24 11:26 | XR ---
EXAMINATION TYPE: XR KUB DATE OF EXAM: 06/24/2022 COMPARISON: NONE HISTORY: Pain TECHNIQUE: One view abdominal series FINDINGS: The osseous structures are intact. The bowel gas pattern is nonspecific. Hypertrophic and degenerati ve changes in spine. Peritoneal dialysis catheter noted. Postsurgical changes involving bilateral hip s. IMPRESSION: 1. Nonspecific abdomen with no evidence of obstruction. 2. Peritoneal dialysis catheter with tip overlying the mid pelvis.
[2022-06-24 12:17] LABS: ALT 33 U/L (4-49); AST 26 U/L (17-59); African American GFR (CKD) >90 (>60 ml/min/1.73 sqM); Albumin 4.3 g/dL (3.5-5.0); Alkaline Phosphatase 93 U/L (38-126); Amylase 41 U/L (30-110); Anion Gap 8 mmol/L; Blood Urea Nitrogen 15 mg/dL (9-20); Calcium 8.6 mg/dL (8.4-10.2); Carbon Dioxide 28 mmol/L (22-30); Chloride 103 mmol/L (98-107); Glucose 136 mg/dL (74-99); Lipase 89 U/L (23-300); Non-African American GFR(CKD) >90 (>60 ml/min/1.73 sqM); Potassium 4.3 mmol/L (3.5-5.1); Sodium 139 mmol/L (137-145); Total Bilirubin 1.2 mg/dL (0.2-1.3)
[2022-06-24] MEDS ORDERED: PANTOPRAZOLE 40 MG/10 ML VIAL IVP STA (13:04)
[2022-06-24] MEDS ORDERED: SODIUM CHLORIDE 0.9% 1,000 ML IV STA (13:04)
[2022-06-24] MEDS ORDERED: MORPHINE SULFATE 4 MG/ML SYRINGE IVP STA (13:04)
[2022-06-24] MEDS ORDERED: KETOROLAC 15 MG/ML 1 ML VIAL IVP STA (13:05)
[2022-06-24] MEDS ORDERED: METOCLOPRAMIDE 5 MG/ML 2 ML VIAL IVP STA (13:05)
--- NOTE | 2022-06-24 13:15 | ED ---
General Adult HPI - General Chief complaint: Weakness Stated complaint: abd pain, headaches Time Seen by Provider: 06/24/22 12:46 Source: patient, RN notes reviewed, old records reviewed Mode of arrival: ambulatory Limitations: no limitations - History of Present Illness Initial comments: Patient is a 62-year-old male who presents emergency Department with his son with primary complaint of increased denies weakness as well as left lower quadrant abdominal discomfort. 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 Patient should beats is primarily to the left lower quadrant abdominal discomfort. Denies any diarrhea. Denies any nausea or vomiting. Patient did have a headache earlier today which self resolved. Denies worst headache of his life. 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 Denies any blurry vision. Denies any other weakness or numbness at this time. States he does have a history of diverticulitis and this feels like his diverticulitis pain. Denies any chest pain, shortness breath, f jaylen. Denies any blood in his stool. Last bowel movement was yesterday and was normal for him. Denies any blood in the emesis. Denies emesis. Presents for further evaluation at this time. Denies any dysuria or hematuria. - Related Data Home Medications Medication Instructions Recorded Confirmed Aspirin [Children's Aspirin] 81 mg PO DAILY 01/18/19 03/09/22 Atorvastatin [Lipitor] 40 mg PO HS 01/13/21 03/09/22 Metoprolol Tartrate [Lopressor] 75 mg PO BID 01/13/21 03/09/22 Umeclidinium Brm/Vilanterol Tr 1 puff INHALATION RT-DAILY 01/13/21 03/09/22 [Anoro Ellipta 62.5-25 Mcg INH] metFORMIN HCL ER [Glucophage XR] 500 mg PO HS 01/13/21 03/09/22 Citalopram Hydrobromide 20 mg PO HS 03/09/22 03/09/22 [Citalopram HBr] Previous Rx's Medication Instructions Recorded Amoxic-Pot Clav 875-125Mg 1 tab PO Q12HR 1 Days #20 tab 03/09/22 [Augmentin 875-125] Amoxic-Pot Clav 875-125Mg 1 tab PO Q8HR 5 Days #15 tab 06/24/22 [Augmentin 875125] Dicyclomine [Bentyl] 10 mg PO TID PRN 7 Days #21 capsule 06/24/22 Allergies Allergy/AdvReac Type Severity Reaction Status Date / Time No Known Allergies Allergy Verified 06/24/22 10:44 Review of Systems ROS Statement: Those systems with pertinent positive or pertinent negative responses have been documented in the HPI. Review of Systems: CONST: Denies fever EYES: Denies blurry vision ENT: Denies nasal congestion C/V: Denies Chest pain RESP: Denies shortness of breath GI: Endorses abdominal pain : Denies dysuria SKIN: Denies rash. MSK: Denies joint pain. NEURO: Denies headache ROS Other: All systems not noted in ROS Statement are negative. Past Medical History Past Medical History: CVA/TIA, Hyperlipidemia, Hypertension, Musculoskeletal Disorder, Sleep Apnea/CPAP/BIPAP Additional Past Medical History / Comment(s): uses CPAP, kidney stones History of Any Multi-Drug Resistant Organisms: None Reported Past Surgical History: Back Surgery, Heart Catheterization, Joint Replacement, Orthopedic Surgery Additional Past Surgical History / Comment(s): Total R hip arthroplasty 06/14/17, total l hip arthroplasty 2 years ago, CERVICAL SURGERY WITH PLATE, URETHRA SURGERY, [facility] PROCEDURES Past Anesthesia/Blood Transfusion Reactions: No Reported Reaction Additional Past Anesthesia/Blood Transfusion Reaction / Comment(s): No history of blood transfusion. Past Psychological History: No Psychological Hx Reported Smoking Status: Never smoker Past Alcohol Use History: None Reported Past Drug Use History: None Reported - Past Family History Mother Family Medical History: Cancer Additional Family Medical History / Comment(s): lung cancer Father Family Medical History: Myocardial Infarction ([place]) Additional Family Medical History / Comment(s): Father is 76 yrs old. General Exam - General Exam Comments Initial Comments: General: Appears in no acute distress. HEAD: Normal with no signs of head trauma. EYES: PERRLA, EOMI, conjunctiva normal, no discharge. Pupils are 3 mm and equal bilaterally. ENT: Hearing grossly intact, normal oropharynx. RESPIRATORY: Clear breath sounds bilaterally. No wheezes, rales, or rhonchi. C/V: Regular rate and rhythm. S1 and S2 auscultated, no edema, peripheral pulses 2+ and intact throughout ABD: Abdomen is soft, nondistended. Tender to palpation in the left lower q uadrant. No guarding. No rebound tenderness. No peritoneal signs. EXT: Normal range of motion, no obvious deformity SKIN: No rashes or lesions observed on exposed skin. NEURO: Alert and oriented x 4. Cranial nerves II-XII intact. No focal sensory or strength deficits. Somewhat generalized left-sided weakness which is chronic. He lives with a cane at baseline. Limitations: no limitations Course Vital Signs 06/24/22 06/24/22 06/24/22 10:41 14:33 16:07 Temperature 98 F 98.8 F 98.1 F Pulse Rate 78 82 81 Respiratory 18 18 18 Rate Blood Pressure 157/96 138/95 154/97 O2 Sat by Pulse 98 97 100 Oximetry Medical Decision Making - Medical Decision Making Was pt. sent in by a medical professional or institution (, PA, DIRECTOR SANITATION BUREAU, urgent care, hospital, or long term...) When possible be specific @ -No Did you speak to anyone other than the patient for history (EMS, parent, family, police, friend...)? What history was obtained from this source @ -Yes, patient's son. Provided better information regarding onset of symptoms, as well as patient's past medical history. Did you review nursing and triage notes (agree or disagree)? Why? @ -I reviewed and agree with nursing and triage notes Were old charts reviewed (outside hosp., previous admission, EMS record, old EKG, old radiological studies, urgent care reports/EKG's, long term records)? Report findings @ -Yes. Old radiological studies. Differential Diagnosis (chest pain, altered mental status, abdominal pain women, abdominal pain men, vaginal bleeding, weakness, fever, dyspnea, syncope, headache, dizziness, GI bleed, back pain, seizure, CVA, palpatations, mental health)? @ -Differential Abdominal Pain Men: Appendicitis, cholecystitis, diverticulosis, ischemic bowel, pancreatitis, hep atitis, UTI, gastroenteritis, AAA, incarcerated hernia, bowel obstruction, constipation, inflammatory bowel, hepatitis, peptic ulcer disease, splenic infarction, perforated viscus, testicular torsion, this is not meant to be an all-inclusive list EKG interpreted by me (3pts min.). @ -None done X-rays interpreted by me (1pt min.). @ -KUB x-ray shows his BOTANICAL TECHNICAL OFFICER shunt catheter in place but no other acute injury abdominal process. CT interpreted by me (1pt min.). @ -CT brain revealed no acute intracranial process, mass, midline shift. BOTANICAL TECHNICAL OFFICER shunt appears to be functioning properly, as ventricles appears stable when compared with prior CT. CT abdomen and pelvis with contrast revealed findings concerning for acute diverticulitis with inflammation in the lower sigmoid colon. Radiology interpreted as revealing possible malignancy that cannot be ruled out. U/S interpreted by me (1pt. min.). @ -None done What testing was considered but not performed or refused? (CT, X-rays, U/S, labs)? Why? @ -None What meds were considered but not given or refused? Why? @ -None Did you discuss the management of the patient with other professionals (professionals i.e. , PA, DIRECTOR SANITATION BUREAU, lab, RT, psych nurse, social work associate, manager massage department, teacher, correctional officer, manager rn case)? Give summary @ -No Was smoking cessation discussed for >3mins.? @ -No Was critical care preformed (if so, how long)? @ -No Were there social determinants of health that impacted care today? How? (Homelessness, low income, unemployed, alcoholism, drug addiction, transportation, low edu. Level, literacy, decrease access to med. care, nursing home, rehab)? @ -No Was there de-escalation of care discussed even if they declined (Discuss DNR or withdrawal of care, Hospice)? DNR status @ -No What co-morbidities impacted this encounter? (DM, HTN, Smoking, COPD, CAD, Cancer, CVA, ARF, Chemo, Hep., AIDS, mental health diagnosis, sleep apnea, morbid obesity)? @ -Chronic stroke, chronic headaches, history of diverticulitis, history of deficits from stroke. Was patient admitted / discharged? Hospital course, mention meds given and route, prescriptions, significant lab abnormalities, going to OR and other pertinent info. @ -Based on the patient's presentation and physical exam, there was concern for acute intra-abdominal process for the patient. He did have a headache as well, and workup was started on triage. Laboratory studies were reviewed and remarka ble for no acute findings. Electrolytes within normal limits. CT brain and KUB x-ray while the patient was in triage revealed no acute process. BOTANICAL TECHNICAL OFFICER shunt appears to be functioning. I spoke with the patient as well as his son and I believe that we should rule out diverticulitis with a CT abdomen and pelvis. There were no agreement this plan. He'll be symptomatically treated with IV analgesia medications Toradol, morphine as well as antiemetics Reglan and Protonix. He will receive a 1 L fluid bolus. He was in agreement this plan. Vital signs within acceptable limits. CT abdomen and pelvis was delayed due to high demand for computed tomography scan of but did return showing signs concerning for inflammation of the sigmoid colon and diverticula, diverticulitis. However, radiology states that they cannot rule out malignancy at this time. I discussed results with patient's as well as the patient. Next rest understanding. I recommended colonoscopy be performed Tuesday his symptoms have improved for further evaluation. They were in agreement this plan. Patient will be given a dose of antibiotic Augmentin and provided with a prescription. He'll be discharged home at this time. Has uncomplicated diverticulitis. I will provide the patient with a prescription for Bentyl, Augmentin. I instructed the patient to follow up with their PCP in the next 1-3 days . I explained that the patient should return to the emergency department if they experience any worsening symptoms. Strict return precautions were discussed with the patient. The patient expressed understanding of these instructions. I answered all questions that the patient had. The patient was discharged home in good condition with their prescriptions and follow up information. Undiagnosed new problem with uncertain prognosis? @ -No Drug Therapy requiring intensive monitoring for toxicity (Heparin, Nitro, Insulin, Cardizem)? @ -No Were any procedures done? @ -No Diagnosis/symptom? @ -Diverticulitis Acute, or Chronic, or Acute on Chronic? @ -Acute on chronic Uncomplicated (without systemic symptoms) or Complicated (systemic symptoms)? @ -Uncomplicated Side effects of treatment? @ -No Exacerbation, Progression, or Severe Exacerbation? @ -No Poses a threat to life or bodily function? How? (Chest pain, [place], [place], pneumonia, PE, COPD, DKA, ARF, appy, cholecystitis, CVA, Diverticulitis, Homicidal, Suicidal, threat to staff... and all critical care pts) @ -Yes. Possible worsening infection and perforation. Requires treatment antibiotics and return if worsening symptoms. - Lab Data Result diagrams: 06/24/22 11:39 06/24/22 11:30 Lab Results 06/24/22 06/24/22 06/24/22 Range/Units 11:30 11:39 13:14 WBC 5.4 (3.8-10.6) k/uL RBC 4.89 (4.30-5.90) m/uL Hgb 14.6 (13.0-17.5) gm/dL Hct 44.0 (39.0-53.0) % MCV 90.1 (80.0-100.0) fL MCH 29.9 (25.0-35.0) pg MCHC 33.2 (31.0-37.0) g/dL RDW 13.3 (11.5-15.5) % Plt Count 184 (150-450) k/uL MPV 8.7 Neutrophils % 72 % Lymphocytes % 15 % Monocytes % 9 % Eosinophils % 1 % Basophils % 1 % Neutrophils # 3.9 (1.3-7.7) k/uL Lymphocytes # 0.8 L (1.0-4.8) k/uL Monocytes # 0.5 (0-1.0) k/uL Eosinophils # 0.0 (0-0.7) k/uL Basophils # 0.1 (0-0.2) k/uL Sodium 139 (137-145) mmol/L Potassium 4.3 (3.5-5.1) mmol/L Chloride 103 (98-107) mmol/L Carbon Dioxide 28 (22-30) mmol/L Anion Gap 8 mmol/L BUN 15 (9-20) mg/dL Creatinine 0.80 (0.66-1.25) mg/dL Est GFR (CKD-EPI)AfAm >90 (>60 ml/min/1.73 sqM) Est GFR (CKD-EPI)NonAf >90 (>60 ml/min/1.73 sqM) Glucose 136 H (74-99) mg/dL Calcium 8.6 (8.4-10.2) mg/dL Total Bilirubin 1.2 (0.2-1.3) mg/dL AST 26 (17-59) U/L ALT 33 (4-49) U/L Alkaline Phosphatase 93 (38-126) U/L Total Protein 7.0 (6.3-8.2) g/dL Albumin 4.3 (3.5-5.0) g/dL Amylase 41 (30-110) U/L Lipase 89 (23-300) U/L Urine Color Yellow Urine Appearance Clear (Clear) Urine pH 6.0 (5.0-8.0) Ur Specific [place] 1.027 (1.001-1.035) Urine Protein 1+ H (Negative) Urine Glucose (UA) Negative (Negative) Urine Ketones Negative (Negative) Urine Blood Trace H (Negative) Urine Nitrite Negative (Negative) Urine Bilirubin Negative (Negative) Urine Urobilinogen 2.0 (<2.0) mg/dL Ur Leukocyte Esterase Negative (Negative) Urine RBC 8 H (0-5) /hpf Urine WBC 1 (0-5) /hpf Urine Mucus Few H (None) /hpf Disposition Clinical Impression: Diverticulitis Disposition: HOME SELF-CARE Condition: Good Instructions (If sedation given, give patient instructions): Diverticulitis (ED) Prescriptions: Amoxic-Pot Clav 875-125Mg [Augmentin 875-125] 1 tab PO Q8HR 5 Days #15 tab Dicyclomine [Bentyl] 10 mg PO TID PRN 7 Days #21 capsule PRN Reason: Pain Is patient prescribed a controlled substance at d/c from ED?: No Referrals: Vega Luque MD [Primary Care Provider] - 1-2 days Clarisse Page MD [STAFF PHYSICIAN] - 1-2 days Time of Disposition: 15:35
--- NOTE | 2022-06-24 14:05 | CT ---
EXAMINATION TYPE: CT abdomen pelvis w con CT DLP: 1398.7 mGycm, Automated exposure control for dose reduction was used. DATE OF EXAM: 06/24/2022 1:54 PM COMPARISON: CT abdomen pelvis most recent from 03/09/2022. CLINICAL INDICATION:Male, 62 years old with history of LLQ abd pain; abd pain TECHNIQUE: Standard CT of the abdomen and pelvis following the administration of 100 cc of Isovue 3 00 IV contrast material. Coronal and sagittal reformats were performed. FINDINGS: LOWER CHEST: Posterior dependent subsegmental atelectasis is noted. ABDOMEN LIVER: Unremarkable GALLBLADDER AND BILE DUCTS: Unremarkable. PANCREAS: Unremarkable. SPLEEN: Unremarkable. ADRENAL GLANDS: Unremarkable. KIDNEYS AND URETERS: No evidence of hydronephrosis or renal calculus. Stable left renal cyst. PELVIS BLADDER: Under distended, limiting evaluation. REPRODUCTIVE: Poorly visualized due to streak artifact. ABDOMEN & PELVIS STOMACH AND BOWEL: Irregular wall thickening at the sigmoid colon and descending colon junction which may be related to chronic diverticulosis. Minimal stranding fat stranding. No pericolonic abscess. A few prominent adjacent lymph nodes identified. The stomach and duodenum are unremarkable.Colonic div erticulosis without evidence for acute diverticulitis. The appendix is within normal limits. No evide nce of bowel obstruction. PERITONEUM: No evidence of pneumoperitoneum or free fluid. VASCULATURE: Mild atherosclerotic calcifications are present throughout the abdominal aorta and its b ranches. No evidence of aortic aneurysm. MUSCULOSKELETAL: No acute osseous abnormalities. Postsurgical changes of bilateral hip arthroplasties . This creates streak artifact which was evaluation of the pelvis. Mild multilevel degenerative disc disease. LYMPH NODES: No gross evidence for lymphadenopathy. SOFT TISSUE/ABDOMINAL WALL: AP shunt catheter along the anterior abdominal wall with tip terminating in the anterior mid pelvis without turning fluid collection. IMPRESSION: Irregular wall thickening of the colon at the sigmoid/descending junction with multiple diverticula. There is minimal surrounding fat stranding. Findings may relate to acute on chronic diverticulosis ho wever malignancy is not excluded. Direct visualization is recommended if not recently performed.
[2022-06-24 14:38] LABS: Appearance,Urine Clear (Clear); Bilirubin,Urine Negative (Negative); Blood,Urine Trace (Negative); Color,Urine Yellow; Glucose,Urine (UA) Negative (Negative); Ketones,Urine Negative (Negative); Leukocyte Esterase,Urine Negative (Negative); Mucus,Urine Few /hpf; Nitrite,Urine Negative (Negative); Protein,Urine 1+ (Negative); RBC,Urine 8 /hpf (0-5); Specific Gravity,Urine 1.027 (1.001-1.035); WBC,Urine 1 /hpf (0-5)
[2022-06-24 14:46] LABS: Basophils # (A) 0.1 k/uL (0-0.2); Basophils % (A) 1 %; Eosinophils % (A) 1 %; HGB 14.6 gm/dL (13.0-17.5); Lymphocytes # (A) 0.8 k/uL (1.0-4.8); Lymphocytes % (A) 15 %; MCH 29.9 pg (25.0-35.0); MCHC 33.2 g/dL (31.0-37.0); MCV 90.1 fL (80.0-100.0); Mean Platelet Volume 8.7; Monocytes # (A) 0.5 k/uL (0-1.0); Monocytes % (A) 9 %; Neutrophils # (A) 3.9 k/uL (1.3-7.7); Neutrophils % (A) 72 %; Platelet Count 184 k/uL (150-450); RBC 4.89 m/uL (4.30-5.90); RDW 13.3 % (11.5-15.5); WBC 5.4 k/uL (3.8-10.6)
[2022-06-24] MEDS ORDERED: AMOXIC-POT CLAV 875-125MG 1 EACH TAB PO STA (15:54)
[2022-06-24 16:09] VITALS: BP 154/97; PULSE 81; TEMP 98.1
== END 2022-06-24 16:08 | disposition home or self-care (01) ==
LOC: EC 10:21
DX: K57.92 Diverticulitis of intestine, part unspecified, without perforation or abscess without bleeding (principal); I10 Essential (primary) hypertension; E78.5 Hyperlipidemia, unspecified; G47.30 Sleep apnea, unspecified; Z79.82 Long term (current) use of aspirin; Z79.899 Other long term (current) drug therapy; Z79.84 Long term (current) use of oral hypoglycemic drugs
CPT/HCPCS: 36415; 80053; 82150; 83690; 85025; 81001; 74018; 70450; 74177; 99285; 96374; 96375 ×3; 96361; J2270; J2765; J1885; C9113; Q9967

== ENCOUNTER → 2022-10-13 | Outpatient (CLI) | payer MEDICARE ==
[2022-10-13 11:18] LABS: Basophils # (A) 0.05 X 10*3/uL (0.00-0.10); Basophils % (A) 0.7 %; Eosinophils # (A) 0.18 X 10*3/uL (0.04-0.35); Eosinophils % (A) 2.7 %; HGB 14.5 g/dL (13.0-17.0); Immature Grans, Automated 0.4 %; Lymphocytes # (A) 1.55 X 10*3/uL (0.90-5.00); Lymphocytes % (A) 23.1 %; MCH 27.9 pg (27.0-32.0); MCHC 30.9 g/dL (32.0-37.0); MCV 90.6 fL (80.0-97.0); Mean Platelet Volume 11.8 fL (9.5-12.2); Monocytes # (A) 0.43 X 10*3/uL (0.20-1.00); Monocytes % (A) 6.4 %; NRBC Per 100 WBC 0 /100 WBCS (0.0-0.0); Neutrophils # (A) 4.47 X 10*3/uL (1.80-7.70); Neutrophils % (A) 66.7 %; Platelet Count 201 X 10*3/uL (140-440); RBC 5.19 X 10*6/uL (4.40-5.60); RDW 13.2 % (11.5-14.5); WBC 6.71 X 10*3/uL (4.50-10.00)
[2022-10-13 14:32] LABS: ALT 29 U/L (10-49); AST 13 U/L (14-35); African American GFR (CKD) 108.9 (60.0-200.0); Albumin 4.2 g/dL (3.8-4.9); Albumin/Globulin Ratio 1.96 (1.60-3.17); Alkaline Phosphatase 96 U/L (41-126); BUN/Creat Ratio 16.79 Ratio (12.00-20.00); Blood Urea Nitrogen 13.6 mg/dL (9.0-27.0); Calcium 9.1 mg/dL (8.7-10.3); Carbon Dioxide 29.1 mmol/L (20.0-27.5); Chloride 105 mmol/L (96-109); Chol/HDL Ratio 3.65 Ratio; Globulin 2.2 g/dL (1.6-3.3); Glucose 168 mg/dL (70-110); LDL Cholesterol,Calculated 40.9 mg/dL (0.0-131.0); Non-African American GFR(CKD) 93.9 (60.0-200.0); Potassium 4.4 mmol/L (3.5-5.5); Sodium 143 mmol/L (135-145); Total Protein 6.4 g/dL (6.2-8.2)
== END | disposition home or self-care (01) ==
LOC: LABWHC1 07:32
PROVIDERS: ATTEND Family Medicine
DX: E11.9 Type 2 diabetes mellitus without complications (principal)
CPT/HCPCS: 36415; 80053; 80061; 82043; 82570; 83036; 84443; 85025

== ENCOUNTER → 2022-11-12 | Outpatient (CLI) | payer MEDICARE ==
--- NOTE | 2022-11-12 08:45 | US ---
EXAMINATION TYPE: US duplex aorta DATE OF EXAM: 11/12/2022 COMPARISON: CT dated 06/24/2022 CLINICAL INDICATION: Male, 62 years old with history of Z13.6 SCREENING FOR CARDIOVASCULAR DISEASE; TECHNIQUE: Multiple sonographic images of the abdominal aorta are obtained. FINDINGS: EXAM MEASUREMENTS: Abdominal Aorta: Proximal: 3.2 x 3.0 cm Mid: 2.9 x 2.1 cm Distal: 2.4 x 1.9 cm Bifurcation: right, 1.5 x 1.4 cm left, 1.8 x 1.5 cm REFRIGERATION PLANT OPERATOR NOTES: Aorta is successfully visualized through the bifurcation. IMPRESSION: Minimal aneurysmal change to the proximal abdominal aorta.
== END | disposition home or self-care (01) ==
LOC: RADUSWWP 08:11
PROVIDERS: ATTEND Family Medicine
DX: Z13.6 Encounter for screening for cardiovascular disorders (principal); I70.0 Atherosclerosis of aorta
CPT/HCPCS: 76706

== ENCOUNTER → 2023-04-06 | Outpatient (CLI) | payer MEDICARE ==
--- NOTE | 2023-04-06 11:23 | P.PN ---
Subjective DATE: 04/06/2023 FOLLOW UP VISIT. Patient with obstructive sleep apnea hypopnea syndrome return to sleep center for follow-up visit. Information from previous visit have been reviewed. Patient was not able to use his CPAP equipment recently because she is CPAP unit started to createand and that disrupt patient sleep. Randolph sleepiness scale is , which is in acceptable range8. I checked PAP unit. It is noisy . PAP unit pressure5-15 cm H2O. MEDICATIONS:1. Metoprolol 75 mg twice a day 2. Atorvastatin 40 mg once a day 3. Metformin 500 mg once a day 4. Citalopram 30 mg once a day During physical exam: GENERAL: A pleasant patient without any distress. VITAL SIGNS: BP [], HR [], RR[] , weight[], temperature [], oxygen saturation at room air[]% . HEENT: PERRLA, EOMI.low position of soft palate, Mallapati[] . NECK: Supple. No JVD. LUNGS: Clear to percussion and to auscultation. Good air exchange. No wheezing or rhonchi. HEART: S1, S2 regular. ABDOMEN: Soft and nontender.[] EXTREMITIES: No clubbing or cyanosis. AIRLINE PILOT: Awake, alert, and oriented x3. Left-sided weakness and changing of speech. Impressions: 1. Obstructive sleep apnea-hypopnea syndrome. Patient was not able to use CPAP equipment, because it's noisy. 2. Status post stroke in November 2018. Residual left-sided weakness and changes of the speech]. 3. Hypertension. 4. History of hydrocephalus, status post SURGERY NURSE shunt. 5. Status post bilateral hip replacement. 6. History of cerebral aneurysm, treated surgically in 2019. 7. Status post cervical fusion. Plan: 1. Prescription to replace CPAP unit with AutoPAP range of pressure 5-16 cm of water. 2. To change air filter at least 1-2 times per month. 3. PAP unit should stay lower then position of the head. 4. Advised patient to remove all remaining water from humidifier canister daily and make it dry after each usage. Refill canister with fresh distilled water before each usage. 5. Sleep hygiene with regular time in bed for at least 8 hours. 6. Precautions related to driving. No driving if feel any sleepiness. 7. I will maintain prescription for PAP supplies including mask, tube, filters. 8. Follow up visit in 1-2 months after patient will get new CPAP unit. 9. Watching weight. Thank you very much for allowing me to participate in the management of your patient. Jourdan Baker MD, PhD, FAASM. Diplomat of [place] [employer], Sleep Medicine Board by [place] [employer] Associate Business Analyst of [facility] [place]
== END ==
LOC: 3 N SLEEP 10:13
PROVIDERS: ATTEND Internal Medicine
DX: G47.33 Obstructive sleep apnea (adult) (pediatric) (principal); I10 Essential (primary) hypertension; Z79.84 Long term (current) use of oral hypoglycemic drugs; Z79.899 Other long term (current) drug therapy; Z86.73 Personal history of transient ischemic attack (TIA), and cerebral infarction without residual deficits; Z86.79 Personal history of other diseases of the circulatory system; Z96.643 Presence of artificial hip joint, bilateral; Z98.1 Arthrodesis status; Z98.2 Presence of cerebrospinal fluid drainage device; Z98.890 Other specified postprocedural states; Z99.89 Dependence on other enabling machines and devices; Z87.891 Personal history of nicotine dependence
CPT/HCPCS: 99212

== ENCOUNTER → 2023-05-19 | Outpatient (CLI) | payer MEDICARE ==
[2023-05-19 16:32] LABS: ALT 35 U/L (10-49); AST 15 U/L (14-35); Albumin 4.1 g/dL (3.8-4.9); Albumin/Globulin Ratio 1.86 Ratio (1.60-3.17); Alkaline Phosphatase 96 U/L (41-126); BUN/Creat Ratio 16.88 Ratio (12.00-20.00); Blood Urea Nitrogen 13.5 mg/dL (9.0-27.0); Calcium 8.8 mg/dL (8.7-10.3); Carbon Dioxide 27.5 mmol/L (21.6-31.8); Chloride 103 mmol/L (96-109); Chol/HDL Ratio 4.25 Ratio; Globulin 2.2 g/dL (1.6-3.3); Glucose 180 mg/dL (70-110); LDL Cholesterol,Calculated 45.7 mg/dL (0.0-131.0); Sodium 142 mmol/L (135-145); Total Bilirubin 0.5 mg/dL (0.3-1.2); Total Protein 6.3 g/dL (6.2-8.2)
== END | disposition home or self-care (01) ==
LOC: LABWHC1 07:34
PROVIDERS: ATTEND Family Medicine
DX: Z00.01 Encounter for general adult medical examination with abnormal findings (principal); Z12.5 Encounter for screening for malignant neoplasm of prostate; E11.21 Type 2 diabetes mellitus with diabetic nephropathy
CPT/HCPCS: 80061; 80053; 83036; 36415; G0103

== ENCOUNTER 2023-06-11 07:41 | Observation (INO) | payer MEDICARE ==
--- NOTE | 2023-06-11 07:53 | ED ---
General Adult HPI - General Source: patient, family, RN notes reviewed Mode of arrival: wheelchair Limitations: physical limitation <Gigi Morrow - Last Filed: 06/11/23 07:52> - General Source: patient, family, RN notes reviewed Mode of arrival: wheelchair <Alberto Hernandez - Last Filed: 06/11/23 13:30> - General Stated complaint: no leg strength, chills Time Seen by Provider: 06/11/23 07:52 - History of Present Illness Initial comments: 63-year-old male presents emergency Department with chief complaint of fever, weakness, chills. Patient did have some shortness of breath. states that he's had a prior CVA and states that the symptoms past and was related to diverticulitis. Patient has minimal sensation in his left side as he has left-sided deficits. (Gigi Morrow) Patient is a pleasant 4 he 3-year-old male presenting to the emergency Department with with concerns for chills. Onset of symptoms was last night. Patient is weaker than normal and is having difficulty getting around. Urine was darker than normal. Patient admits to having chills and weakness. Patient is a poor historian secondary to previous severe stroke. resides majority of history. Patient has mild cough however that is chronic and unchanged. Patient does have history of similar symptoms previously associated with diverticulitis. is concerned the patient has decreased sensation in the left side normally. (Alberto Hernandez) - Related Data Home Medications Medication Instructions Recorded Confirmed Aspirin [Children's Aspirin] 81 mg PO DAILY 01/18/19 03/09/22 Atorvastatin [Lipitor] 40 mg PO HS 01/13/21 03/09/22 Metoprolol Tartrate [Lopressor] 75 mg PO BID 01/13/21 03/09/22 Umeclidinium Brm/Vilanterol Tr 1 puff INHALATION RT-DAILY 01/13/21 03/09/22 [Anoro Ellipta 62.5-25 Mcg INH] metFORMIN HCL ER [Glucophage XR] 500 mg PO HS 01/13/21 03/09/22 Citalopram Hydrobromide 20 mg PO HS 03/09/22 03/09/22 [Citalopram HBr] Previous Rx's Medication Instructions Recorded Amoxic-Pot Clav 875-125Mg 1 tab PO Q12HR 1 Days #20 tab 03/09/22 [Augmentin 875-125] Amoxic-Pot Clav 875-125Mg 1 tab PO Q8HR 5 Days #15 tab 06/24/22 [Augmentin 875-125] Dicyclomine [Bentyl] 10 mg PO TID PRN 7 Days #21 capsule 06/24/22 Allergies Allergy/AdvReac Type Severity Reaction Status Date / Time No Known Allergies Allergy Verified 06/11/23 07:52 Review of Systems ROS Other: All systems not noted in ROS Statement are negative. <Gigi Morrow - Last Filed: 06/11/23 07:52> ROS Other: All systems not noted in ROS Statement are negative. Constitutional: Reports: as per HPI, chills Respiratory: Reports: as per HPI Neurological: Reports: as per HPI <Alberto Hernandez - Last Filed: 06/11/23 13:30> ROS Statement: Those systems with pertinent positive or pertinent negative responses have been documented in the HPI. Past Medical History Past Medical History: CVA/TIA, Hyperlipidemia, Hypertension, Musculoskeletal Disorder, Sleep Apnea/CPAP/BIPAP Additional Past Medical History / Comment(s): uses CPAP, kidney stones History of Any Multi-Drug Resistant Organisms: None Reported Past Surgical History: Back Surgery, Heart Catheterization, Joint Replacement, Orthopedic Surgery Additional Past Surgical History / Comment(s): Total R hip arthroplasty 05/21 12/04, total l hip arthroplasty 2 years ago, CERVICAL SURGERY WITH PLATE, URETHRA SURGERY, [facility] PROCEDURES Past Anesthesia/Blood Transfusion Reactions: No Reported Reaction Additional Past Anesthesia/Blood Transfusion Reaction / Comment(s): No history of blood transfusion. Past Psychological History: No Psychological Hx Reported Smoking Status: Never smoker Past Alcohol Use History: None Reported Past Drug Use History: None Reported - Past Family History Mother Family Medical History: Cancer Additional Family Medical History / Comment(s): lung cancer Father Family Medical History: Myocardial Infarction ([place]) Additional Family Medical History / Comment(s): Father is 76 yrs old. <Gigi Morrow - Last Filed: 06/11/23 07:52> General Exam <Gigi Morrow - Last Filed: 06/11/23 07:52> Limitations: no limitations General appearance: alert, in no apparent distress Head exam: Present: atraumatic Eye exam: Present: normal appearance ENT exam: Present: normal oropharynx Neck exam: Present: normal inspection. Absent: tenderness, meningismus Cardiovascular Exam: Present: regular rate, normal rhythm GI/Abdominal exam: Present: soft, tenderness (Mild tenderness left lower abdomen) Extremities exam: Present: normal inspection Neurological exam: Present: alert Psychiatric exam: Present: normal affect, normal mood Skin exam: Present: normal color <Alberto Hernandez - Last Filed: 06/11/23 13:30> - General Exam Comments Initial Comments: Visual Physical Exam Vital signs reviewed General: Well-appearing, nontoxic, no acute distress. Head: Normocephalic, atraumatic Eyes: PERRLA, EOMI ENT: Airway patent Chest: Nonlabored breathing Skin: No visual rash, normal skin tone Neuro: Alert and oriented 3 Musculoskeletal: No gross abnormalities (Gigi Morrow) Course Vital Signs 06/11/23 06/11/23 07:47 10:00 Temperature 98 F Pulse Rate 104 H 83 Respiratory 18 17 Rate Blood Pressure 138/100 133/87 O2 Sat by Pulse 94 L 97 Oximetry Medical Decision Making <Gigi Morrow - Last Filed: 06/11/23 07:52> - Lab Data Result diagrams: 06/11/23 07:53 06/11/23 07:53 <Alberto Hernandez - Last Filed: 06/11/23 13:30> - Medical Decision Making I completed the quick note portion of this chart signed Gigi Morrow PA-C (Gigi Morrow) Was pt. sent in by a medical professional or institution ([facility]OLIE Tejeda, [employer], urgent care, hospital, or group home...) When possible be specific @ -No Did you speak to anyone other than the patient for history (EMS, parent, family, police, friend...)? 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 Why? @ -I reviewed and agree with nursing and triage notes Were old charts reviewed (outside hosp., previous admission, EMS record, old EKG, old radiological studies, urgent care reports/EKG's, group home records)? Report findings @ -No old charts were reviewed Differential Diagnosis (chest pain, altered mental status, abdominal pain women, abdominal pain men, vaginal bleeding, weakness, fever, dyspnea, syncope, headache, dizziness, GI bleed, back pain, seizure, CVA, palpatations, mental health, musculoskeletal)? @ -Differential Abdominal Pain Men: Appendicitis, cholecystitis, diverticulosis, ischemic bowel, pancreatitis, hepatitis, UTI, gastroenteritis, AAA, incarcerated hernia, bowel obstruction, co nstipation, inflammatory bowel, hepatitis, peptic ulcer disease, splenic infarction, perforated viscus, testicular torsion, this is not meant to be an all-inclusive list EKG interpreted by me (3pts min.). @ -As above X-rays interpreted by me (1pt min.). @ -Chest x-ray shows no acute process. CT interpreted by me (1pt min.). @ -Computed tomography scan abdomen pelvis does show some di verticulitis/colitis the sigmoid colon U/S interpreted by me (1pt. min.). @ -None done What testing was considered but not performed or refused? (CT, X-rays, U/S, labs)? Why? @ -None What meds were considered but not given or refused? Why? @ -None Did you discuss the management of the patient with other professionals (professionals i.e. , PA, EX[employer]IVE [employer], lab, RT, psych nurse, social services designee, product development manager, teacher, police officer booking, case management director)? Give summary @ -Case was discussed with Dr. Bailey, who will admit covering Dr. Luque. He recommends no antibiotics at this time until he reviews the case. Was smoking cessation discussed for >3mins.? @ -No Was critical care preformed (if so, how long)? @ -No Were there social determinants of health that impacted care today? How? (Homelessness, low income, unemployed, alcoholism, drug addiction, transportation, low edu. Level, literacy, decrease access to med. care, assisted, rehab)? @ -No Was there de-escalation of care discussed even if they declined (Discuss DNR or withdrawal of care, Hospice)? DNR status @ -No What co-morbidities impacted this encounter? (DM, HTN, Smoking, COPD, CAD, Cancer, CVA, ARF, Chemo, Hep., AIDS, mental health diagnosis, sleep apnea, morbid obesity)? @ -None Was patient admitted / discharged? Hospital course, mention meds given and route, prescriptions, significant lab abnormalities, going to OR and other pertinent info. @ -Patient reevaluated. Patient unable to walk even with his walker. Family is concerned regarding this and ability to take care of him at home. Patient will be admitted. Admission orders written. Antibiotics held at this time per admitting physician request. Undiagnosed new problem with uncertain prognosis? @ -No Drug Therapy requiring intensive monitoring for toxicity (Heparin, Nitro, Insulin, Cardizem)? @ -No Were any procedures done? @ -No Diagnosis/symptom? @ -Diverticulitis Acute, or Chronic, or Acute on Chronic? @ -Acute Uncomplicated (without systemic symptoms) or Complicated (systemic symptoms)? @ -Complicated with weakness Side effects of treatment? @ -No Exacerbation, Progression, or Severe Exacerbation? @ -No Poses a threat to life or bodily function? How? (Chest pain, [place], [place], pneumonia, PE, COPD, DKA, ARF, appy, cholecystitis, CVA, Diverticulitis, Homicidal, Suicidal, threat to staff... and all critical care pts) @ -No (Alberto Hernandez) - Lab Data Lab Results 06/11/23 06/11/23 06/11/23 Range/Units 07:53 07:53 07:53 WBC 6.8 (3.8-10.6) k/uL RBC 4.93 (4.30-5.90) m/uL Hgb 14.6 (13.0-17.5) gm/dL Hct 44.0 (39.0-53.0) % MCV 89.4 (80.0-100.0) fL MCH 29.6 (25.0-35.0) pg MCHC 33.1 (31.0-37.0) g/dL RDW 13.5 (11.5-15.5) % Plt Count 175 (150-450) k/uL MPV 9.1 Neutrophils % 77 % Lymphocytes % 12 % Monocytes % 7 % Eosinophils % 1 % Basophils % 1 % Neutrophils # 5.2 (1.3-7.7) k/uL Lymphocytes # 0.8 L (1.0-4.8) k/uL Monocytes # 0.5 (0-1.0) k/uL Eosinophils # 0.1 (0-0.7) k/uL Basophils # 0.0 (0-0.2) k/uL Sodium 136 L (137-145) mmol/L Potassium 4.0 (3.5-5.1) mmol/L Chloride 100 (98-107) mmol/L Carbon Dioxide 25 (22-30) mmol/L Anion Gap 11 mmol/L BUN 14 (9-20) mg/dL Creatinine 0.68 (0.66-1.25) mg/dL Est GFR (CKD-EPI)AfAm >90 (>60 ml/min/1.73 sqM) Est GFR (CKD-EPI)NonAf >90 (>60 ml/min/1.73 sqM) Glucose 171 H (74-99) mg/dL Plasma Lactic Acid Denzel 1.8 (0.7-2.0) mmol/L Calcium 8.8 (8.4-10.2) mg/dL Total Bilirubin 1.1 (0.2-1.3) mg/dL AST 22 (17-59) U/L ALT 33 (4-49) U/L Alkaline Phosphatase 96 (38-126) U/L Total Protein 6.6 (6.3-8.2) g/dL Albumin 4.0 (3.5-5.0) g/dL Urine Color Urine Appearance (Clear) Urine pH (5.0-8.0) Ur Specific [place] (1.001-1.035) Urine Protein (Negative) Urine Glucose (UA) (Negative) Urine Ketones (Negative) Urine Blood (Negative) Urine Nitrite (Negative) Urine Bilirubin (Negative) Urine Urobilinogen (<2.0) mg/dL Ur Leukocyte Esterase (Negative) Urine RBC (0-5) /hpf Urine WBC (0-5) /hpf Urine Mucus (None) /hpf Influenza Type A (PCR) (Not Detectd) Influenza Type B (PCR) (Not Detectd) RSV (PCR) (Not Detectd) SARS-CoV-2 (PCR) (Not Detectd) 06/11/23 06/11/23 Range/Units 07:53 11:08 WBC (3.8-10.6) k/uL RBC (4.30-5.90) m/uL Hgb (13.0-17.5) gm/dL Hct (39.0-53.0) % MCV (80.0-100.0) fL MCH (25.0-35.0) pg MCHC (31.0-37.0) g/dL RDW (11.5-15.5) % Plt Count (150-450) k/uL MPV Neutrophils % % Lymphocytes % % Monocytes % % Eosinophils % % Basophils % % Neutrophils # (1.3-7.7) k/uL Lymphocytes # (1.0-4.8) k/uL Monocytes # (0-1.0) k/uL Eosinophils # (0-0.7) k/uL Basophils # (0-0.2) k/uL Sodium (137-145) mmol/L Potassium (3.5-5.1) mmol/L Chloride (98-107) mmol/L Carbon Dioxide (22-30) mmol/L Anion Gap mmol/L BUN (9-20) mg/dL Creatinine (0.66-1.25) mg/dL Est GFR (CKD-EPI)AfAm (>60 ml/min/1.73 sqM) Est GFR (CKD-EPI)NonAf (>60 ml/min/1.73 sqM) Glucose (74-99) mg/dL Plasma Lactic Acid Denzel (0.7-2.0) mmol/L Calcium (8.4-10.2) mg/dL Total Bilirubin (0.2-1.3) mg/dL AST (17-59) U/L ALT (4-49) U/L Alkaline Phosphatase (38-126) U/L Total Protein (6.3-8.2) g/dL Albumin (3.5-5.0) g/dL Urine Color Yellow Urine Appearance Cloudy (Clear) Urine pH 8.0 (5.0-8.0) Ur Specific [place] 1.032 (1.001-1.035) Urine Protein 1+ H (Negative) Urine Glucose (UA) Negative (Negative) Urine Ketones Negative (Negative) Urine Blood Negative (Negative) Urine Nitrite Negative (Negative) Urine Bilirubin Negative (Negative) Urine Urobilinogen 2.0 (<2.0) mg/dL Ur Leukocyte Esterase Negative (Negative) Urine RBC 4 (0-5) /hpf Urine WBC 1 (0-5) /hpf Urine Mucus Rare H (None) /hpf Influenza Type A (PCR) Not Detected (Not Detectd) Influenza Type B (PCR) Not Detected (Not Detectd) RSV (PCR) Not Detected (Not Detectd) SARS-CoV-2 (PCR) Not Detected (Not Detectd) Disposition <Gigi Morrow - Last Filed: 06/11/23 07:52> Is patient prescribed a controlled substance at d/c from ED?: No Time of Disposition: 13:30 <Alberto Hernandez - Last Filed: 06/11/23 13:30> Clinical Impression: Diverticulitis, Weakness Disposition: ADMITTED IP TO THIS HOSP Referrals: Vega Luque MD [Primary Care Provider] - 1-2 days
[2023-06-11 08:25] LABS: Basophils % (A) 1 %; Eosinophils # (A) 0.1 k/uL (0-0.7); Eosinophils % (A) 1 %; HGB 14.6 gm/dL (13.0-17.5); Lymphocytes # (A) 0.8 k/uL (1.0-4.8); Lymphocytes % (A) 12 %; MCH 29.6 pg (25.0-35.0); MCHC 33.1 g/dL (31.0-37.0); MCV 89.4 fL (80.0-100.0); Mean Platelet Volume 9.1; Monocytes # (A) 0.5 k/uL (0-1.0); Monocytes % (A) 7 %; Neutrophils # (A) 5.2 k/uL (1.3-7.7); Neutrophils % (A) 77 %; Platelet Count 175 k/uL (150-450); RBC 4.93 m/uL (4.30-5.90); RDW 13.5 % (11.5-15.5); WBC 6.8 k/uL (3.8-10.6)
[2023-06-11 08:47] LABS: ALT 33 U/L (4-49); AST 22 U/L (17-59); African American GFR (CKD) >90 (>60 ml/min/1.73 sqM); Alkaline Phosphatase 96 U/L (38-126); Anion Gap 11 mmol/L; Blood Urea Nitrogen 14 mg/dL (9-20); Calcium 8.8 mg/dL (8.4-10.2); Carbon Dioxide 25 mmol/L (22-30); Chloride 100 mmol/L (98-107); Glucose 171 mg/dL (74-99); Non-African American GFR(CKD) >90 (>60 ml/min/1.73 sqM); Sodium 136 mmol/L (137-145); Total Bilirubin 1.1 mg/dL (0.2-1.3); Total Protein 6.6 g/dL (6.3-8.2)
[2023-06-11] MEDS ORDERED: ACETAMINOPHEN TAB 500 MG TAB PO STA ×2 (09:35→10:55)
--- NOTE | 2023-06-11 10:09 | CT ---
EXAMINATION TYPE: CT abdomen pelvis w con CT DLP: 1524.1 mGycm, Automated exposure control for dose reduction was used. DATE OF EXAM: 06/11/2023 10:02 AM COMPARISON: CT abdomen pelvis most recent from 06/24/2022. CLINICAL INDICATION:Male, 63 years old with history of abp, chills; abd pain TECHNIQUE: Axial CT abdomen pelvis w con;Sagittal and coronal reformats were created on a separate w orkstation. Contrast used:100 mL of Isovue 300 with IV Contrast, (none if empty) Oral contrast used: without Oral Contrast (none if empty) FINDINGS: LOWER CHEST: Unremarkable ABDOMEN LIVER: Unremarkable GALLBLADDER AND BILE DUCTS: Unremarkable. PANCREAS: Unremarkable. SPLEEN: Unremarkable. ADRENAL GLANDS: Unremarkable. KIDNEYS AND URETERS: No evidence of hydronephrosis or renal calculus. The ureters are unremarkable. Simple appearing left renal cyst. PELVIS BLADDER: Unremarkable REPRODUCTIVE: Unremarkable. ABDOMEN & PELVIS STOMACH AND BOWEL: No evidence of bowel obstruction. Wall thickening of the sigmoid colon measuring u p to 18 mm. Short segment measuring up to 5.7 cm. There are scattered colonic diverticula in this reg ion. No organizing fluid collections or free air. PERITONEUM/RETROPERITONEUM: No evidence of pneumoperitoneum or free fluid. Ventriculoperitoneal shunt tubing terminates in the pelvis. VASCULATURE: No evidence of aortic aneurysm. Atherosclerosis of the arterial vasculature. MUSCULOSKELETAL: No acute osseous abnormalities. Moderate disc degeneration changes are present throu ghout the thoracolumbar spine., bilateral hip arthroplasties with streak artifact. Hardware appears i ntact. LYMPH NODES: No gross evidence for lymphadenopathy. SOFT TISSUE/ABDOMINAL WALL: Unremarkable IMPRESSION: Colitis/diverticulitis involving the sigmoid colon. No free air or organizing fluid collection. Colon oscopy there is recommended to exclude underlying malignancy after resolution of symptoms.
--- NOTE | 2023-06-11 10:47 | XR ---
EXAMINATION TYPE: XR chest 2V DATE OF EXAM: 06/11/2023 10:18 AM CLINICAL INDICATION:Male, 63 years old with history of chills; COMPARISON: Chest radiographs from 06/05/2022. TECHNIQUE: XR chest 2V Frontal and lateral views of the chest. FINDINGS: Lungs/Pleura: There is no evidence of pleural effusion, focal consolidation, or pneumothorax. Pulmonary vascularity: Unremarkable. Heart/mediastinum: Cardiomediastinal silhouette is unremarkable. Musculoskeletal: No acute osseous pathology. Other findings: None Lines/Tubes: Ventriculoperitoneal shunt tubing noted along the right aspect of the radiograph. IMPRESSION: No acute cardiopulmonary disease/process.
[2023-06-11 12:08] LABS: Appearance,Urine Cloudy (Clear); Bilirubin,Urine Negative (Negative); Blood,Urine Negative (Negative); Color,Urine Yellow; Glucose,Urine (UA) Negative (Negative); Ketones,Urine Negative (Negative); Leukocyte Esterase,Urine Negative (Negative); Mucus,Urine Rare /hpf; Nitrite,Urine Negative (Negative); Protein,Urine 1+ (Negative); RBC,Urine 4 /hpf (0-5); Specific Gravity,Urine 1.032 (1.001-1.035); WBC,Urine 1 /hpf (0-5)
[2023-06-11] MEDS ORDERED: DICYCLOMINE 10 MG CAP PO PRN (13:10)
[2023-06-11] MEDS ORDERED: HYDROcodone/APAP 5-325MG 1 EACH TAB PO PRN (13:16)
[2023-06-11] MEDS ORDERED: ONDANSETRON 4 MG/2 ML VIAL IVP PRN (13:16)
[2023-06-11] MEDS ORDERED: NALOXONE 0.4 MG/ML 1 ML VIAL IV PRN (13:16)
[2023-06-11] MEDS ORDERED: ACETAMINOPHEN TAB 325 MG TAB PO PRN (13:16)
[2023-06-11] MEDS ORDERED: DEXTROSE 50% SYRINGE 50 ML IVP PRN ×2 (13:17)
[2023-06-11] MEDS: SODIUM CHLORIDE 0.9% 1,000 ML IV SCH (15:58)
--- NOTE | 2023-06-11 16:27 | P.HPIM ---
History of Present Illness H&P Date: 06/11/23 63-year-old male with PMH of CVA with left-sided residual deficits, hypertension, dyslipidemia, HUMAIRA, diabetes mellitus presents the ED for generalized weakness. Ongoing for the past 2 days. He reports being unable to stand up. Denies abdominal pain, N/V, fever or chills. No dysuria. No cough, chest pain or SOB. In the ED, he underwent extensive evaluation. Tachycardic with heart rate in the low 100s. CBC was unremarkable. CMP showed sodium 136, glucose 171. Lactic acid 1.8. Urinalysis 1+ protein. COVID-19, RSV, influenza negative. CT AP showed findings of colitis/diverticulitis. Chest x-ray no acute process. Patient is admitted for further management of symptoms. General: non toxic, no distress, appears at stated age Derm: warm, dry Head: atraumatic, normocephalic, symmetric Eyes: EOMI, no lid lag, anicteric sclera Mouth: no lip lesion, mucus membranes moist Cardiovascular: S1S2 reg, no murmur Lungs: CTA bilateral, no rhonchi, no rales , no accessory muscle use Abdominal: soft, nontender to palpation, no guarding, no appreciable organomegaly Ext: no gross muscle atrophy, no edema, no contractures Neuro: Chronic left sided weakness, decreased sensation to touch. Psych: Alert, oriented, appropriate affect Based on my assessment of this patient, this patient meets a high complexity level of care. Patient has an acute diagnosis of diverticulitis that poses a threat to life or bodily function. Diverticulitis: Recurrent. Start Rocephin 2g IV QD and Flagyl 500 mg PO TID. B entyl 10 mg PO TID PRN for pain. Outpatient C-scope to rule out colon CA. CVA with left-sided residual deficits: ASA 81 mg PO QD. Lipitor 40 mg PO QHS. Hypertension: Metoprolol 75 mg PO BID. Dyslipidemia: Lipitor as above. HUMAIRA: CPAP QHS. Diabetes mellitus: ISS. Accuchecks ACHS. Hypoglycemic precautions. CODE STATUS: FULL CODE DVT Prophylaxis: Lovenox SQ GI Prophylaxis: Pepcid. Designated medical POA if patient is not able to make medical decisions for themselves: I have reviewed the following cisco consultant notes: I have reviewed the results of the following tests: As above. I have ordered the following tests: I have discussed the care of this patient with the following independent histori an: I have independently interpreted the following test below: CT AP. I have discussed the management of this patient with the following physician: Past Medical History Past Medical History: CVA/TIA, Hyperlipidemia, Hypertension, Musculoskeletal Disorder, Sleep Apnea/CPAP/BIPAP Additional Past Medical History / Comment(s): uses CPAP, kidney stones, garbled speech History of Any Multi-Drug Resistant Organisms: None Reported Past Surgical History: Back Surgery, Heart Catheterization, Joint Replacement, Orthopedic Surgery Additional Past Surgical History / Comment(s): Total R hip arthroplasty 06/14/17, total l hip arthroplasty 2 years ago, CERVICAL SURGERY WITH PLATE, URETHRA SURGERY, [facility] PROCEDURES Past Anesthesia/Blood Transfusion Reactions: No Reported Reaction Additional Past Anesthesia/Blood Transfusion Reaction / Comment(s): No history of blood transfusion. Past Psychological History: No Psychological Hx Reported Additional Psychological History / Comment(s): Pt resides with his spouse. He is independent with walker. Smoking Status: Never smoker Past Alcohol Use History: None Reported Additional Past Alcohol Use History / Comment(s): QUIT 2004,STARTED 1976. SMOKED 2PPD. Past Drug Use History: None Reported - Past Family History Mother Family Medical History: Cancer Additional Family Medical History / Comment(s): lung cancer Father Family Medical History: Myocardial Infarction ([place]) Additional Family Medical History / Comment(s): Father is 76 yrs old. Medications and Allergies Home Medications Medication Instructions Recorded Confirmed Type Atorvastatin [Lipitor] 40 mg PO DIRECTED 01/13/21 06/11/23 History Metoprolol Tartrate [Lopressor] 75 mg PO DIRECTED 01/13/21 06/11/23 History Umeclidinium Brm/Vilanterol Tr 1 puff INHALATION DIRECTED 01/13/21 06/11/23 History [Anoro Ellipta 62.5-25 Mcg INH] metFORMIN HCL ER [Glucophage XR] 500 mg PO DIRECTED 01/13/21 06/11/23 History Citalopram Hydrobromide 20 mg PO DIRECTED 03/09/22 06/11/23 History [Citalopram HBr] Multivit-Min/FA/Lycopen/Lutein 1 tab PO HS 06/11/23 06/11/23 History [Centrum Silver Tablet] lisinopriL [Zestril] 10 mg PO DIRECTED 06/11/23 06/11/23 History Allergies Allergy/AdvReac Type Severity Reaction Status Date / Time No Known Allergies Allergy Verified 06/11/23 07:52 Physical Exam Vitals: Vital Signs Temp Pulse Pulse Resp BP BP Pulse Ox 06/11/23 15:45 97.8 F 93 16 152/90 93 L 06/11/23 15:33 98.1 F 82 20 130/68 98 06/11/23 13:30 98.2 F 81 17 134/88 98 06/11/23 10:00 83 17 133/87 97 06/11/23 07:47 98 F 104 H 18 138/100 94 L Intake and Output 06/11/23 06/11/23 06/11/23 06:59 14:59 22:59 Other: Weight 95.254 kg 95.254 kg Results CBC & Chem 7: 06/11/23 07:53 06/11/23 07:53 Labs: Abnormal Lab Results - Last 24 Hours (Table) 06/11/23 06/11/23 06/11/23 Range/Units 07:53 07:53 11:08 Lymphocytes # 0.8 L (1.0-4.8) k/uL Sodium 136 L (137-145) mmol/L Glucose 171 H (74-99) mg/dL Urine Protein 1+ H (Negative) Urine Mucus Rare H (None) /hpf
[2023-06-11 17:35] LABS: Glucose,Whole Blood 150 mg/dL (70-110)
[2023-06-11] MEDS: INSULIN ASPART (NovoLOG) 100 UNIT/ML VIAL SQ SCH ×2 (17:36→21:14)
[2023-06-11] MEDS: metroNIDAZOLE 500 MG TAB PO SCH (17:59)
[2023-06-11 18:07] VITALS: RESP 16
[2023-06-11] MEDS: METOPROLOL TARTRATE 25 MG TAB PO SCH (18:33)
[2023-06-11 20:40] LABS: Glucose,Whole Blood 208 mg/dL (70-110)
[2023-06-11] MEDS ORDERED: CITALOPRAM HYDROBROMIDE 20 MG TAB PO SCH (21:00)
[2023-06-11] MEDS ORDERED: ATORVASTATIN 40 MG TAB PO SCH (21:00)
[2023-06-11] MEDS: FAMOTIDINE 20 MG TAB PO SCH (21:14)
[2023-06-12] MEDS: SODIUM CHLORIDE 0.9% 1,000 ML IV SCH (04:18)
[2023-06-12 05:39] LABS: Glucose,Whole Blood 137 mg/dL (70-110)
[2023-06-12] MEDS: INSULIN ASPART (NovoLOG) 100 UNIT/ML VIAL SQ SCH ×2 (05:40→12:39)
[2023-06-12] MEDS: metroNIDAZOLE 500 MG TAB PO SCH ×2 (05:40→12:39)
[2023-06-12 07:56] VITALS: BP 136/86; PULSE 83; TEMP 97.9
[2023-06-12] MEDS: FAMOTIDINE 20 MG TAB PO SCH (08:49)
[2023-06-12] MEDS: METOPROLOL TARTRATE 25 MG TAB PO SCH (08:49)
[2023-06-12] MEDS ORDERED: ENOXAPARIN 40 MG/0.4 ML SYRINGE SQ SCH (09:00)
[2023-06-12] MEDS ORDERED: ASPIRIN 81 MG PO SCH (09:00)
[2023-06-12 10:26] LABS: Basophils # (A) 0.04 X 10*3/uL (0.00-0.10); Basophils % (A) 0.7 %; Eosinophils # (A) 0.08 X 10*3/uL (0.04-0.35); Eosinophils % (A) 1.3 %; HCT 43.9 % (39.6-50.0); Lymphocytes # (A) 0.93 X 10*3/uL (0.90-5.00); Lymphocytes % (A) 15.5 %; MCH 29.1 pg (27.0-32.0); MCHC 31.9 g/dL (32.0-37.0); MCV 91.3 FL (80.0-97.0); Mean Platelet Volume 11.3 FL (9.5-12.2); Monocytes # (A) 0.79 X 10*3/uL (0.20-1.00); Monocytes % (A) 13.2 %; NRBC Per 100 WBC 0 X 10*3/uL (0.00-0.01); Neutrophils # (A) 4.13 X 10*3/uL (1.80-7.70); Neutrophils % (A) 68.8 %; Platelet Count 160 X 10*3/uL (140-440); RBC 4.81 X 10*6/uL (4.40-5.60); RDW 13.8 % (11.5-14.5)
[2023-06-12 10:35] LABS: ALT 38 U/L (10-49); AST 21 U/L (14-35); Albumin 3.8 g/dL (3.8-4.9); Alkaline Phosphatase 83 U/L (41-126); BUN/Creat Ratio 16.62 Ratio (12.00-20.00); Blood Urea Nitrogen 13.3 mg/dL (9.0-27.0); Calcium 8.6 mg/dL (8.7-10.3); Carbon Dioxide 29.2 mmol/L (21.6-31.8); Chloride 103 mmol/L (96-109); Glucose 156 mg/dL (70-110); Potassium 4.1 mmol/L (3.5-5.5); Sodium 141 mmol/L (135-145); Total Bilirubin 0.8 mg/dL (0.3-1.2); Total Protein 5.8 g/dL (6.2-8.2)
--- NOTE | 2023-06-12 11:39 | XR ---
EXAMINATION TYPE: XR chest 1V portable DATE OF EXAM: 06/12/2023 11:21 AM CLINICAL INDICATION:Male, 63 years old with history of SOB; [facility] COMPARISON: Chest radiographs from 06/11/2023. TECHNIQUE: XR chest 1V portable Frontal view of the chest. FINDINGS: Lungs/Pleura: There is no evidence of pleural effusion, focal consolidation, or pneumothorax. Pulmonary vascularity: Unremarkable. Heart/mediastinum: Cardiomediastinal silhouette is unremarkable. Musculoskeletal: No acute osseous pathology. There is fixation hardware in the lower cervical spine. Other findings: None Lines/Tubes: Ventriculoperitoneal shunt tubing noted along the right aspect of the radiograph. IMPRESSION: Low lung volumes with a generalized hazy appearance which could represent atelectasis versus pulmonar y edema correlate with serum BNP.
--- NOTE | 2023-06-12 12:05 | P.PN ---
Subjective Progress Note Date: 06/12/23 63-year-old male with PMH of CVA with left-sided residual deficits, hypertension, dyslipidemia, HUMAIRA, diabetes mellitus presents the ED for generalized weakness. Ongoing for the past 2 days. He reports being unable to stand up. Denies abdominal pain, N/V, fever or chills. No dysuria. No cough, chest pain or SOB. In the ED, he underwent extensive evaluation. Tachycardic with heart rate in the low 100s. CBC was unremarkable. CMP showed sodium 136, glucose 171. Lactic acid 1.8. Urinalysis 1+ protein. COVID-19, RSV, influenza negative. CT AP showed findings of colitis/diverticulitis. Chest x-ray no acute process. Patient spiked a fever of 102.5F around 6PM last night and became tachycardic any hypoxic. EKG sinus tachycardia. Started on Rocephin and Flagyl for colitis. Blood cultures collected. 06/12 Patient was seen and examined. Appears comfortable. Reports no complaints. Currently on 3L NC saturating 96%. CBC unremarkable. BMP glu 156, Ca 8.6, total protein 5.8. CXR done today shows no acute findings. General: non toxic, no distress, appears at stated age Derm: warm, dry Head: atraumatic, normocephalic, symmetric Eyes: EOMI, no lid lag, anicteric sclera Mouth: no lip lesion, mucus membranes moist Cardiovascular: S1S2 reg, no murmur Lungs: CTA bilateral, no rhonchi, no rales , no accessory muscle use Abdominal: soft, nontender to palpation, no guarding, no appreciable organomegaly Ext: no gross muscle atrophy, no edema, no contractures Neuro: Chronic left sided weakness, decreased sensation to touch. Psych: Alert, oriented, appropriate affect Based on my assessment of this patient, this patient meets a high complexity level of care. Patient has an acute diagnosis of diverticulitis that poses a threat to life or bodily function. Sepsis related to Diverticulitis: Recurrent. Rocephin 2g IV QD and Flagyl 500 mg PO TID. Bentyl 10 mg PO TID PRN for pain. Outpatient C-scope to rule out colon CA. Follow BCx. Telemetry monitoring. CVA with left-sided residual deficits: ASA 81 mg PO QD. Lipitor 40 mg PO QHS. Hypertension: Metoprolol 75 mg PO BID. Dyslipidemia: Lipitor as above. HUMAIRA: CPAP QHS. Diabetes mellitus: ISS. Accuchecks ACHS. Hypoglycemic precautions. CODE STATUS: FULL CODE DVT Prophylaxis: Lovenox SQ GI Prophylaxis: Pepcid. Designated medical POA if patient is not able to make medical decisions for themselves: I have reviewed the following commercial sales consultant notes: I have reviewed the results of the following tests: CBC, BMP. I have ordered the following tests: BCx. I have discussed the care of this patient with the following independent historian: I have independently interpreted the following test below: EKG. CXR. I have discussed the management of this patient with the following physician: Objective - Vital Signs Vital signs: Vital Signs Temp 97.9 F 06/12/23 07:00 Pulse 83 06/12/23 07:00 Resp 16 06/12/23 07:00 BP 136/86 06/12/23 07:00 Pulse Ox 96 06/12/23 07:36 FiO2 Intake & Output 06/11/23 06/12/23 06/12/23 18:59 06:59 18:59 Intake Total 118 Output Total 225 240 Balance -225 -122 Weight 95.254 kg Intake: Oral 118 Output: Urine 225 240 Other: Voiding Method Urinal Urinal Urinal # Voids 1 - Labs CBC & Chem 7: 06/12/23 04:32 06/12/23 04:32 Labs: Abnormal Lab Results - Last 24 Hours (Table) 06/11/23 06/11/23 06/11/23 Range/Units 11:08 17:33 20:39 MCHC (32.0-37.0) g/dL Glucose (70-110) mg/dL POC Glucose (mg/dL) 150 H 208 H (70-110) mg/dL Calcium (8.7-10.3) mg/dL Total Protein (6.2-8.2) g/dL Urine Protein 1+ H (Negative) Urine Mucus Rare H (None) /hpf 06/12/23 06/12/23 06/12/23 Range/Units 04:32 04:32 05:37 MCHC 31.9 L (32.0-37.0) g/dL Glucose 156 H (70-110) mg/dL POC Glucose (mg/dL) 137 H (70-110) mg/dL Calcium 8.6 L (8.7-10.3) mg/dL Total Protein 5.8 L (6.2-8.2) g/dL Urine Protein (Negative) Urine Mucus (None) /hpf
--- NOTE | 2023-06-12 12:15 | P.DS ---
Providers Date of admission: 06/11/23 13:16 Expected date of discharge: 06/12/23 Attending physician: Jose Angel Quinn MD Primary care physician: [facility] Course: 63-year-old male with PMH of CVA with left-sided residual deficits, hypertension, dyslipidemia, HUMAIRA, diabetes mellitus presents the ED for generalized weakness. Ongoing for the past 2 days. He reports being unable to stand up. Denies abdominal pain, N/V, fever or chills. No dysuria. No cough, chest pain or SOB. In the ED, he underwent extensive evaluation. Tachycardic with heart rate in the low 100s. CBC was unremarkable. CMP showed sodium 136, glucose 171. Lactic acid 1.8. Urinalysis 1+ protein. COVID-19, RSV, influenza negative. CT AP showed findings of colitis/diverticulitis. Chest x-ray no acute process. Patient spiked a fever of 102.5F around 6PM last night and became tachycardic any hypoxic. EKG sinus tachycardia. Started on Rocephin and Flagyl for colitis. Blood cultures collected. 06/12 Patient was seen and examined. Appears comfortable. Reports no complaints. 3L NC saturating 96% weaned off oxygen. CBC unremarkable. BMP glu 156, Ca 8.6, total protein 5.8. CXR done today shows no acute findings. His fever and intermitted bouts of tachycardia is likely related to Diverticulitis. He was able to ambulate the hallway comfortably as witnessed by the spouse and was requesting discharge home. We will prescribe 5 days of Ceftin and Flagyl to complete a total of 7 days antibiotics. Advised to follow up with PCP within 1-2 days of discharge. He will need a C-scope at a later time to rule out colon CA which was verbalized to him. Pertinent studies as above. General: non toxic, no distress, appears at stated age Derm: warm, dry Head: atraumatic, normocephalic, symmetric Eyes: EOMI, no lid lag, anicteric sclera Mouth: no lip lesion, mucus membranes moist Cardiovascular: S1S2 reg, no murmur Lungs: CTA bilateral, no rhonchi, no rales , no accessory muscle use Abdominal: soft, nontender to palpation, no guarding, no appreciable organomegaly Ext: no gross muscle atrophy, no edema, no contractures Neuro: Chronic left sided weakness, decreased sensation to touch. Psych: Alert, oriented, appropriate affect Discharge Diagnosis: Sepsis related to Diverticulitis CVA with left-sided residual deficits Hypertension Dyslipidemia HUMAIRA Diabetes mellitus This complex discharge took 35 minutes to complete. Plan - Discharge Summary New Discharge Prescriptions: New Aspirin 81 mg PO DAILY tab Cefuroxime [Ceftin] 250 mg PO BID 5 Days #10 tab metroNIDAZOLE [Flagyl] 500 mg PO TID-W/MEALS #15 tab Acetaminophen Tab [Tylenol] 650 mg PO Q6HR PRN tab PRN Reason: Mild Pain Or Fever > 100.5 Continue metFORMIN HCL ER [Glucophage XR] 500 mg PO DIRECTED Umeclidinium Brm/Vilanterol Tr [Anoro Ellipta 62.5-25 Mcg INH] 1 puff INHALATION DIRECTED Atorvastatin [Lipitor] 40 mg PO DIRECTED Metoprolol Tartrate [Lopressor] 75 mg PO DIRECTED Citalopram Hydrobromide [Citalopram HBr] 20 mg PO DIRECTED lisinopriL [Zestril] 10 mg PO DIRECTED Multivit-Min/FA/Lycopen/Lutein [Centrum Silver Tablet] 1 tab PO HS Discharge Medication List Atorvastatin [Lipitor] 40 mg PO DIRECTED 01/13/21 [History] Metoprolol Tartrate [Lopressor] 75 mg PO DIRECTED 01/13/21 [History] Umeclidinium Brm/Vilanterol Tr [Anoro Ellipta 62.5-25 Mcg INH] 1 puff INHALATION DIRECTED 01/13/21 [History] metFORMIN HCL ER [Glucophage XR] 500 mg PO DIRECTED 01/13/21 [History] Citalopram Hydrobromide [Citalopram HBr] 20 mg PO DIRECTED 03/09/22 [History] Multivit-Min/FA/Lycopen/Lutein [Centrum Silver Tablet] 1 tab PO HS 06/11/23 [History] lisinopriL [Zestril] 10 mg PO DIRECTED 06/11/23 [History] Acetaminophen Tab [Tylenol] 650 mg PO Q6HR PRN tab 06/12/23 [Rx] Aspirin 81 mg PO DAILY tab 06/12/23 [Rx] Cefuroxime [Ceftin] 250 mg PO BID 5 Days #10 tab 12/24/23 [Rx] metroNIDAZOLE [Flagyl] 500 mg PO TID-W/MEALS #15 tab 06/12/23 [Rx] Follow up Appointment(s)/Referral(s): Vega Luque MD [Primary Care Provider] - 1-2 days
== END 2023-06-12 14:32 | disposition home or self-care (01) ==
LOC: EC 07:41 → 6NMEDSUR 13:16
PROVIDERS: ADMIT Student in an Organized Health Care Education/Training Program; ATTEND Student in an Organized Health Care Education/Training Program
DX: A41.9 Sepsis, unspecified organism (principal); R65.20 Severe sepsis without septic shock; E78.5 Hyperlipidemia, unspecified; G47.33 Obstructive sleep apnea (adult) (pediatric); I10 Essential (primary) hypertension; I25.10 Atherosclerotic heart disease of native coronary artery without angina pectoris; Z79.84 Long term (current) use of oral hypoglycemic drugs; Z79.82 Long term (current) use of aspirin; Z82.49 Family history of ischemic heart disease and other diseases of the circulatory system; Z80.1 Family history of malignant neoplasm of trachea, bronchus and lung; Z87.442 Personal history of urinary calculi; Z96.643 Presence of artificial hip joint, bilateral; Z79.899 Other long term (current) drug therapy
CPT/HCPCS: 96361 ×2; 96365; 96372; 96366; 99291; 36415; 94760; 80053 ×2; 83605; 85025 ×2; 81001; 87040; 83036; 87636; 71045; 71046; 74177; G0378 ×2; J0696 ×2; J1650; Q9967

== ENCOUNTER → 2023-07-14 | Outpatient (CLI) | payer MEDICARE | LOC: 3 N SLEEP 11:07 | PROVIDERS: ATTEND Internal Medicine | DX: G47.33 Obstructive sleep apnea (adult) (pediatric) (principal); Z87.891 Personal history of nicotine dependence | CPT/HCPCS: 99212 ==

== ENCOUNTER → 2023-10-28 | Outpatient (CLI) | payer MEDICARE ==
[2023-10-28 11:15] LABS: ALT 22 U/L (10-49); AST 15 U/L (14-35); Albumin 4.2 g/dL (3.8-4.9); Alkaline Phosphatase 96 U/L (41-126); BUN/Creat Ratio 16.38 Ratio (12.00-20.00); Blood Urea Nitrogen 13.1 mg/dL (9.0-27.0); Calcium 9.1 mg/dL (8.7-10.3); Carbon Dioxide 28.5 mmol/L (21.6-31.8); Chloride 104 mmol/L (96-109); Chol/HDL Ratio 3.59 Ratio; Globulin 2.1 g/dL (1.6-3.3); Glucose 187 mg/dL (70-110); LDL Cholesterol,Calculated 40.6 mg/dL (0.0-131.0); Sodium 144 mmol/L (135-145); Total Bilirubin 0.6 mg/dL (0.3-1.2); Total Protein 6.3 g/dL (6.2-8.2)
[2023-10-28 14:31] LABS: Basophils # (A) 0.05 X 10*3/uL (0.00-0.10); Basophils % (A) 0.8 %; Eosinophils # (A) 0.15 X 10*3/uL (0.04-0.35); Eosinophils % (A) 2.5 %; HCT 42.6 % (39.6-50.0); HGB 13.5 g/dL (13.0-17.0); Lymphocytes % (A) 25.4 %; MCH 28.5 pg (27.0-32.0); MCHC 31.7 g/dL (32.0-37.0); MCV 89.9 FL (80.0-97.0); Mean Platelet Volume 11.5 FL (9.5-12.2); Monocytes % (A) 6.8 %; NRBC Per 100 WBC 0 X 10*3/uL (0.00-0.01); Neutrophils # (A) 3.79 X 10*3/uL (1.80-7.70); Neutrophils % (A) 64.2 %; Platelet Count 193 X 10*3/uL (140-440); RBC 4.74 X 10*6/uL (4.40-5.60); RDW 13.3 % (11.5-14.5); WBC 5.91 X 10*3/uL (4.50-10.00)
== END | disposition home or self-care (01) ==
LOC: LABWHC1 07:12
PROVIDERS: ATTEND Family Medicine
DX: E11.29 Type 2 diabetes mellitus with other diabetic kidney complication (principal)
CPT/HCPCS: 36415; 80053; 80061; 82043; 82570; 83036; 84443; 85025

== ENCOUNTER → 2024-02-23 | Outpatient (CLI) | payer MEDICARE ==
[2024-02-23 11:37] VITALS: BP 145/92; PULSE 69; RESP 14; TEMP 98
--- NOTE | 2024-02-23 12:14 | P.PROGSL ---
Subjective DATE: 02/23/2024 FOLLOW UP VISIT. Patient with obstructive sleep apnea hypopnea syndrome return to sleep center for follow-up visit. Information from previous visit have been reviewed. Patient is using PAP equipment every night for the whole night, getting PAP supplies in time. The patient does not have significant problems with the mask, PAP unit and humidification. [place] sleepiness scale is 6, which is normal. I checked information from PAP unit. PAP unit pressure 5-16, average 13.7 cm H2O. Usage is 100% for more then 4 hours, average 7.5 hours per night. Leak is 20.8 l/m, which is in acceptable range. Apnea Hypopnea Index is slightly increased to 6.5. MEDICATIONS have been reviewed, please see below. During physical exam: GENERAL: A pleasant patient without any distress, on wheelchair. VITAL SIGNS: Please see below, weight is 208.8 lbs. HEENT: PERRLA, EOMI.low position of soft palate, Mallapati 3 . NECK: Supple. No JVD. LUNGS: Clear to percussion and to auscultation. Good air exchange. No wheezing or rhonchi. HEART: S1, S2 regular. ABDOMEN: Soft and nontender. Obese EXTREMITIES: No clubbing or cyanosis. 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 Slight changes of speech. Some weakness on the left side. Impressions: 1. Obstructive sleep apnea-hypopnea syndrome. Patient demonstrated great compliance with treatment, benefiting from treatment. 2. Hypertension. 3. History of stroke in 2019 with residual changes of the speech and some left- sided weakness. 4. History of hydrocephalus, status post NC MACHINIST shunt. 5. History of cerebral aneurysm. 6. Status post bilateral hip replacement. 7. Status post cervical fusion. 8. Status post tonsillectomy and uvulopalatopharyngoplasty. 9. Obesity. I changed pressure in CPAP unit to the range 5 to 17 cm of water. Plan: 1. Continue using PAP equipment every night for the whole night. 2. Sleep hygiene with regular time in bed for at least 7.5-8 hours 3. PAP unit should stay lower then position of the head. 4. Advised patient to remove all remaining water from humidifier canister daily and make it dry after each usage. Refill canister with fresh distilled water before each usage. 5. Watching and losing weight. 6. Precautions related to driving. No driving if feel any sleepiness. 7. I will maintain prescription for PAP supplies including mask, tube, filters. 8. Follow up visit in 6-8 months or earlier if patient has any problems. Thank you very much for allowing me to participate in the management of your patient. Jourdan Baker MD, PhD, FAASM. Diplomat of [place] [employer], Sleep Medicine Board by [place] [employer] [facility] [place] cc: Esau Garcia MD Objective - Vital Signs Vital Signs: Vital Signs Temp 98.0 F 02/23/24 11:36 Pulse 69 02/23/24 11:36 Resp 14 02/23/24 11:36 BP 145/92 02/23/24 11:36 Pulse Ox 93 L 02/23/24 11:36 FiO2 Intake & Output 02/22/24 02/23/24 02/23/24 18:59 06:59 18:59 Weight 94.574 kg Home Medications: Home Medications Medication Instructions Recorded Confirmed Type Atorvastatin [Lipitor] 40 mg PO DIRECTED 01/13/21 02/23/24 History Metoprolol Tartrate [Lopressor] 75 mg PO BID 01/13/21 02/23/24 History Umeclidinium Brm/Vilanterol Tr 1 puff INHALATION DIRECTED 01/13/21 02/23/24 History [Anoro Ellipta 62.5-25 Mcg INH] metFORMIN HCL ER [Glucophage XR] 500 mg PO DIRECTED 01/13/21 02/23/24 History Citalopram Hydrobromide 20 mg PO DIRECTED 03/09/22 02/23/24 History [Citalopram HBr] Multivit-Min/FA/Lycopen/Lutein 1 tab PO HS 06/11/23 02/23/24 History [Centrum Silver Tablet] lisinopriL [Zestril] 10 mg PO DIRECTED 06/11/23 02/23/24 History Acetaminophen Tab [Tylenol] 650 mg PO Q6HR PRN tab 06/12/23 Rx Aspirin 81 mg PO DAILY tab 06/12/23 Rx Cefuroxime [Ceftin] 250 mg PO BID 5 Days #10 tab 06/12/23 Rx metroNIDAZOLE [Flagyl] 500 mg PO TID-W/MEALS #15 tab 06/12/23 Rx
== END ==
LOC: 3 N SLEEP 11:02
PROVIDERS: ATTEND Internal Medicine
CPT/HCPCS: 99212

== ENCOUNTER → 2024-05-07 | Outpatient (CLI) | payer MEDICARE ==
[2024-05-07 10:36] LABS: ALT 24 U/L (10-49); AST 14 U/L (14-35); Albumin 4.1 g/dL (3.8-4.9); Albumin/Globulin Ratio 2.05 Ratio (1.60-3.17); Alkaline Phosphatase 96 U/L (41-126); BUN/Creat Ratio 20.86 Ratio (12.00-20.00); Blood Urea Nitrogen 14.6 mg/dL (9.0-27.0); Carbon Dioxide 27.9 mmol/L (21.6-31.8); Chloride 103 mmol/L (96-109); Chol/HDL Ratio 3.94 Ratio; Glucose 175 mg/dL (70-110); LDL Cholesterol,Calculated 37.8 mg/dL (0.0-131.0); Potassium 4.1 mmol/L (3.5-5.5); Prostate Specific Antigen 1.47 ng/mL (0.000-4.500); Sodium 142 mmol/L (135-145); Total Bilirubin 0.5 mg/dL (0.3-1.2); Total Protein 6.1 g/dL (6.2-8.2)
== END | disposition home or self-care (01) ==
LOC: LABWHC1 07:23
PROVIDERS: ATTEND Family Medicine
DX: Z12.5 Encounter for screening for malignant neoplasm of prostate (principal); E11.21 Type 2 diabetes mellitus with diabetic nephropathy
CPT/HCPCS: 36415; 80053; 80061; 83036; 84153

== ENCOUNTER → 2024-10-18 | Outpatient (CLI) | payer MEDICARE ==
[2024-10-18 10:55] VITALS: BP 151/94; PULSE 68; RESP 16; TEMP 98
--- NOTE | 2024-10-18 12:40 | P.PROGSL ---
Subjective DATE: 10/18/2024 FOLLOW UP VISIT. Patient with obstructive sleep apnea hypopnea syndrome return to sleep center for follow-up visit. Information from previous visit have been reviewed. Patient is using PAP equipment every night for the whole night, getting PAP supplies in time. The patient does not have significant problems with the mask, PAP unit and humidification. [place] sleepiness scale is 4, which is normal. I checked information from PAP unit. PAP unit pressure 5-17, average 15 cm H2O. Usage is 100% for more then 4 hours, average 7.7 hours per night. Leak is 20 l/m, which is in acceptable range. Apnea Hypopnea Index is 5.6, which is normal. MEDICATIONS have been reviewed, please see below. During physical exam: GENERAL: A pleasant patient without any distress. VITAL SIGNS: Please see below, weight is 216 lbs. HEENT: PERRLA, EOMI.low position of soft palate, Mallapati 3. NECK: Supple. No JVD. LUNGS: Clear to percussion and to auscultation. Good air exchange. No wheezing or rhonchi. HEART: S1, S2 regular. ABDOMEN: Soft and nontender. EXTREMITIES: No clubbing or cyanosis. 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 No focal deficit. Impressions: 1. Obstructive sleep apnea-hypopnea syndrome. Patient demonstrated great compliance with treatment, benefiting from treatment. 2. Hypertension. 3. History of stroke in 2019 with residual changes of the speech and left-sided weakness. 4. History of hydrocephalus, status post PIPING DRAFTER shunt. 5. History of cerebral aneurysm. 6. Status post bilateral hip replacement. 7. Status post cervical fusion. 8. Status post tonsillectomy and uvulopalatopharyngoplasty. 9. Obesity, BMI 34.8, patient increased weight on 8 pounds comparing with previous visit. Plan: 1. Continue using PAP equipment every night for the whole night. 2. Sleep hygiene with regular time in bed for at least 7.5-8 hours 3. PAP unit should stay lower then position of the head. 4. Advised patient to remove all remaining water from humidifier canister daily and make it dry after each usage. Refill canister with fresh distilled water before each usage. 5. Watching weight. 6. Precautions related to driving. No driving if feel any sleepiness. 7. I will maintain prescription for PAP supplies including mask, tube, filters. 8. Follow up visit in 8 months or earlier if patient has any problems. Thank you very much for allowing me to participate in the management of your patient. Jourdan Baker MD, PhD, FAASM. Diplomat of [place] [employer], Sleep Medicine Board by [employer] [employer] [facility] [place] Objective - Vital Signs Vital Signs: Vital Signs Temp 98 F 10/18/24 10:50 Pulse 68 10/18/24 10:50 Resp 16 10/18/24 10:50 BP 151/94 10/18/24 10:50 Pulse Ox 92 L 10/18/24 10:50 FiO2 Intake & Output 10/17/24 10/18/24 10/18/24 18:59 06:59 18:59 Weight 97.976 kg Home Medications: Home Medications Medication Instructions Recorded Confirmed Type Atorvastatin [Lipitor] 40 mg PO DIRECTED 01/13/21 10/18/24 History Metoprolol Tartrate [Lopressor] 75 mg PO BID 01/13/21 10/18/24 History Umeclidinium Brm/Vilanterol Tr 1 puff INHALATION DIRECTED 01/13/21 10/18/24 History [Anoro Ellipta 62.5-25 Mcg INH] metFORMIN HCL ER [Glucophage XR] 500 mg PO DIRECTED 01/13/21 10/18/24 History Citalopram Hydrobromide 20 mg PO DIRECTED 03/09/22 10/18/24 History [Citalopram HBr] Multivit-Min/FA/Lycopen/Lutein 1 tab PO HS 06/11/23 10/18/24 History [Centrum Silver Tablet] lisinopriL [Zestril] 10 mg PO DIRECTED 06/11/23 10/18/24 History Acetaminophen Tab [Tylenol] 650 mg PO Q6HR PRN tab 06/12/23 Rx Aspirin 81 mg PO DAILY tab 06/12/23 Rx Cefuroxime [Ceftin] 250 mg PO BID 5 Days #10 tab 06/12/23 Rx metroNIDAZOLE [Flagyl] 500 mg PO TID-W/MEALS #15 tab 06/12/23 Rx
== END ==
LOC: 3 N SLEEP 10:33
PROVIDERS: ATTEND Internal Medicine
DX: G47.33 Obstructive sleep apnea (adult) (pediatric) (principal); I10 Essential (primary) hypertension; E66.9 Obesity, unspecified; Z68.34 Body mass index [BMI] 34.0-34.9, adult; Z86.73 Personal history of transient ischemic attack (TIA), and cerebral infarction without residual deficits; Z96.643 Presence of artificial hip joint, bilateral; Z86.69 Personal history of other diseases of the nervous system and sense organs; Z86.79 Personal history of other diseases of the circulatory system; Z98.1 Arthrodesis status; Z90.89 Acquired absence of other organs; Z98.890 Other specified postprocedural states; Z87.891 Personal history of nicotine dependence
CPT/HCPCS: 99212

== ENCOUNTER 2025-01-15 10:13 | Inpatient (IN) | payer MEDICARE ==
--- NOTE | 2025-01-15 11:02 | ED ---
General Adult HPI - General Chief complaint: Weakness Stated complaint: Possible stroke, weakness, diarrhea Time Seen by Provider: 01/15/25 10:26 Source: patient, family Mode of arrival: wheelchair Limitations: no limitations - History of Present Illness Initial comments: Dictation was produced using [employer] dictation software. please excuse any grammatical, word or spelling errors. Chief Complaint: 64-year-old male presents to the emergency department with weakness confusion History of Present Illness: Patient 64-year-old male with history of stroke. History present illness obtained from and son at the bedside patient has history of stroke with some residual deficits. This morning he woke up unable to stand take a bath. Patient denies any complaints. Family states that he is significantly weak. He has had some diarrhea with history of diverticulitis. The ROS documented in this emergency department record has been reviewed and c onfirmed by me. Those systems with pertinent positive or negative responses have been documented in the HPI. All other systems are other negative and/or noncontributory. - Related Data Home Medications Medication Instructions Recorded Confirmed Atorvastatin [Lipitor] 40 mg PO DIRECTED 01/13/21 10/18/24 Metoprolol Tartrate [Lopressor] 75 mg PO BID 01/13/21 10/18/24 Umeclidinium Brm/Vilanterol Tr 1 puff INHALATION DIRECTED 01/13/21 10/18/24 [Anoro Ellipta 62.5-25 Mcg INH] metFORMIN HCL ER [Glucophage XR] 500 mg PO DIRECTED 01/13/21 10/18/24 Citalopram Hydrobromide 20 mg PO DIRECTED 03/09/22 10/18/24 [Citalopram HBr] Multivit-Min/FA/Lycopen/Lutein 1 tab PO HS 06/11/23 10/18/24 [Centrum Silver Tablet] lisinopriL [Zestril] 10 mg PO DIRECTED 06/11/23 10/18/24 Previous Rx's Medication Instructions Recorded Acetaminophen Tab [Tylenol] 650 mg PO Q6HR PRN tab 06/12/23 Aspirin 81 mg PO DAILY tab 06/12/23 Cefuroxime [Ceftin] 250 mg PO BID 5 Days #10 tab 06/12/23 metroNIDAZOLE [Flagyl] 500 mg PO TID-W/MEALS #15 tab 06/12/23 Allergies Allergy/AdvReac Type Severity Reaction Status Date / Time No Known Allergies Allergy Verified 06/11/23 07:52 Review of Systems ROS Statement: Those systems with pertinent positive or pertinent negative responses have been documented in the HPI. ROS Other: All systems not noted in ROS Statement are negative. Past Medical History Past Medical History: CVA/TIA, Hyperlipidemia, Hypertension, Musculoskeletal Disorder, Sleep Apnea/CPAP/BIPAP Additional Past Medical History / Comment(s): uses CPAP, kidney stones, garbled speech diverticulitis History of Any Multi-Drug Resistant Organisms: None Reported Past Surgical History: Back Surgery, Heart Catheterization, Joint Replacement, Orthopedic Surgery Additional Past Surgical History / Comment(s): Total R hip arthroplasty , total l hip arthroplasty 2 years ago, CERVICAL SURGERY WITH PLATE, URETHRA SURGERY, [facility] PROCEDURES. vp packaging shunt Past Anesthesia/Blood Transfusion Reactions: No Reported Reaction Additional Past Anesthesia/Blood Transfusion Reaction / Comment(s): No history of blood transfusion. Past Psychological History: No Psychological Hx Reported Smoking Status: Never smoker Past Alcohol Use History: None Reported Past Drug Use History: None Reported - Past Family History Mother Family Medical History: Cancer Additional Family Medical History / Comment(s): lung cancer Father Family Medical History: Myocardial Infarction (IA) Additional Family Medical History / Comment(s): Father is 76 yrs old. General Exam - General Exam Comments Initial Comments: PHYSICAL EXAM: General Impression: Alert and oriented x3, not in acute distress HEENT: Normocephalic atraumatic, extra-ocular movements intact, pupils equal and reactive to light bilaterally, mucous membranes moist. Cardiovascular: Heart regular rate and rhythm Chest: Able to complete full sentences, no retractions, no tachypnea Abdomen: abdomen soft, non-tender, non-distended, no organomegaly Musculoskeletal: Pulses present and equal in all extremities, no peripheral edema Motor: no focal deficits noted Neurological: CN II-XII grossly intact, no focal motor or sensory deficits noted Skin: Intact with no visualized rashes Psych: Normal affect and mood Limitations: no limitations Course Vital Signs 01/15/25 01/15/25 01/15/25 10:20 12:25 14:00 Temperature 101.2 F H 97.5 F L Pulse Rate 107 H 103 H 91 Respiratory 20 16 20 Rate Blood Pressure 156/92 126/78 124/80 O2 Sat by Pulse 94 L 94 L Oximetry Medical Decision Making - Medical Decision Making Was pt. sent in by a medical professional or institution (, PA, SURGICAL GARMENT ASSEMBLER, urgent care, hospital, or snf...) When possible be specific @ -No Did you speak to anyone other than the patient for history (EMS, parent, family, police, friend...)? What history was obtained from this source @ -No Did you review nursing and triage notes (agree or disagree)? Why? @ -I reviewed and agree with nursing and triage notes Were old charts reviewed (outside hosp., previous admission, EMS record, old EKG, old radiological studies, urgent care reports/EKG's, snf records)? Report findings @ -No old charts were reviewed Differential Diagnosis (chest pain, altered mental status, abdominal pain women, abdominal pain men, vaginal bleeding, musculoskeletal, weakness, fever, dyspnea, syncope, headache, dizziness, GI bleed, back pain, seizure, CVA, palpatations, mental health)? @ -Differential Fever: Pneumonia, viral URI, endocarditis, myocarditis, pericarditis, otitis, sinusitis, peritonsillar Abscess, retropharyngeal Abscess, epiglottitis, peritonitis, appendicitis, Indira cystitis, diverticulitis, hepatitis, colitis, UTI, PID, TOA, pyelonephritis, prostatitis, epididymitis, meningitis, encephalitis, pulmonary embolism, CVA, thyroid storm, pancreatitis, adrenal crisis, cavernous sinus thrombosis, this is not meant to be an all-inclusive list. EKG interpreted by me (3pts min.). @ -My EKG interpretation: Ventricular rate 105, sinus tachycardia, TX 186, QRS 93, QTc 377. No TX prolongation, no QTC prolongation, no ST or T-wave changes noted. . Overall, this EKG is unremarkable X-rays interpreted by me (1pt min.). @ -None done CT interpreted by me (1pt min.). @ -CT chest abdomen pelvis shows intramural abscess located at the level of the sigmoid colon with surrounding fat stranding. U/S interpreted by me (1pt. min.). @ -None done What testing was considered but not performed or refused? (CT, X-rays, U/S, labs)? Why? @ -None What meds were considered but not given or refused? Why? @ -None Was smoking cessation discussed for >3mins.? @ -No Were there social determinants of health that impacted care today? How? (Homelessness, low income, unemployed, alcoholism, drug addiction, transportation, low edu. Level, literacy, decrease access to med. care, nursing home, rehab)? @ -No Was there de-escalation of care discussed even if they declined (Discuss DNR or withdrawal of care, Hospice)? DNR status @ -No What co-morbidities impacted this encounter? (DM, HTN, Smoking, COPD, CAD, Cancer, CVA, ARF, Chemo, Hep., AIDS, mental health diagnosis, sleep apnea, morbid obesity)? @ -None Was patient admitted / discharged? Hospital course, mention meds given and route, prescriptions, significant lab abnormalities, going to OR and other pertinent info. @ -64-year-old male presents emergency department with weakness. Patient febrile upon arrival with initial temperature of one 1.2, heart rate of 107. Patient well-appearing at the bedside no acute distress. Mild leukocytosis 10.7. Lactic acidosis 2.1. Rest of labs unremarkable. CT shows intra- abdominal abscess. Patient started on antibiotics. Will be admitted consultation to general surgery. Case discussed with hospitalist for admission. Not hypotensive and lactic is less than 4 Did you discuss the management of the patient with other professionals (professionals i.e. , PA, SURGICAL GARMENT ASSEMBLER, lab, RT, psych nurse, social service assistant, nuclear plant equipment operator, teacher, parole hearing officer, casework manager)? Giv. Patient does not meet criteria for severe sepsis.e summary @ -No Was critical care preformed (if so, how long)? @ -No Undiagnosed new problem with uncertain prognosis? @ -No Drug Therapy requiring intensive monitoring for toxicity (Heparin, Nitro, Insulin, Cardizem)? @ -No Were any procedures done? @ -No Diagnosis/symptom? Acute, or Chronic, or Acute on Chronic? Uncomplicated (without systemic symptoms) or Complicated (systemic symptoms)? @ -Intra-abdominal abscess Side effects of treatment? @ -No Exacerbation, Progression, or Severe Exacerbation? @ -No Poses a threat to life or bodily function? How? (Chest pain, USA, [place], pneumonia, PE, COPD, DKA, ARF, appy, cholecystitis, CVA, Diverticulitis, Homicidal, Suicidal, threat to staff... and all critical care pts) @ -yes - Lab Data Result diagrams: 01/15/25 11:03 01/15/25 11:03 Lab Results 01/15/25 01/15/25 01/15/25 Range/Units 11:03 11:03 11:03 WBC 10.71 H (4.50-10.00) 10*3/uL RBC 4.79 (4.40-5.60) 10*6/uL Hgb 14.1 (13.0-17.0) g/dL Hct 43.0 (39.6-50.0) % MCV 89.8 (80.0-97.0) fL MCH 29.4 (27.0-32.0) pg MCHC 32.8 (32.0-37.0) g/dL Plt Count 198 (140-440) 10*3/uL MPV 11.2 (9.5-12.2) fL Immature Gran % (Auto) 0.6 % Neutrophils % 84.5 % Lymphocytes % 7.3 % Monocytes % 6.9 % Eosinophils % 0.3 % Basophils % 0.4 % Immature Gran # 0.06 H (0.00-0.04) 10*3/uL Neutrophils # 9.06 H (1.80-7.70) 10*3/uL Lymphocytes # 0.78 L (0.90-5.00) 10*3/uL Monocytes # 0.74 (0.20-1.00) 10*3/uL Eosinophils # 0.03 L (0.04-0.35) 10*3/uL Basophils # 0.04 (0.00-0.10) 10*3/uL PT 10.7 (10.0-12.5) sec INR 1.0 (<1.2) APTT 23.1 (22.0-30.0) sec Sodium 140 (137-145) mmol/L Potassium 5.0 (3.5-5.1) mmol/L Chloride 103 (98-107) mmol/L Carbon Dioxide 26 (22-30) mmol/L Anion Gap 11 mmol/L BUN 20 (9-20) mg/dL Creatinine 0.81 (0.66-1.25) mg/dL Est GFR (CKD-EPI)AfAm >90 (>60 ml/min/1.73 sqM) Est GFR (CKD-EPI)NonAf >90 (>60 ml/min/1.73 sqM) Glucose 125 H (74-99) mg/dL Lactic Ac Sepsis Rflx Plasma Lactic Acid Denzel (0.7-2.0) mmol/L Calcium 8.6 (8.4-10.2) mg/dL Magnesium 1.8 (1.6-2.3) mg/dL Total Bilirubin 1.2 (0.2-1.3) mg/dL AST 37 (17-59) U/L ALT 24 (4-49) U/L Alkaline Phosphatase 71 (38-126) U/L Troponin I (0.000-0.034) ng/mL Total Protein 7.3 (6.3-8.2) g/dL Albumin 4.5 (3.5-5.0) g/dL Urine Color Urine Appearance (Clear) Urine pH (5.0-8.0) Ur Specific Lock[place] (1.001-1.035) Urine Protein (Negative) Urine Glucose (UA) (Negative) Urine Ketones (Negative) Urine Blood (Negative) Urine Nitrite (Negative) Urine Bilirubin (Negative) Urine Urobilinogen (<2.0) mg/dL Ur Leukocyte Esterase (Negative) Urine RBC (0-5) /hpf Urine WBC (0-5) /hpf Ur Squamous Epith Cells (0-4) /hpf Urine Mucus (None) /hpf Influenza Type A (PCR) (Not Detectd) Influenza Type B (PCR) (Not Detectd) RSV (PCR) (Not Detectd) SARS-CoV-2 (PCR) (Not Detectd) 01/15/25 01/15/25 01/15/25 Range/Units 11:03 11:03 11:11 WBC (4.50-10.00) 10*3/uL RBC (4.40-5.60) 10*6/uL Hgb (13.0-17.0) g/dL Hct (39.6-50.0) % MCV (80.0-97.0) fL MCH (27.0-32.0) pg MCHC (32.0-37.0) g/dL Plt Count (140-440) 10*3/uL MPV (9.5-12.2) fL Immature Gran % (Auto) % Neutrophils % % Lymphocytes % % Monocytes % % Eosinophils % % Basophils % % Immature Gran # (0.00-0.04) 10*3/uL Neutrophils # (1.80-7.70) 10*3/uL Lymphocytes # (0.90-5.00) 10*3/uL Monocytes # (0.20-1.00) 10*3/uL Eosinophils # (0.04-0.35) 10*3/uL Basophils # (0.00-0.10) 10*3/uL PT (10.0-12.5) sec INR (<1.2) APTT (22.0-30.0) sec Sodium (137-145) mmol/L Potassium (3.5-5.1) mmol/L Chloride (98-107) mmol/L Carbon Dioxide (22-30) mmol/L Anion Gap mmol/L BUN (9-20) mg/dL Creatinine (0.66-1.25) mg/dL Est GFR (CKD-EPI)AfAm (>60 ml/min/1.73 sqM) Est GFR (CKD-EPI)NonAf (>60 ml/min/1.73 sqM) Glucose (74-99) mg/dL Lactic Ac Sepsis Rflx Plasma Lactic Acid Denzel 2.1 H* (0.7-2.0) mmol/L Calcium (8.4-10.2) mg/dL Magnesium (1.6-2.3) mg/dL Total Bilirubin (0.2-1.3) mg/dL AST (17-59) U/L ALT (4-49) U/L Alkaline Phosphatase (38-126) U/L Troponin I <0.012 (0.000-0.034) ng/mL Total Protein (6.3-8.2) g/dL Albumin (3.5-5.0) g/dL Urine Color Urine Appearance (Clear) Urine pH (5.0-8.0) Ur Specific [place] (1.001-1.035) Urine Protein (Negative) Urine Glucose (UA) (Negative) Urine Ketones (Negative) Urine Blood (Negative) Urine Nitrite (Negative) Urine Bilirubin (Negative) Urine Urobilinogen (<2.0) mg/dL Ur Leukocyte Esterase (Negative) Urine RBC (0-5) /hpf Urine WBC (0-5) /hpf Ur Squamous Epith Cells (0-4) /hpf Urine Mucus (None) /hpf Influenza Type A (PCR) Not Detected (Not Detectd) Influenza Type B (PCR) Not Detected (Not Detectd) RSV (PCR) Not Detected (Not Detectd) SARS-CoV-2 (PCR) Not Detected (Not Detectd) 01/15/25 01/15/25 Range/Units 11:37 12:23 WBC (4.50-10.00) 10*3/uL RBC (4.40-5.60) 10*6/uL Hgb (13.0-17.0) g/dL Hct (39.6-50.0) % MCV (80.0-97.0) fL MCH (27.0-32.0) pg MCHC (32.0-37.0) g/dL Plt Count (140-440) 10*3/uL MPV (9.5-12.2) fL Immature Gran % (Auto) % Neutrophils % % Lymphocytes % % Monocytes % % Eosinophils % % Basophils % % Immature Gran # (0.00-0.04) 10*3/uL Neutrophils # (1.80-7.70) 10*3/uL Lymphocytes # (0.90-5.00) 10*3/uL Monocytes # (0.20-1.00) 10*3/uL Eosinophils # (0.04-0.35) 10*3/uL Basophils # (0.00-0.10) 10*3/uL PT (10.0-12.5) sec INR (<1.2) APTT (22.0-30.0) sec Sodium (137-145) mmol/L Potassium (3.5-5.1) mmol/L Chloride (98-107) mmol/L Carbon Dioxide (22-30) mmol/L Anion Gap mmol/L BUN (9-20) mg/dL Creatinine (0.66-1.25) mg/dL Est GFR (CKD-EPI)AfAm (>60 ml/min/1.73 sqM) Est GFR (CKD-EPI)NonAf (>60 ml/min/1.73 sqM) Glucose (74-99) mg/dL Lactic Ac Sepsis Rflx Y Plasma Lactic Acid Denzel (0.7-2.0) mmol/L Calcium (8.4-10.2) mg/dL Magnesium (1.6-2.3) mg/dL Total Bilirubin (0.2-1.3) mg/dL AST (17-59) U/L ALT (4-49) U/L Alkaline Phosphatase (38-126) U/L Troponin I (0.000-0.034) ng/mL Total Protein (6.3-8.2) g/dL Albumin (3.5-5.0) g/dL Urine Color Yellow Urine Appearance Clear (Clear) Urine pH 6.0 (5.0-8.0) Ur Specific [place] 1.041 H (1.001-1.035) Urine Protein Trace H (Negative) Urine Glucose (UA) Negative (Negative) Urine Ketones Negative (Negative) Urine Blood Small H (Negative) Urine Nitrite Negative (Negative) Urine Bilirubin Negative (Negative) Urine Urobilinogen <2.0 (<2.0) mg/dL Ur Leukocyte Esterase Negative (Negative) Urine RBC 9 H (0-5) /hpf Urine WBC 1 (0-5) /hpf Ur Squamous Epith Cells <1 (0-4) /hpf Urine Mucus Rare H (None) /hpf Influenza Type A (PCR) (Not Detectd) Influenza Type B (PCR) (Not Detectd) RSV (PCR) (Not Detectd) SARS-CoV-2 (PCR) (Not Detectd) Disposition Clinical Impression: Intra-abdominal abscess Disposition: ADMITTED IP TO THIS [facility] Condition: Fair Referrals: Vega Luque MD [Primary Care Provider] - 1-2 days Decision Time: 14:09
[2025-01-15] MEDS: SODIUM CHLORIDE 0.9% 1,000 ML IV STA (11:03)
[2025-01-15] MEDS: ACETAMINOPHEN TAB 500 MG TAB PO STA (11:04)
[2025-01-15 11:12] LABS: Basophils # (A) 0.04 10*3/uL (0.00-0.10); Basophils % (A) 0.4 %; Eosinophils # (A) 0.03 10*3/uL (0.04-0.35); Eosinophils % (A) 0.3 %; HCT 43.0 % (39.6-50.0); HGB 14.1 g/dL (13.0-17.0); Lymphocytes # (A) 0.78 10*3/uL (0.90-5.00); Lymphocytes % (A) 7.3 %; MCH 29.4 pg (27.0-32.0); MCHC 32.8 g/dL (32.0-37.0); MCV 89.8 fL (80.0-97.0); Monocytes # (A) 0.74 10*3/uL (0.20-1.00); Monocytes % (A) 6.9 %; Neutrophils # (A) 9.06 10*3/uL (1.80-7.70); Neutrophils % (A) 84.5 %; Platelet Count 198 10*3/uL (140-440); RBC 4.79 10*6/uL (4.40-5.60); RDW 14.1 % (11.5-14.5); WBC 10.71 10*3/uL (4.50-10.00)
[2025-01-15 11:27] LABS: ALT 24 U/L (4-49); African American GFR (CKD) >90 (>60 ml/min/1.73 sqM); Albumin 4.5 g/dL (3.5-5.0); Anion Gap 11 mmol/L; Blood Urea Nitrogen 20 mg/dL (9-20); Calcium 8.6 mg/dL (8.4-10.2); Carbon Dioxide 26 mmol/L (22-30); Chloride 103 mmol/L (98-107); Glucose 125 mg/dL (74-99); Non-African American GFR(CKD) >90 (>60 ml/min/1.73 sqM); Sodium 140 mmol/L (137-145); Total Protein 7.3 g/dL (6.3-8.2)
[2025-01-15 11:28] LABS: INR 1.0 (<1.2); Partial Thromboplastin Time 23.1 sec (22.0-30.0); Prothrombin Time 10.7 sec (10.0-12.5)
[2025-01-15 11:34] LABS: AST 37 U/L (17-59); Alkaline Phosphatase 71 U/L (38-126); Magnesium 1.8 mg/dL (1.6-2.3); Potassium 5.0 mmol/L (3.5-5.1)
[2025-01-15 11:53] LABS: RSV Not Detected (Not Detectd)
[2025-01-15 12:43] LABS: Bilirubin,Urine Negative (Negative); Blood,Urine Small (Negative); Color,Urine Yellow; Glucose,Urine (UA) Negative (Negative); Ketones,Urine Negative (Negative); Leukocyte Esterase,Urine Negative (Negative); Mucus,Urine Rare /hpf; Nitrite,Urine Negative (Negative); PH, Urine 6.0 (5.0-8.0); Protein,Urine Trace (Negative); RBC,Urine 9 /hpf (0-5); Specific Gravity,Urine 1.041 (1.001-1.035); Squamous Epithelial Cell,Urine <1 /hpf (0-4); Urobilinogen,Urine <2.0 mg/dL (<2.0); WBC,Urine 1 /hpf (0-5)
--- NOTE | 2025-01-15 13:02 | CT ---
EXAMINATION TYPE: CT ChestAbdPelvis w con DATE OF EXAM: 01/15/2025 COMPARISON: 06/11/2023 HISTORY: Weakness, diarrhea. AMS. CT DLP: 1441.5 mGycm. Automated Exposure Control for Dose Reduction was Utilized. CONTRAST: CT scan of the thorax, abdomen and pelvis is performed with IV Contrast, patient injected with 100ml mL of Isovue 300. FINDINGS: LUNGS: Bilateral dependent groundglass changes favor atelectasis over pneumonitis recommend correlati on clinically. On image 24 series 202 there is a 4 mm right lower lobe groundglass nodule.. MEDIASTINUM: There are no greater than 1 cm hilar or mediastinal lymph nodes. No pericardial effusi on is seen. HEART: Cardiomegaly is demonstrated. No significant coronary artery calcifications. OTHER: No additional significant abnormality is seen. LIVER/GB: Liver reduced attenuation correlate for hepatic steatosis. Right lobe the liver measures 18 .4 cm compatible with hepatomegaly.. PANCREAS: No significant abnormality is seen. SPLEEN: No significant abnormality is seen. ADRENALS: No significant abnormality is seen. KIDNEYS: No hydronephrosis. There is an indeterminant 1.5 cm nodule in the posterior margin of the ri ght mid kidney. Simple appearing cyst left kidney.. BOWEL: Marked bowel wall thickening involving the left colon with adjacent reactive adenopathy or per itoneal implants. There is diverticular disease in the region. A small abscess within the wall the roger wel measuring 2 cm is suspected. Appendix normal. GENITAL ORGANS: Limited by artifact from bilateral hip prostheses.. LYMPH NODES: No greater than 1cm abdominal or pelvic lymph nodes are appreciated. There are multiple punctate nodule seen in the region of inflammatory change adjacent to the left colon and sigmoid colo n junction which could be related to reactive lymph nodes. Underlying lymphadenopathy or peritoneal i mplants not excluded. Additional subcentimeter retroperitoneal and mesenteric lymph nodes are seen. OSSEOUS STRUCTURES: Bilateral hip prostheses limits assessment of the pelvis. There is mild hypertrop hic SI joint arthropathy and multilevel hypertrophic and degenerative changes of the spine. Scattered punctate sclerotic foci too small to characterize but likely related to benign bone [place] postsurgi bg changes cervical spine.. OTHER: Intra-abdominal catheter noted.. IMPRESSION: 1. There is marked bowel wall thickening of the distal distal left\sigmoid colon With small suspected 2 cm intramural abscess within the anterior wall of the bowel. Differential diagnosis includes diver ticulitis, colitis. Recommend follow-up to resolution to exclude a underlying mucosal lesion\mass. 2. Indeterminate right renal lesion recommend follow-up ultrasound. 3. Bilateral groundglass subsegmental consolidation could be related to dependent atelectasis correla te clinically to exclude pneumonitis. 4. Groundglass nodule right lower lobe too small to characterize. Recommend 12 month follow-up CT [facility]. [facility], , 01/15/2025 12:59 PM
[2025-01-15] MEDS ORDERED: NALOXONE 0.4 MG/ML 1 ML VIAL IV PRN (13:54)
[2025-01-15] MEDS ORDERED: DEXTROSE 50% SYRINGE 50 ML IVP PRN ×2 (15:36)
[2025-01-15] MEDS ORDERED: ACETAMINOPHEN TAB 325 MG TAB PO PRN (15:39)
[2025-01-15] MEDS ORDERED: ONDANSETRON 4 MG/2 ML VIAL IVP PRN (15:39)
[2025-01-15] MEDS ORDERED: HYDROcodone/APAP 5-325MG 1 EACH TAB PO PRN (15:39)
[2025-01-15] MEDS ORDERED: MORPHINE SULFATE 4 MG/ML SYRINGE IV PRN (15:39)
[2025-01-15] MEDS: SODIUM CHLORIDE 0.9% 1,000 ML IV SCH (16:12)
[2025-01-15] MEDS: PIPERACILLIN-TAZOBACTAM 3.375 GM in SODIUM CHLORIDE 0.9% 100 ML IVPB SCH (16:14)
[2025-01-15 16:33] LABS: Glucose,Whole Blood 71 mg/dL (70-110)
[2025-01-15] MEDS: INSULIN LISPRO (HumaLOG) 100 UNIT/ML 10 mL VL SQ SCH (17:16)
[2025-01-15 17:21] LABS: Glucose,Whole Blood 115 mg/dL (70-110)
--- NOTE | 2025-01-15 17:52 | P.HPIM ---
History of Present Illness H&P Date: 01/15/25 History of Presenting Illness: Patient is a very pleasant 64-year-old male with a past medical history of CAD, hypertension, hyperlipidemia, previous CVA with speech and left-sided deficits, [id number] diabetes mellitus, diverticulosis with recurrent episodes of diverticulitis and obstructive sleep apnea CPAP dependent nightly. He presented to the emergency department with a chief complaint of diarrhea, increased weakness, fatigue, and confusion. Patient's at bedside does report history of diverticulitis and stating he is presenting with typical sig ns/symptoms. Patient reports decreased oral intake, diarrhea, and denies any known fevers at home. Patient denies having headache, lightheadedness, dizziness, chest pain, palpitations, shortness of breath, cough or congestion, or abdominal pain. However upon physical exam patient was tender to left lower quadrant. Upon arrival to our facility, patient underwent evaluation in the emergency department. Vital signs upon arrival show blood pressure 156/92, heart rate 107, respiratory rate 20, temp 101.2 F, and SpO2 of 94% on room air. EKG completed showing sinus tachycardia 105 bpm. Labs completed and reviewed. CBC showing leukocytosis with WBC count of 7 1 with immature granulocytes of 0.06 and neutrophils of 9.06. Coagulation profile normal findings. BMP unremarkable. Blood glucose 125. Lactic acid 2.1. Calcium 8.6. Magnesium 1.8. Liver profile unremarkable. Troponin was negative at less than 0.012. Urinalysis negative for infection. Influenza A, influenza B, RSV, and COVID PCR were negative. CT abdomen and pelvis completed showing marked bowel wall thickening in the distal left sigmoid colon with small suspected 2 cm intramural abscess within the anterior wall of the bowel, recommend following up to resolution to exclude an underlying mucosal lesion or mass, indeterminate right renal lesion recommending outpatient follow-up, bilateral groundglass subsegmental consolidation possibly secondary to dependent atelectasis, and groundglass nodule in the right lower lobe too small to characterize radiologist recommending 12-month follow-up with a CT chest. Patient started on IV antibiotics with Zosyn and admitted under our services with consultation to general surgery. Review of systems: Pertinent positives and negatives as discussed in HPI, a complete review of systems was performed and all other systems are negative. Physical exam: Vital signs reviewed and stable. General: Nontoxic, no distress and appears stated age. Derm: Skin warm and dry, normal coloration for ethnicity. Head: Atraumatic, normocephalic and symmetric. Eyes: EOM's intact, no lid lag, and anicteric sclera Mouth: no lip lesions, mucus membranes moist Cardiovascular: regular rate and rhythm with normal S1S2, no murmur, positive posterior tibial pulses bilaterally, and cap refill < 2 seconds. Lungs: Respirations even, regular, and unlabored on room air. Lungs CTA bilaterally, no rhonchi, no rales, no wheezing, and no accessory muscle usage. Abdominal: soft distended, bowel sounds x 4, tenderness upon palpation left lower quadrant., no guarding, no appreciable organomegaly Ext: ROM intact. No gross muscle atrophy, no edema, no contractures Neuro: Speech mild aphasia at baseline from previous CVA along with left-sided deficits. Psych: Alert and oriented. Appropriate and pleasant affect. Assessment and Plan of Care: Acute diverticulitis with intramural abscess Sepsis on arrival, secondary to above Leukocytosis Lactic acidosis Sepsis on arrival secondary to temperature of 101.2 F, heart rate 107, respiratory rate 20, WBC count of 10.71, and lactic acid of 2.1. CT abdomen and pelvis showing marked bowel wall thickening in the distal left sigmoid colon with small suspected 2 cm intramural abscess within the anterior wall of the bowel, recommend following up to resolution to exclude an underlying mucosal lesion or mass. IV antibiotics with Zosyn 3.375 g every 8 hours. Consult placed to general surgery, discussed plan of care with Dr. Chand who is recommending consult to interventional radiology for evaluation and possible drainage of abscess. Consult placed to infectious disease, appreciate recommendations. Consult placed to interventional radiology for drainage of intramural abscess and to send sample for culture and cytology. Symptomatic care and pain management with Tylenol 650 mg every 6 hours as needed for mild pain/fever, [place] 5/325 mg tablets every 4 hours as needed for moderate pain, and morphine 4 mg IVP every 4 hours as needed for severe pain Zofran 4 mg IVP every 8 hours as needed for nausea. Continue IV fluid hydration 0.9% normal saline at 130 cc/h, trend for resolution of lactic acidosis Indeterminate right renal lesion -Recommend outpatient follow-up with renal ultrasound. Groundglass nodule right lower lobe -Recommend outpatient follow-up with follow-up CT chest in 12 months CAD Hypertension Hyperlipidemia History of CVA with speech and left-sided deficits Continue daily medication regimen with lisinopril 10 mg daily, atorvastatin 40 mg nightly, and metoprolol 75 mg twice daily. Ken-[id number]-bvcppibxa diabetes mellitus -Hold metformin and glimepiride and patient placed on glycemic protocol with Humalog sliding scale. Follow-up on hemoglobin A1c results Obstructive sleep apnea, CPAP dependent nightly - Order placed for CPAP nightly and while napping. Data and imaging reviewed: As stated above in HPI The patient is admitted with an anticipated greater than 2 midnight stay for evaluation of acute diverticulitis with intramural abscess CODE STATUS: Full code DVT prophylaxis: SARA boo and SCDs, pending IR evaluation for drainage of intramural abscess Discussed with: Patient, patient's at bedside, RN, ED physician, and general surgeon Anticipated discharge date: Pending clinical course Anticipated discharge place: Pending clinical course Patient was seen independently by Nurse Practitioner. This document was prepared using Thumb dictation software. Please allow for errors in recycling attendant while rare they do occur. Andreas Harper NP rendered care for this patient independently, reviewed the findings and plan as documented in the note above and agree with plan. I did not physically speak with or examine the patient on this date. Past Medical History Past Medical History: CVA/TIA, Hyperlipidemia, Hypertension, Musculoskeletal Disorder, Sleep Apnea/CPAP/BIPAP Additional Past Medical History / Comment(s): uses CPAP, kidney stones, garbled speech diverticulitis History of Any Multi-Drug Resistant Organisms: None Reported Past Surgical History: Back Surgery, Heart Catheterization, Joint Replacement, Orthopedic Surgery Additional Past Surgical History / Comment(s): Total R hip arthroplasty 05/21 12/04, total l hip arthroplasty 2 years ago, CERVICAL SURGERY WITH PLATE, URETHRA SURGERY, [facility] PROCEDURES. avp shunt Past Anesthesia/Blood Transfusion Reactions: No Reported Reaction Additional Past Anesthesia/Blood Transfusion Reaction / Comment(s): No history of blood transfusion. Past Psychological History: No Psychological Hx Reported Smoking Status: Never smoker Past Alcohol Use History: None Reported Past Drug Use History: None Reported - Past Family History Mother Family Medical History: Cancer Additional Family Medical History / Comment(s): lung cancer Father Family Medical History: Myocardial Infarction ([place]) Additional Family Medical History / Comment(s): Father is 76 yrs old. Medications and Allergies Home Medications Medication Instructions Recorded Confirmed Type Atorvastatin [Lipitor] 40 mg PO HS 01/13/21 01/15/25 History Metoprolol Tartrate [Lopressor] 75 mg PO BID 01/13/21 01/15/25 History Umeclidinium Brm/Vilanterol Tr 1 puff INHALATION RT-DAILY 01/13/21 01/15/25 History [Anoro Ellipta 62.5-25 Mcg INH] metFORMIN HCL ER [Glucophage XR] 1,000 mg PO HS 01/13/21 01/15/25 History Citalopram Hydrobromide 20 mg PO HS 03/09/22 01/15/25 History [Citalopram HBr] Multivit-Min/FA/Lycopen/Lutein 1 tab PO HS 06/11/23 01/15/25 History [Centrum Silver Tablet] lisinopriL [Zestril] 10 mg PO DAILY 06/11/23 01/15/25 History Glimepiride [Amaryl] 2 mg PO DAILY 01/15/25 01/15/25 History Allergies Allergy/AdvReac Type Severity Reaction Status Date / Time No Known Allergies Allergy Verified 01/15/25 14:27 Physical Exam Vitals: Vital Signs Temp Pulse Resp BP Pulse Ox 01/15/25 14:00 91 20 124/80 94 L 01/15/25 12:25 97.5 F L 103 H 16 126/78 94 L 01/15/25 10:20 101.2 F H 107 H 20 156/92 Intake and Output 01/15/25 01/15/25 01/15/25 06:59 14:59 22:59 Other: Weight 97.522 kg Results CBC & Chem 7: 01/15/25 11:03 01/15/25 11:03 Labs: Abnormal Lab Results - Last 24 Hours (Table) 01/15/25 01/15/25 01/15/25 Range/Units 11:03 11:03 11:03 WBC 10.71 H (4.50-10.00) 10*3/uL Immature Gran # 0.06 H (0.00-0.04) 10*3/uL Neutrophils # 9.06 H (1.80-7.70) 10*3/uL Lymphocytes # 0.78 L (0.90-5.00) 10*3/uL Eosinophils # 0.03 L (0.04-0.35) 10*3/uL Glucose 125 H (74-99) mg/dL Plasma Lactic Acid Denzel 2.1 H* (0.7-2.0) mmol/L Ur Specific [place] (1.001-1.035) Urine Protein (Negative) Urine Blood (Negative) Urine RBC (0-5) /hpf Urine Mucus (None) /hpf 01/15/25 Range/Units 12:23 WBC (4.50-10.00) 10*3/uL Immature Gran # (0.00-0.04) 10*3/uL Neutrophils # (1.80-7.70) 10*3/uL Lymphocytes # (0.90-5.00) 10*3/uL Eosinophils # (0.04-0.35) 10*3/uL Glucose (74-99) mg/dL Plasma Lactic Acid Denzel (0.7-2.0) mmol/L Ur Specific [place] 1.041 H (1.001-1.035) Urine Protein Trace H (Negative) Urine Blood Small H (Negative) Urine RBC 9 H (0-5) /hpf Urine Mucus Rare H (None) /hpf
[2025-01-15] MEDS: MULTIVITAMINS, THERA 1 EACH TAB PO SCH (20:23)
[2025-01-15] MEDS: CITALOPRAM HYDROBROMIDE 20 MG TAB PO SCH (20:23)
[2025-01-15] MEDS: METOPROLOL TARTRATE 25 MG TAB PO SCH (20:24)
[2025-01-15] MEDS: ATORVASTATIN 40 MG TAB PO SCH (20:24)
--- NOTE | 2025-01-15 23:17 | P.GSCN ---
History of Present Illness History of present illness: Patient is a very pleasant 64-year-old male with a past medical history of CAD, hypertension, hyperlipidemia, previous CVA with speech and left-sided deficits, lki-[id number] diabetes mellitus, diverticulosis with recurrent episodes of diverticulitis and obstructive sleep apnea CPAP dependent nightly. He presented to the emergency department with a chief complaint of diarrhea, in creased weakness, fatigue, and confusion. Patient's at bedside does report history of diverticulitis and stating he is presenting with typical signs/symptoms. Patient reports decreased oral intake, diarrhea, and denies any known fevers at home. Patient denies having headache, lightheadedness, dizziness, chest pain, palpitations, shortness of breath, cough or congestion, or abdominal pain. However upon physical exam patient was tender to left lower quadrant. Upon arrival to our facility, patient underwent evaluation in the emergency department. Vital signs upon arrival show blood pressure 156/92, heart rate 107, respiratory rate 20, temp 101.2 F, and SpO2 of 94% on room air. EKG completed showing sinus tachycardia 105 bpm. Labs completed and reviewed. CBC showing leukocytosis with WBC count of 7 1 with immature granulocytes of 0.06 and neutrophils of 9.06. Coagulation profile normal findings. BMP unremarkable. Blood glucose 125. Lactic acid 2.1. Calcium 8.6. Magnesium 1.8. Liver profile unremarkable. Troponin was negative at less than 0.012. Urinalysis negative for infection. Influenza A, influenza B, RSV, and COVID PCR were negative. CT abdomen and pelvis completed showing marked bowel wall thickening in the distal left sigmoid colon with small suspected 2 cm intramural abscess within the anterior wall of the bowel, recommend following up to resolution to exclude an underlying mucosal lesion or mass, indeterminate right renal lesion recommending outpatient follow-up, bilateral groundglass subsegmental consolidation possibly secondary to dependent atelectasis, and groundglass nodule in the right lower lobe too small to characterize radiologist recommending 12-month follow-up with a CT chest. Patient started on IV antibiotics with Zosyn and admitted under our services with consultation to general surgery. Review of Systems - Constitutional Reports as per HPI Past Medical History Past Medical History: CVA/TIA, Diabetes Mellitus, Hyperlipidemia, Hypertension, Musculoskeletal Disorder, Sleep Apnea/CPAP/BIPAP Additional Past Medical History / Comment(s): uses CPAP, kidney stones, garbled speech diverticulitis, patient states he is borderline diabetic and gets checked every 3 months at doctors office History of Any Multi-Drug Resistant Organisms: None Reported Past Surgical History: Back Surgery, Heart Catheterization, Joint Replacement, Orthopedic Surgery Additional Past Surgical History / Comment(s): Total R hip arthroplasty 06/14/17, total l hip arthroplasty 2 years ago, CERVICAL SURGERY WITH PLATE, URETHRA SURGERY, [facility] PROCEDURES. 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 Past Psychological History: No Psychological Hx Reported Additional Psychological History / Comment(s): Pt resides with his spouse. He is independent with walker. Smoking Status: Former smoker Past Alcohol Use History: None Reported Additional Past Alcohol Use History / Comment(s): QUIT 2004,STARTED 1976. SMOKED 2PPD. Past Drug Use History: None Reported - Past Family History Mother Family Medical History: Cancer Additional Family Medical History / Comment(s): lung cancer Father Family Medical History: Myocardial Infarction ([place]) Additional Family Medical History / Comment(s): Father is 76 yrs old. Medications and Allergies Home Medications Medication Instructions Recorded Confirmed Type Atorvastatin [Lipitor] 40 mg PO HS 01/13/21 01/15/25 History Metoprolol Tartrate [Lopressor] 75 mg PO BID 01/13/21 01/15/25 History Umeclidinium Brm/Vilanterol Tr 1 puff INHALATION RT-DAILY 01/13/21 01/15/25 History [Anoro Ellipta 62.5-25 Mcg INH] metFORMIN HCL ER [Glucophage XR] 1,000 mg PO HS 01/13/21 01/15/25 History Citalopram Hydrobromide 20 mg PO HS 03/09/22 01/15/25 History [Citalopram HBr] Multivit-Min/FA/Lycopen/Lutein 1 tab PO HS 06/11/23 01/15/25 History [Centrum Silver Tablet] lisinopriL [Zestril] 10 mg PO DAILY 06/11/23 01/15/25 History Glimepiride [Amaryl] 2 mg PO DAILY 01/15/25 01/15/25 History Allergies Allergy/AdvReac Type Severity Reaction Status Date / Time No Known Allergies Allergy Verified 01/15/25 14:27 Surgical - Exam Osteopathic Statement: *. No significant issues noted on an osteopathic struct ural exam other than those noted in the History and Physical/Consult. Vital Signs Temp Pulse Resp BP 101.2 F H 107 H 20 156/92 01/15/25 10:20 01/15/25 10:20 01/15/25 10:20 01/15/25 10:20 General No acute distress alert and oriented x 3 Cardiovascular tachycardic Pulmonary nonlabored breathing Abdomen tender to palpation in the left lower quadrant no guarding or rebound tenderness not a surgical abdomen Results - Labs 01/15/25 11:03 01/15/25 11:03 Abnormal Lab Results - Last 24 Hours (Table) 01/15/25 01/15/25 01/15/25 Range/Units 11:03 11:03 11:03 WBC 10.71 H (4.50-10.00) 10*3/uL Immature Gran # 0.06 H (0.00-0.04) 10*3/uL Neutrophils # 9.06 H (1.80-7.70) 10*3/uL Lymphocytes # 0.78 L (0.90-5.00) 10*3/uL Eosinophils # 0.03 L (0.04-0.35) 10*3/uL Glucose 125 H (74-99) mg/dL POC Glucose (mg/dL) (70-110) mg/dL Plasma Lactic Acid Denzel 2.1 H* (0.7-2.0) mmol/L Ur Specific [place] (1.001-1.035) Urine Protein (Negative) Urine Blood (Negative) Urine RBC (0-5) /hpf Urine Mucus (None) /hpf 01/15/25 01/15/25 Range/Units 12:23 17:20 WBC (4.50-10.00) 10*3/uL Immature Gran # (0.00-0.04) 10*3/uL Neutrophils # (1.80-7.70) 10*3/uL Lymphocytes # (0.90-5.00) 10*3/uL Eosinophils # (0.04-0.35) 10*3/uL Glucose (74-99) mg/dL POC Glucose (mg/dL) 115 H (70-110) mg/dL Plasma Lactic Acid [place]zel (0.7-2.0) mmol/L Ur Specific [place] 1.041 H (1.001-1.035) Urine Protein Trace H (Negative) Urine Blood Small H (Negative) Urine RBC 9 H (0-5) /hpf Urine Mucus Rare H (None) /hpf Diabetes panel 01/15/25 Range/Units 11:03 Sodium 140 (137-145) mmol/L Potassium 5.0 (3.5-5.1) mmol/L Chloride 103 (98-107) mmol/L Carbon Dioxide 26 (22-30) mmol/L BUN 20 (9-20) mg/dL Creatinine 0.81 (0.66-1.25) mg/dL Glucose 125 H (74-99) mg/dL Calcium 8.6 (8.4-10.2) mg/dL AST 37 (17-59) U/L ALT 24 (4-49) U/L Alkaline Phosphatase 71 (38-126) U/L Total Protein 7.3 (6.3-8.2) g/dL Albumin 4.5 (3.5-5.0) g/dL Calcium panel 01/15/25 Range/Units 11:03 Calcium 8.6 (8.4-10.2) mg/dL Albumin 4.5 (3.5-5.0) g/dL Pituitary panel 01/15/25 Range/Units 11:03 Sodium 140 (137-145) mmol/L Potassium 5.0 (3.5-5.1) mmol/L Chloride 103 (98-107) mmol/L Carbon Dioxide 26 (22-30) mmol/L BUN 20 (9-20) mg/dL Creatinine 0.81 (0.66-1.25) mg/dL Glucose 125 H (74-99) mg/dL Calcium 8.6 (8.4-10.2) mg/dL Adrenal panel 01/15/25 Range/Units 11:03 Sodium 140 (137-145) mmol/L Potassium 5.0 (3.5-5.1) mmol/L Chloride 103 (98-107) mmol/L Carbon Dioxide 26 (22-30) mmol/L BUN 20 (9-20) mg/dL Creatinine 0.81 (0.66-1.25) mg/dL Glucose 125 H (74-99) mg/dL Calcium 8.6 (8.4-10.2) mg/dL Total Bilirubin 1.2 (0.2-1.3) mg/dL AST 37 (17-59) U/L ALT 24 (4-49) U/L Alkaline Phosphatase 71 (38-126) U/L Total Protein 7.3 (6.3-8.2) g/dL Albumin 4.5 (3.5-5.0) g/dL Assessment and Plan Assessment: 64-year-old male with complicated diverticulitis hichey I Continue IV antibiotics IR consult for possible drainage No surgical intervention at this time Will continue to follow Okay for clear liquid diet Time with Patient: Less than 30
[2025-01-15 23:32] LABS: Glucose,Whole Blood 134 mg/dL (70-110)
[2025-01-16 03:53] LABS: Glucose,Whole Blood 144 mg/dL (70-110)
[2025-01-16 07:54] LABS: HCT 38.4 % (39.6-50.0); HGB 12.0 g/dL (13.0-17.0); MCH 28.0 pg (27.0-32.0); MCHC 31.3 g/dL (32.0-37.0); MCV 89.7 FL (80.0-97.0); NRBC Per 100 WBC 0 X 10*3/uL (0.00-0.01); Platelet Count 185 X 10*3/uL (140-440); RBC 4.28 X 10*6/uL (4.40-5.60); RDW 14.6 % (11.5-14.5); WBC 8.76 X 10*3/uL (4.50-10.00)
[2025-01-16 08:13] LABS: ALT 21 U/L (10-49); AST 25 U/L (14-35); Albumin 3.7 g/dL (3.8-4.9); Albumin/Globulin Ratio 1.95 Ratio (1.60-3.17); Alkaline Phosphatase 72 U/L (41-126); Anion Gap 11.60 mmol/L (4.00-12.00); BUN/Creat Ratio 11.33 Ratio (12.00-20.00); Blood Urea Nitrogen 10.2 mg/dL (9.0-27.0); Calcium 7.9 mg/dL (8.7-10.3); Carbon Dioxide 23.4 mmol/L (21.6-31.8); Chloride 104 mmol/L (96-109); Globulin 1.9 g/dL (1.6-3.3); Glucose 126 mg/dL (70-110); Magnesium 1.8 mg/dL (1.5-2.4); Potassium 3.6 mmol/L (3.5-5.5); Sodium 139 mmol/L (135-145); Total Protein 5.6 g/dL (6.2-8.2)
[2025-01-16] MEDS: FORMOTEROL FUMARATE 20 MCG/2 ML NEBU INHALATION SCH (08:27)
[2025-01-16] MEDS: TIOTROPIUM 2.5 MCG INHALER INHALATION SCH (08:27)
[2025-01-16] MEDS ORDERED: ENOXAPARIN 40 MG/0.4 ML SYRINGE SQ SCH (09:00)
[2025-01-16 11:51] LABS: Glucose,Whole Blood 168 mg/dL (70-110)
--- NOTE | 2025-01-16 14:28 | P.PN ---
Subjective Progress Note Date: 01/16/25 SURGICAL PROGRESS NOTE CHIEF COMPLAINT: Diverticulitis with abscess HISTORY OF PRESENT ILLNESS: Patient reporting pain is improving. He did have some diarrhea. No blood in the stools. Patient seen by IR service. IR service reported that it was not drainable because it was too small to proceed with at this time. CT scan had reported a 2 cm intramural abscess. Patient does have prior history of CVA. Afebrile. WBC 8.76 PHYSICAL EXAM: VITAL SIGNS: Reviewed. GENERAL: Well-developed in no acute distress. ABDOMEN: Soft. Nondistended. Tenderness palpation left lower quadrant NEUROLOGIC: Alert and oriented. Cranial nerves II through XII grossly intact. ASSESSMENT: 1. Diverticulitis with intramural abscess PLAN: - Not a candidate for IR drainage - No surgical intervention planned at this time - Continue antibiotics per ID service - Continue clear liquid diet Physician House Piping Inspector note has been reviewed by physician. Signing provider agrees with the documented findings, assessment, and plan of care. Attestation Patient seen and examined at bedside. Present with chief complaint of abdominal pain and found to have diverticulitis with intramural abscess. IR service stating this is unable to be drained from IR standpoint. No plan for surgical intervention. Continue IV antibiotics. Continue clear liquid diet. At this point, patient still with some tenderness to palpation in the left lower quadrant. Will continue to follow and make recommendations based on patient's clinical progress. Dereck Jones, Objective - Vital Signs Vital signs: Vital Signs Temp 98.0 F 01/16/25 06:55 Pulse 88 01/16/25 08:38 Resp 17 01/16/25 08:44 BP 139/80 01/16/25 06:55 Pulse Ox 97 01/16/25 06:55 FiO2 Intake & Output 01/15/25 01/16/25 01/16/25 18:59 06:59 18:59 Output Total 500 Balance -500 Weight 97.522 kg 97.522 kg Output: Urine 500 - Labs CBC & Chem 7: 01/16/25 04:05 01/16/25 04:05 Labs: Abnormal Lab Results - Last 24 Hours (Table) 01/15/25 01/15/25 01/16/25 Range/Units 17:20 23:30 03:52 RBC (4.40-5.60) X 10*6/uL Hgb (13.0-17.0) g/dL Hct (39.6-50.0) % MCHC (32.0-37.0) g/dL RDW (11.5-14.5) % BUN/Creatinine Ratio (12.00-20.00) Ratio Glucose (70-110) mg/dL POC Glucose (mg/dL) 115 H 134 H 144 H (70-110) mg/dL Hemoglobin A1c (<=6.0) % Calcium (8.7-10.3) mg/dL Total Protein (6.2-8.2) g/dL Albumin (3.8-4.9) g/dL 01/16/25 01/16/25 01/16/25 Range/Units 04:05 04:05 04:05 RBC 4.28 L (4.40-5.60) X 10*6/uL Hgb 12.0 L (13.0-17.0) g/dL Hct 38.4 L (39.6-50.0) % MCHC 31.3 L (32.0-37.0) g/dL RDW 14.6 H (11.5-14.5) % BUN/Creatinine Ratio 11.33 L (12.00-20.00) Ratio Glucose 126 H (70-110) mg/dL POC Glucose (mg/dL) (70-110) mg/dL Hemoglobin A1c 6.6 H (<=6.0) % Calcium 7.9 L (8.7-10.3) mg/dL Total Protein 5.6 L (6.2-8.2) g/dL Albumin 3.7 L (3.8-4.9) g/dL 01/16/25 Range/Units 11:50 RBC (4.40-5.60) X 10*6/uL Hgb (13.0-17.0) g/dL Hct (39.6-50.0) % MCHC (32.0-37.0) g/dL RDW (11.5-14.5) % BUN/Creatinine Ratio (12.00-20.00) Ratio Glucose (70-110) mg/dL POC Glucose (mg/dL) 168 H (70-110) mg/dL Hemoglobin A1c (<=6.0) % Calcium (8.7-10.3) mg/dL Total Protein (6.2-8.2) g/dL Albumin (3.8-4.9) g/dL
--- NOTE | 2025-01-16 15:13 | P.PN ---
Subjective Progress Note Date: 01/16/25 Hospital Course: Patient is a very pleasant 64-year-old male with a past medical history of CAD, hypertension, hyperlipidemia, previous CVA with speech and left-sided deficits, [id number] diabetes mellitus, diverticulosis with recurrent episodes of diverticulitis and obstructive sleep apnea CPAP dependent nightly. He presented to the emergency department with a chief complaint of diarrhea, increased weakness, fatigue, and confusion. Patient's at bedside does report history of diverticulitis and stating he is presenting with typical signs/symptoms. Patient reports decreased oral intake, diarrhea, and denies any known fevers at home. Patient denies having headache, lightheadedness, dizziness, chest pain, palpitations, shortness of breath, cough or congestion, or abdominal pain. However upon physical exam patient was tender to left lower quadrant. Upon arrival to our facility, patient underwent evaluation in the emergency department. Vital signs upon arrival show blood pressure 156/92, heart rate 107, respiratory rate 20, temp 101.2 F, and SpO2 of 94% on room air. EKG completed showing sinus tachycardia 105 bpm. Labs completed and reviewed. CBC showing leukocytosis with WBC count of 7 1 with immature granulocytes of 0.06 and neutrophils of 9.06. Coagulation profile normal findings. BMP unremarkable. Blood glucose 125. Lactic acid 2.1. Calcium 8.6. Magnesium 1.8. Liver profile unremarkable. Troponin was negative at less than 0.012. Urinalysis negative for infection. Influenza A, influenza B, RSV, and COVID PCR were negative. CT abdomen and pelvis completed showing marked bowel wall thickening in the distal left sigmoid colon with small suspected 2 cm intramural abscess within the anterior wall of the bowel, recommend following up to resolution to exclude an underlying mucosal lesion or mass, indeterminate right renal lesion recommending outpatient follow-up, bilateral groundglass subsegmental consolidation possibly secondary to dependent atelectasis, and groundglass nodule in the right lower lobe too small to characterize radiologist recommending 12-month follow-up with a CT chest. Patient started on IV anti biotics with Zosyn and admitted under our services with consultation to general surgery. Physical exam: Patient was seen and fully evaluated at bedside this morning. He was resting comfortably at time of assessment and reports pain is controlled "unless you push on it". He denies having any nausea or vomiting but does report continued diarrhea. He reports approximately 4-5 episodes since last night. He reports if he needs to urinate he better be close to the bathroom because he is also going to have some diarrhea. Patient denies having any other complaints, que stions, needs, or concerns at this time. Vital signs reviewed and stable. General: Nontoxic, no distress and appears stated age. Derm: Skin warm and dry, normal coloration for ethnicity. Head: Atraumatic, normocephalic and symmetric. Eyes: EOM's intact, no lid lag, and anicteric sclera Mouth: no lip lesions, mucus membranes moist Cardiovascular: regular rate and rhythm with normal S1S2, no murmur, positive posterior tibial pulses bilaterally, and cap refill < 2 seconds. Lungs: Respirations even, regular, and unlabored on room air. Lungs CTA bilaterally, no rhonchi, no rales, no wheezing, and no accessory muscle usage. Abdominal: soft distended, bowel sounds x 4, tenderness upon palpation left lower quadrant., no guarding, no appreciable organomegaly Ext: ROM intact. No gross muscle atrophy, no edema, no contractures Neuro: Speech mild aphasia at baseline from previous CVA along with left-sided deficits. Psych: Alert and oriented. Appropriate and pleasant affect. Assessment and Plan of Care: Acute diverticulitis with intramural abscess Sepsis on arrival, secondary to above Leukocytosis, resolved Lactic acidosis, resolved Sepsis on arrival as evidenced by temperature of 101.2 F, heart rate 107, respiratory rate 20, WBC count of 10.71, and lactic acid of 2.1. CT abdomen and pelvis showing marked bowel wall thickening in the distal left sigmoid colon with small suspected 2 cm intramural abscess within the anterior wall of the bowel, recommend following up to resolution to exclude an underlying mucosal lesion or mass. Continue IV antibiotics with Zosyn 3.375 g every 8 hours. Consult placed to general surgery, discussed plan of care with general surgery PA stating no plans for surgical intervention at this time, recommending patient follow-up for outpatient colonoscopy once completion of treatment. Consult placed to infectious disease, appreciate recommendations. Consult placed to interventional radiology for drainage of intramural abscess and to send sample for culture and cytology. Interventional radiologist stating he reviewed films and abscess is too small to drain at this time, recommending continuation of IV antibiotics with repeat CT in 3 to 4 weeks for follow-up to ensure resolution. Symptomatic care and pain management with Tylenol 650 mg every 6 hours as needed for mild pain/fever, [place] 5/325 mg tablets every 4 hours as needed for moderate pain, and morphine 4 mg IVP every 4 hours as needed for severe pain Zofran 4 mg IVP every 8 hours as needed for nausea. Patient tolerating clear liquid diet, will decrease fluids to 0.9% normal saline at 75 cc/h. May discontinue once diet is advanced. Indeterminate right renal lesion -Recommend outpatient follow-up with renal ultrasound. Groundglass nodule right lower lobe -Recommend outpatient follow-up with follow-up CT chest in 12 months CAD Hypertension Hyperlipidemia History of CVA with speech and left-sided deficits Continue daily medication regimen with lisinopril 10 mg daily, atorvastatin 40 mg nightly, and metoprolol 75 mg twice daily. Sxy-[id number] diabetes mellitus -Hold metformin and glimepiride and patient placed on glycemic protocol with Humalog sliding scale. Hemoglobin A1c 6.6%. Obstructive sleep apnea, CPAP dependent nightly - Order placed for CPAP nightly and while napping. Data and imaging reviewed: Morning labs reviewed. CBC showing normocytic anemia with hemoglobin of 12.0 and hematocrit of 38.4. BMP unremarkable. Blood glucose 126. Hemoglobin A1c 6.6%. Calcium 7.9 with albumin of 3.7 showing a corrected calcium of 8.1. M agnesium 1.8. Liver profile normal findings. Vital signs reviewed. Blood pressure 139/80, heart rate 83, respiratory rate 17, temp 98.0 F, and SpO2 of 97% on room air. CODE STATUS: Full code DVT prophylaxis: Lovenox Discussed with: Patient, interventional radiologist, RN, and general surgery PA Anticipated discharge date: Pending clinical course Anticipated discharge place: Pending clinical course Patient was seen independently by Nurse Practitioner. This document was prepared using [employer] dictation software. Please allow for errors in service desk team lead while rare they do occur. Andreas Harper NP rendered care for this patient independently, reviewed the findings and plan as documented in the note above and agree with plan. I did not physically speak with or examine the patient on this date. Objective - Vital Signs Vital signs: Vital Signs Temp 98.0 F 01/16/25 06:55 Pulse 84 01/16/25 08:30 Resp 17 01/16/25 06:55 BP 139/80 01/16/25 06:55 Pulse Ox 97 01/16/25 06:55 FiO2 Intake & Output 01/15/25 01/16/25 01/16/25 18:59 06:59 18:59 Weight 97.522 kg 97.522 kg - Labs CBC & Chem 7: 01/16/25 04:05 01/16/25 04:05 Labs: Abnormal Lab Results - Last 24 Hours (Table) 01/15/25 01/15/25 01/15/25 Range/Units 11:03 11:03 11:03 WBC 10.71 H (4.50-10.00) 10*3/uL RBC (4.40-5.60) X 10*6/uL Hgb (13.0-17.0) g/dL Hct (39.6-50.0) % MCHC (32.0-37.0) g/dL RDW (11.5-14.5) % Immature Gran # 0.06 H (0.00-0.04) 10*3/uL Neutrophils # 9.06 H (1.80-7.70) 10*3/uL Lymphocytes # 0.78 L (0.90-5.00) 10*3/uL Eosinophils # 0.03 L (0.04-0.35) 10*3/uL BUN/Creatinine Ratio (12.00-20.00) Ratio Glucose 125 H (74-99) mg/dL POC Glucose (mg/dL) (70-110) mg/dL Plasma Lactic Acid Denzel 2.1 H* (0.7-2.0) mmol/L Calcium (8.7-10.3) mg/dL Total Protein (6.2-8.2) g/dL Albumin (3.8-4.9) g/dL Ur Specific [place] (1.001-1.035) Urine Protein (Negative) Urine Blood (Negative) Urine RBC (0-5) /hpf Urine Mucus (None) /hpf 01/15/25 01/15/25 01/15/25 Range/Units 12:23 17:20 23:30 WBC (4.50-10.00) 10*3/uL RBC (4.40-5.60) X 10*6/uL Hgb (13.0-17.0) g/dL Hct (39.6-50.0) % MCHC (32.0-37.0) g/dL RDW (11.5-14.5) % Immature Gran # (0.00-0.04) 10*3/uL Neutrophils # (1.80-7.70) 10*3/uL Lymphocytes # (0.90-5.00) 10*3/uL Eosinophils # (0.04-0.35) 10*3/uL BUN/Creatinine Ratio (12.00-20.00) Ratio Glucose (74-99) mg/dL POC Glucose (mg/dL) 115 H 134 H (70-110) mg/dL Plasma Lactic Acid Denzel (0.7-2.0) mmol/L Calcium (8.7-10.3) mg/dL Total Protein (6.2-8.2) g/dL Albumin (3.8-4.9) g/dL Ur Specific [place] 1.041 H (1.001-1.035) Urine Protein Trace H (Negative) Urine Blood Small H (Negative) Urine RBC 9 H (0-5) /hpf Urine Mucus Rare H (None) /hpf 01/16/25 01/16/25 01/16/25 Range/Units 03:52 04:05 04:05 WBC (4.50-10.00) 10*3/uL RBC 4.28 L (4.40-5.60) X 10*6/uL Hgb 12.0 L (13.0-17.0) g/dL Hct 38.4 L (39.6-50.0) % MCHC 31.3 L (32.0-37.0) g/dL RDW 14.6 H (11.5-14.5) % Immature Gran # (0.00-0.04) 10*3/uL Neutrophils # (1.80-7.70) 10*3/uL Lymphocytes # (0.90-5.00) 10*3/uL Eosinophils # (0.04-0.35) 10*3/uL BUN/Creatinine Ratio 11.33 L (12.00-20.00) Ratio Glucose 126 H (74-99) mg/dL POC Glucose (mg/dL) 144 H (70-110) mg/dL Plasma Lactic Acid Denzel (0.7-2.0) mmol/L Calcium 7.9 L (8.7-10.3) mg/dL Total Protein 5.6 L (6.2-8.2) g/dL Albumin 3.7 L (3.8-4.9) g/dL Ur Specific [place] (1.001-1.035) Urine Protein (Negative) Urine Blood (Negative) Urine RBC (0-5) /hpf Urine Mucus (None) /hpf
[2025-01-16 16:45] LABS: Glucose,Whole Blood 95 mg/dL (70-110)
[2025-01-16] MEDS: SODIUM CHLORIDE 0.9% 1,000 ML IV SCH (16:51)
[2025-01-16] MEDS: INSULIN LISPRO (HumaLOG) 100 UNIT/ML 10 mL VL SQ SCH (17:25)
--- NOTE | 2025-01-16 22:26 | P.CONS ---
History of Present Illness - Reason for Consult Consult date: 01/16/25 Perforated diverticulitis with abscess Requesting physician: Andreas Harper - Chief Complaint Weakness x 1 day - History of Present Illness Patient is a 64-year-old male with a past medical history significant for CVA/TIA, Diabetes Mellitus, Hyperlipidemia, Hypertension, Musculoskeletal Disorder, Sleep Apnea/CPAP/BIPAP presenting to the hospital for evaluation of weakness in this patient apparently was unable to stand for breath patient was also complaining of some lower abdominal pain mostly on the left side moderate intensity sharp in nature without radiation he did have some nausea with vomiting also have some diarrhea on presentation the hospital patient did have a fever of 101.2 degrees for night patient was tachycardic but not hypotensive or hypoxic no need for supplemental oxygen patient did have a white count of 10.71 with a left shift creatinine 0.81 electrolytes are normal liver enzymes are normal urine has been negative influenza RSV COVID testing was negative blood culture obtained which is currently pending patient did have a chest abdominal pelvis CT that was showing marked bowel wall thickening of the distal left sigmoid colon with intramural abscess within the anterior wall of the bowel patient was started on Zosyn infectious he was consulted for further management of antibiotic therapy Review of Systems Positive point and negatives has been mentioned in the HPI, complete review of systems was performed and all other systems are negative Past Medical History Past Medical History: CVA/TIA, Diabetes Mellitus, Hyperlipidemia, Hypertension, Musculoskeletal Disorder, Sleep Apnea/CPAP/BIPAP Additional Past Medical History / Comment(s): uses CPAP, kidney stones, garbled speech diverticulitis, patient states he is borderline diabetic and gets checked every 3 months at doctors office History of Any Multi-Drug Resistant Organisms: None Reported Past Surgical History: Back Surgery, Heart Catheterization, Joint Replacement, Orthopedic Surgery Additional Past Surgical History / Comment(s): Total R hip arthroplasty 06/14/17, total l hip arthroplasty 2 years ago, CERVICAL SURGERY WITH PLATE, URETHRA SURGERY, [facility] PROCEDURES. [employer] shunt Past Anesthesia/Blood Transfusion Reactions: No Reported Reaction Additional Past Anesthesia/Blood Transfusion Reaction / Comm: No history of blood transfusion. Past Psychological History: No Psychological Hx Reported Additional Psychological History / Comment(s): Pt resides with his spouse. He is independent with walker. Smoking Status: Former smoker Past Alcohol Use History: None Reported Additional Past Alcohol Use History / Comment(s): QUIT 2004,STARTED 1976. SMOKED 2PPD. Past Drug Use History: None Reported - Past Family History Mother Family Medical History: Cancer Additional Family Medical History / Comment(s): lung cancer Father Family Medical History: Myocardial Infarction ([place]) Additional Family Medical History / Comment(s): Father is 76 yrs old. Medications and Allergies Home Medications Medication Instructions Recorded Confirmed Type Atorvastatin [Lipitor] 40 mg PO HS 01/13/21 01/15/25 History Metoprolol Tartrate [Lopressor] 75 mg PO BID 01/13/21 01/15/25 History Umeclidinium Brm/Vilanterol Tr 1 puff INHALATION RT-DAILY 01/13/21 01/15/25 History [Anoro Ellipta 62.5-25 Mcg INH] metFORMIN HCL ER [Glucophage XR] 1,000 mg PO HS 01/13/21 01/15/25 History Citalopram Hydrobromide 20 mg PO HS 03/09/22 01/15/25 History [Citalopram HBr] Multivit-Min/FA/Lycopen/Lutein 1 tab PO HS 06/11/23 01/15/25 History [Centrum Silver Tablet] lisinopriL [Zestril] 10 mg PO DAILY 06/11/23 01/15/25 History Glimepiride [Amaryl] 2 mg PO DAILY 01/15/25 01/15/25 History Allergies Allergy/AdvReac Type Severity Reaction Status Date / Time No Known Allergies Allergy Verified 01/15/25 14:27 Physical Exam Vitals: Vital Signs Temp Pulse Pulse Resp BP BP Pulse Ox 01/16/25 08:38 88 01/16/25 08:30 84 01/16/25 06:55 98.0 F 83 17 139/80 97 01/16/25 00:49 98.9 F 102 H 18 121/69 91 L 01/15/25 22:15 19 01/15/25 20:19 98.7 F 97 18 121/77 92 L 01/15/25 19:55 98.9 F 99 18 149/97 99 01/15/25 14:00 91 20 124/80 94 L 01/15/25 12:25 97.5 F L 103 H 16 126/78 94 L Intake and Output 01/15/25 01/16/25 01/16/25 22:59 06:59 14:59 Output Total 500 Balance -500 Output: Urine 500 Other: Weight 97.522 kg GENERAL DESCRIPTION: Elderly male lying in bed, no distress. No tachypnea or accessory muscle of respiration use. HEENT: Shows Pallor , no scleral icterus. Oral mucous membrane is dry. NECK: Trachea central, no thyromegaly. LUNGS: Unlabored breathing. Clear to auscultation anteriorly. No wheeze or crackle. HEART: S1, S2, regular rate and rhythm. No loud murmur ABDOMEN: Soft, mild distention and left-sided tenderness EXTREMITIES: No edema of feet. SKIN: No rash, no masses palpable. NEUROLOGICAL: The patient is awake, alert, oriented x3, mood and affect normal. Results CBC & Chem 7: 01/16/25 04:05 01/16/25 04:05 Labs: Abnormal Lab Results - Last 24 Hours (Table) 01/15/25 01/15/25 01/15/25 Range/Units 11:03 11:03 12:23 RBC (4.40-5.60) X 10*6/uL Hgb (13.0-17.0) g/dL Hct (39.6-50.0) % MCHC (32.0-37.0) g/dL RDW (11.5-14.5) % BUN/Creatinine Ratio (12.00-20.00) Ratio Glucose 125 H (74-99) mg/dL POC Glucose (mg/dL) (70-110) mg/dL Hemoglobin A1c (<=6.0) % Plasma Lactic Acid Denzel 2.1 H* (0.7-2.0) mmol/L Calcium (8.7-10.3) mg/dL Total Protein (6.2-8.2) g/dL Albumin (3.8-4.9) g/dL Ur Specific [place] 1.041 H (1.001-1.035) Urine Protein Trace H (Negative) Urine Blood Small H (Negative) Urine RBC 9 H (0-5) /hpf Urine Mucus Rare H (None) /hpf 01/15/25 01/15/25 01/16/25 Range/Units 17:20 23:30 03:52 RBC (4.40-5.60) X 10*6/uL Hgb (13.0-17.0) g/dL Hct (39.6-50.0) % MCHC (32.0-37.0) g/dL RDW (11.5-14.5) % BUN/Creatinine Ratio (12.00-20.00) Ratio Glucose (74-99) mg/dL POC Glucose (mg/dL) 115 H 134 H 144 H (70-110) mg/dL Hemoglobin A1c (<=6.0) % Plasma Lactic Acid Denzel (0.7-2.0) mmol/L Calcium (8.7-10.3) mg/dL Total Protein (6.2-8.2) g/dL Albumin (3.8-4.9) g/dL Ur Specific [place] (1.001-1.035) Urine Protein (Negative) Urine Blood (Negative) Urine RBC (0-5) /hpf Urine Mucus (None) /hpf 01/16/25 01/16/25 01/16/25 Range/Units 04:05 04:05 04:05 RBC 4.28 L (4.40-5.60) X 10*6/uL Hgb 12.0 L (13.0-17.0) g/dL Hct 38.4 L (39.6-50.0) % MCHC 31.3 L (32.0-37.0) g/dL RDW 14.6 H (11.5-14.5) % BUN/Creatinine Ratio 11.33 L (12.00-20.00) Ratio Glucose 126 H (74-99) mg/dL POC Glucose (mg/dL) (70-110) mg/dL Hemoglobin A1c 6.6 H (<=6.0) % Plasma Lactic Acid Denzel (0.7-2.0) mmol/L Calcium 7.9 L (8.7-10.3) mg/dL Total Protein 5.6 L (6.2-8.2) g/dL Albumin 3.7 L (3.8-4.9) g/dL Ur Specific [place] (1.001-1.035) Urine Protein (Negative) Urine Blood (Negative) Urine RBC (0-5) /hpf Urine Mucus (None) /hpf Assessment and Plan (1) Diverticulitis Current Visit: No Status: Acute Code(s): K57.92 - DVTRCLI OF INTEST, PART UNSP, W/O PERF OR ABSCESS W/O BLEED SNOMED Code(s): 118175856 (2) Sepsis Current Visit: No Status: Acute Code(s): A41.9 - SEPSIS, UNSPECIFIED ORGANISM SNOMED Code(s): 19055442 Plan: 1patient presented hospital with sepsis in this patient who did have fever tachycardia elevated white count medically for SIRS/sepsis source is acute diverticulitis with intramural abscess and likely need to cover for the entire gram-negative both aerobes and anaerobes 2-patient empirically treated with Zosyn 3.375 g 8-hour along with the bowel rest with Discharge antibiotic on the basis of clinical response We will follow on clinical condition and cultures to further adjust medication if needed Thank you for this consultation we will follow the patient along with you Dictation was produced using [employer] dictation software. please excuse any grammatical, word or spelling errors. Time with Patient: Greater than 30
[2025-01-16 23:21] LABS: Glucose,Whole Blood 108 mg/dL (70-110)
[2025-01-17 06:09] LABS: Glucose,Whole Blood 134 mg/dL (70-110)
[2025-01-17] MEDS: ENOXAPARIN 40 MG/0.4 ML SYRINGE SQ SCH (08:13)
[2025-01-17 08:16] LABS: HCT 37.8 % (39.6-50.0); HGB 11.8 g/dL (13.0-17.0); MCH 28.6 pg (27.0-32.0); MCHC 31.2 g/dL (32.0-37.0); MCV 91.5 FL (80.0-97.0); NRBC Per 100 WBC 0 X 10*3/uL (0.00-0.01); Platelet Count 180 X 10*3/uL (140-440); RBC 4.13 X 10*6/uL (4.40-5.60); RDW 14.2 % (11.5-14.5); WBC 6.85 X 10*3/uL (4.50-10.00)
[2025-01-17 08:21] LABS: ALT 20 U/L (10-49); AST 22 U/L (14-35); Albumin 3.4 g/dL (3.8-4.9); Albumin/Globulin Ratio 1.89 Ratio (1.60-3.17); Alkaline Phosphatase 63 U/L (41-126); Anion Gap 11.20 mmol/L (4.00-12.00); BUN/Creat Ratio 7.86 Ratio (12.00-20.00); Blood Urea Nitrogen 5.5 mg/dL (9.0-27.0); Calcium 7.9 mg/dL (8.7-10.3); Carbon Dioxide 23.8 mmol/L (21.6-31.8); Chloride 106 mmol/L (96-109); Globulin 1.8 g/dL (1.6-3.3); Glucose 136 mg/dL (70-110); Magnesium 1.8 mg/dL (1.5-2.4); Potassium 3.7 mmol/L (3.5-5.5); Sodium 141 mmol/L (135-145); Total Protein 5.2 g/dL (6.2-8.2)
[2025-01-17 11:40] LABS: Glucose,Whole Blood 125 mg/dL (70-110)
--- NOTE | 2025-01-17 13:01 | P.PN ---
Subjective Progress Note Date: 01/17/25 SURGICAL PROGRESS NOTE CHIEF COMPLAINT: Diverticulitis with abscess HISTORY OF PRESENT ILLNESS: Patient reports his pain is improving. He denies any nausea or vomiting. He did have a bowel movement. Denies any blood in his stools. Afebrile. WBC is 6.85 PHYSICAL EXAM: VITAL SIGNS: Reviewed. GENERAL: Well-developed in no acute distress. ABDOMEN: Soft. Nondistended. minimal tenderness palpation left lower quadrant NEUROLOGIC: Alert and oriented. Cranial nerves II through XII grossly intact. ASSESSMENT: 1. Diverticulitis with intramural abscess PLAN: - Not a candidate for IR drainage - No surgical intervention planned at this time - Continue antibiotics per ID service - Advance to full liquids Physician Dialysis Clinical Manager note has been reviewed by physician. Signing provider agrees with the documented findings, assessment, and plan of care. Objective - Vital Signs Vital signs: Vital Signs Temp 97.6 F 01/17/25 07:39 Pulse 80 01/17/25 09:24 Resp 16 01/17/25 07:39 BP 152/89 01/17/25 07:39 Pulse Ox 94 L 01/17/25 07:39 FiO2 Intake & Output 01/16/25 01/17/25 01/17/25 18:59 06:59 18:59 Output Total 500 1275 Balance -500 -1275 Output: Urine 500 1275 Other: Voiding Method Toilet # Voids 4 1 # Bowel Movements 1 - Labs CBC & Chem 7: 01/17/25 04:47 01/17/25 04:47 Labs: Abnormal Lab Results - Last 24 Hours (Table) 01/17/25 01/17/25 01/17/25 Range/Units 04:47 04:47 06:07 RBC 4.13 L (4.40-5.60) X 10*6/uL Hgb 11.8 L (13.0-17.0) g/dL Hct 37.8 L (39.6-50.0) % MCHC 31.2 L (32.0-37.0) g/dL BUN 5.5 L (9.0-27.0) mg/dL BUN/Creatinine Ratio 7.86 L (12.00-20.00) Ratio Glucose 136 H (70-110) mg/dL POC Glucose (mg/dL) 134 H (70-110) mg/dL Calcium 7.9 L (8.7-10.3) mg/dL Total Protein 5.2 L (6.2-8.2) g/dL Albumin 3.4 L (3.8-4.9) g/dL 01/17/25 Range/Units 11:39 RBC (4.40-5.60) X 10*6/uL Hgb (13.0-17.0) g/dL Hct (39.6-50.0) % MCHC (32.0-37.0) g/dL BUN (9.0-27.0) mg/dL BUN/Creatinine Ratio (12.00-20.00) Ratio Glucose (70-110) mg/dL POC Glucose (mg/dL) 125 H (70-110) mg/dL Calcium (8.7-10.3) mg/dL Total Protein (6.2-8.2) g/dL Albumin (3.8-4.9) g/dL Microbiology - Last 24 Hours (Table) 01/15/25 14:04 Blood Culture - Preliminary Blood Assessment and Plan Assessment: 64 yo male w/ hinchey I diverticulitis small abscess to small to drain by IR continue abx, defer to ID regarding outpatient IV abx continue current diet Time with Patient: Less than 30
--- NOTE | 2025-01-17 14:37 | P.PN ---
Subjective Progress Note Date: 01/17/25 Subjective: Patient seen and examined at bedside. No acute events overnight. Denies any significant abdominal pain. Having bowel movements. Pertinent positives and negatives as discussed above, a complete review of systems was performed and all other systems are negative. Vitals Signs Reviewed. General: Nontoxic, no distress, appears at stated age Derm: Warm, dry Head: Atraumatic, normocephalic, symmetric Eyes: EOMI, no lid lag, anicteric sclera Mouth: No lip lesion, mucus membranes moist Cardiovascular: S1S2 reg, no murmur Lungs: CTA bilateral, no rhonchi, no rales, no accessory muscle use Abdominal: Soft, nontender to palpation, no guarding, no appreciable organomegaly Ext: No gross muscle atrophy, no edema, no contractures Neuro: Chronic left-sided deficits from prior stroke Psych: Alert, oriented, appropriate affect Data Reviewed Today: Pertinent Labs: Hemoglobin 11.8, WBC 6.5, creatinine 0.7, blood sugars range between 108-134, magnesium 1.8 Imaging: No new imaging Assessment and Plan: Acute diverticulitis with intramural abscess Sepsis on arrival, secondary to above Leukocytosis, resolved Lactic acidosis, resolved Cultures negative growth to date Continue IV antibiotics with Zosyn 3.375 g every 8 hours. Discussed with general surgery, diet advanced to low fiber - ID following, consider de-escalating to oral antibiotics Consult placed to interventional radiology for drainage of intramural abscess and to send sample for culture and cytology. Interventional radiologist stating he reviewed films and abscess is too small to drain at this time, recommending continuation of IV antibiotics with repeat CT in 3 to 4 weeks for follow-up to ensure resolution. Symptomatic care and pain management with Tylenol 650 mg every 6 hours as needed for mild pain/fever, [place] 5/325 mg tablets every 4 hours as needed for moderate pain, and morphine 4 mg IVP every 4 hours as needed for severe pain Zofran 4 mg IVP every 8 hours as needed for nausea. Discontinue IV fluids Indeterminate right renal lesion -Recommend outpatient follow-up with renal ultrasound. Groundglass nodule right lower lobe -Recommend outpatient follow-up with follow-up CT chest in 12 months CAD Hypertension Hyperlipidemia History of CVA with speech and left-sided deficits Continue daily medication regimen with lisinopril 10 mg daily, atorvastatin 40 mg nightly, and metoprolol 75 mg twice daily. Rca-[id number]-[id number] diabetes mellitus -Hold metformin and glimepiride and patient placed on glycemic protocol with Humalog sliding scale. Hemoglobin A1c 6.6%. Obstructive sleep apnea, CPAP dependent nightly - Order placed for CPAP nightly and while napping. DVT ppx: Lovenox Code status: Full code Anticipated discharge place: Home Anticipated discharge time: Likely tomorrow Objective - Vital Signs Vital signs: Vital Signs Temp 97.6 F 01/17/25 07:39 Pulse 80 01/17/25 09:24 Resp 16 01/17/25 07:39 BP 152/89 01/17/25 07:39 Pulse Ox 94 L 01/17/25 07:39 FiO2 Intake & Output 01/16/25 01/17/25 01/17/25 18:59 06:59 18:59 Output Total 500 1275 Balance -500 -1275 Output: Urine 500 1275 Other: Voiding Method Toilet # Voids 4 1 # Bowel Movements 1 - Labs CBC & Chem 7: 01/17/25 04:47 01/17/25 04:47 Labs: Abnormal Lab Results - Last 24 Hours (Table) 01/17/25 01/17/25 01/17/25 Range/Units 04:47 04:47 06:07 RBC 4.13 L (4.40-5.60) X 10*6/uL Hgb 11.8 L (13.0-17.0) g/dL Hct 37.8 L (39.6-50.0) % MCHC 31.2 L (32.0-37.0) g/dL BUN 5.5 L (9.0-27.0) mg/dL BUN/Creatinine Ratio 7.86 L (12.00-20.00) Ratio Glucose 136 H (70-110) mg/dL POC Glucose (mg/dL) 134 H (70-110) mg/dL Calcium 7.9 L (8.7-10.3) mg/dL Total Protein 5.2 L (6.2-8.2) g/dL Albumin 3.4 L (3.8-4.9) g/dL 01/17/25 Range/Units 11:39 RBC (4.40-5.60) X 10*6/uL Hgb (13.0-17.0) g/dL Hct (39.6-50.0) % MCHC (32.0-37.0) g/dL BUN (9.0-27.0) mg/dL BUN/Creatinine Ratio (12.00-20.00) Ratio Glucose (70-110) mg/dL POC Glucose (mg/dL) 125 H (70-110) mg/dL Calcium (8.7-10.3) mg/dL Total Protein (6.2-8.2) g/dL Albumin (3.8-4.9) g/dL Microbiology - Last 24 Hours (Table) 01/15/25 14:04 Blood Culture - Preliminary Blood
[2025-01-17 16:51] LABS: Glucose,Whole Blood 122 mg/dL (70-110)
[2025-01-17] MEDS: MELATONIN 5 MG TABLET PO SCH (21:00)
[2025-01-18 00:15] LABS: Glucose,Whole Blood 133 mg/dL (70-110)
[2025-01-18 06:17] LABS: Glucose,Whole Blood 130 mg/dL (70-110)
[2025-01-18 07:30] VITALS: BP 160/85; PULSE 69; RESP 18; TEMP 97.6
--- NOTE | 2025-01-18 08:40 | P.PN ---
Subjective Progress Note Date: 01/17/25 Principal diagnosis: Reason for follow-up with diverticulitis with intramural abscess Patient is a 64-year-old male with a past medical history significant for CVA/TIA, Diabetes Mellitus, Hyperlipidemia, Hypertension, Musculoskeletal Disorder, Sleep Apnea/CPAP/BIPAP presenting to the hospital for evaluation of weakness, patient also have a fever with CT abdominal pelvis evidence of diverticulitis with intramural abscess. On today's evaluation that is 01/17/2025,the patient remains to be afebrile, patient is on room air not requiring supplemental oxygen and mentioned breathing comfortably with no chest pain or cough.Patient denies having any nausea or vomiting, mention improvement abdominal pain. Patient white count 6.85, creatinine 0.7, blood Cultures are pending Objective - Vital Signs Vital signs: Vital Signs Temp 97.6 F 01/17/25 07:39 Pulse 80 01/17/25 09:24 Resp 16 01/17/25 07:39 BP 152/89 01/17/25 07:39 Pulse Ox 94 L 01/17/25 07:39 FiO2 Intake & Output 01/16/25 01/17/25 01/17/25 18:59 06:59 18:59 Output Total 500 1275 Balance -500 -1275 Output: Urine 500 1275 Other: Voiding Method Toilet # Voids 4 1 # Bowel Movements 1 - Exam GENERAL DESCRIPTION: An elderly male up in wheelchair in no distress RESPIRATORY SYSTEM: Unlabored breathing , decreased breath sounds at bases HEART: S1 S2 regular rate and rhythm , ABDOMEN: Soft , no tenderness EXTREMITIES: No edema feet - Labs CBC & Chem 7: 01/17/25 04:47 01/17/25 04:47 Labs: Abnormal Lab Results - Last 24 Hours (Table) 01/17/25 01/17/25 01/17/25 Range/Units 04:47 04:47 06:07 RBC 4.13 L (4.40-5.60) X 10*6/uL Hgb 11.8 L (13.0-17.0) g/dL Hct 37.8 L (39.6-50.0) % MCHC 31.2 L (32.0-37.0) g/dL BUN 5.5 L (9.0-27.0) mg/dL BUN/Creatinine Ratio 7.86 L (12.00-20.00) Ratio Glucose 136 H (70-110) mg/dL POC Glucose (mg/dL) 134 H (70-110) mg/dL Calcium 7.9 L (8.7-10.3) mg/dL Total Protein 5.2 L (6.2-8.2) g/dL Albumin 3.4 L (3.8-4.9) g/dL 01/17/25 Range/Units 11:39 RBC (4.40-5.60) X 10*6/uL Hgb (13.0-17.0) g/dL Hct (39.6-50.0) % MCHC (32.0-37.0) g/dL BUN (9.0-27.0) mg/dL BUN/Creatinine Ratio (12.00-20.00) Ratio Glucose (70-110) mg/dL POC Glucose (mg/dL) 125 H (70-110) mg/dL Calcium (8.7-10.3) mg/dL Total Protein (6.2-8.2) g/dL Albumin (3.8-4.9) g/dL Microbiology - Last 24 Hours (Table) 01/15/25 14:04 Blood Culture - Preliminary Blood Assessment and Plan (1) Diverticulitis Current Visit: No Status: Acute Code(s): K57.92 - DVTRCLI OF INTEST, PART UN SP, W/O PERF OR ABSCESS W/O BLEED SNOMED Code(s): 568539949 (2) Sepsis Current Visit: No Status: Acute Code(s): A41.9 - SEPSIS, UNSPECIFIED ORGANISM SNOMED Code(s): 34879422 Plan: 1patient presented hospital with sepsis in this patient who did have fever tachycardia elevated white count medically for SIRS/sepsis source is acute diverticulitis with intramural abscess and likely need to cover for the entire gram-negative both aerobes and anaerobes 2-patient is afebrile patient white count is normalized patient will be treated with Zosyn 3.375 from every 8 hour while inpatient and hopefully transition to oral antibiotic on discharge Dictation was produced using [employer] dictation software. please excuse any gramm atical, word or spelling errors. Time with Patient: Less than 30
[2025-01-18 11:11] LABS: Basophils # (A) 0.04 X 10*3/uL (0.00-0.10); Basophils % (A) 0.7 %; Eosinophils # (A) 0.14 X 10*3/uL (0.04-0.35); Eosinophils % (A) 2.3 %; HCT 40.4 % (39.6-50.0); HGB 12.8 g/dL (13.0-17.0); Immature Grans, Automated 0.30 %; Lymphocytes # (A) 1.20 X 10*3/uL (0.90-5.00); Lymphocytes % (A) 19.5 %; MCH 28.5 pg (27.0-32.0); MCHC 31.7 g/dL (32.0-37.0); MCV 90.0 FL (80.0-97.0); Monocytes # (A) 0.48 X 10*3/uL (0.20-1.00); Monocytes % (A) 7.8 %; NRBC Per 100 WBC 0 X 10*3/uL (0.00-0.01); Neutrophils # (A) 4.26 X 10*3/uL (1.80-7.70); Neutrophils % (A) 69.4 %; Platelet Count 196 X 10*3/uL (140-440); RBC 4.49 X 10*6/uL (4.40-5.60); RDW 13.9 % (11.5-14.5); WBC 6.14 X 10*3/uL (4.50-10.00)
[2025-01-18 11:23] LABS: ALT 22 U/L (10-49); AST 20 U/L (14-35); Albumin 3.8 g/dL (3.8-4.9); Albumin/Globulin Ratio 1.65 Ratio (1.60-3.17); Alkaline Phosphatase 73 U/L (41-126); Anion Gap 11.60 mmol/L (4.00-12.00); BUN/Creat Ratio 9.86 Ratio (12.00-20.00); Blood Urea Nitrogen 6.9 mg/dL (9.0-27.0); Calcium 8.5 mg/dL (8.7-10.3); Carbon Dioxide 23.4 mmol/L (21.6-31.8); Chloride 106 mmol/L (96-109); Globulin 2.3 g/dL (1.6-3.3); Glucose 226 mg/dL (70-110); Potassium 3.9 mmol/L (3.5-5.5); Sodium 141 mmol/L (135-145); Total Protein 6.1 g/dL (6.2-8.2)
--- NOTE | 2025-01-18 11:59 | P.DS ---
Providers Date of admission: 01/15/25 13:55 Attending physician: Ginette Morejon MD Consults: 01/15/25 13:53 Consult Physician Routine Consulting Provider: Terell Chand Consult Reason/Comments: diverticulitis Do you want consulting provider notified?: Yes 01/15/25 17:18 Consult Physician Routine Consulting Provider: Myron Adkins Consult Reason/Comments: diverticulitis w/ abscess Do you want consulting provider notified?: Yes [facility] Course: Discharge Diagnosis: # Sepsis secondary to acute diverticulitis with intramural abscess # Indeterminate right renal lesion # Groundglass nodule right lower lobe # Mxi-sepzlgr-irhxtzvmo diabetes mellitus Chronic: # CAD # Hypertension # Hyperlipidemia # HUMAIRA # History of CVA Hospital Course: Patient is a 64-year-old male with past medical history of CAD, hypertension, hyperlipidemia, previous CVA with speech and left-sided deficits, [id number]-vmqaumxdv diabetes mellitus, diverticulosis with recurrent episodes of diverticulitis, and HUMAIRA on CPAP who presented to the emergency department with worsening diarrhea, increased weakness, fatigue, and confusion. Patient reported decreased oral intake, denying any fevers at home. Patient denied having headaches, lightheadedness, dizziness, chest pain, palpitations, shortness of breath, cough, congestion, abdominal pain. On physical exam in the ED, patient had left lower quadrant abdominal tenderness to palpation. Patient was vitals in the emergency see department showed hypertension, tachycardia, and elevated temperature of 101.[address] abdomen pelvis showed marked bowel wall thickening in the distal left sigmoid colon with small suspected 2 cm intramural abscess within anterior to wall of the bowel. An indeterminate right renal lesion and groundglass nodule in right lower lobe was found on the CT also. Patient was started on IV Zosyn. During admission, surgery was consulted and. No surgical intervention was recommended at this time. Interventional radiology was consulted. Abscess was deemed too small to drain. Recommended to follow-up outpatient with imaging after course of antibiotics. Patient was also seen by ID. Patient's clinical picture continue to improve with IV antibiotics for 3 days with the reduction in left lower quadrant abdominal pain and increase in general strength. Patient was discharged in stable condition. Plan to continue oral antibiotics for 7 more days, completing a 10-day course of antibiotics. Due to imaging findings during inpatient stay, recommend outpatient follow-up with a renal ultrasound for right renal lesion and in 12 months and outpatient follow-up CT for groundglass nodule right lower lobe. Patient seen and examined at bedside. Vital signs reviewed and stable. Patient is satting well on room air. General: Nontoxic, no distress, appears at stated age Derm: Warm, dry Head: Atraumatic, normocephalic, symmetric Eyes: EOMI, no lid lag, anicteric sclera Mouth: No lip lesion, mucus membranes moist Cardiovascular: S1S2 reg, no murmur Lungs: CTA bilateral, no rhonchi, no rales, no accessory muscle use Abdominal: Soft, left lower quadrant tenderness to palpation, no guarding Ext: No gross muscle atrophy, no edema, no contractures Neuro: CN II-XI grossly intact, LUE/LLE grossly reduced strength with increases in tone Psych: Alert, oriented, appropriate affect Sherri Gustafson MD PGY-1 A total of 36 minutes of time were spent preparing this complex discharge summary. Patient was discharged on 01/18/2025. I have seen and evaluated the patient today. Discussed with the resident and agree with the residents finding and plan as documented in the resident's note. Changes highlighted in blue font. Patient Condition at Discharge: Fair Plan - Discharge Summary Discharge Rx Participant: No New Discharge Prescriptions: New Amoxic-Pot Clav 875-125Mg [Augmentin 875-125] 1 tab PO Q12HR 7 Days #14 tab Continue metFORMIN HCL ER [Glucophage XR] 1,000 mg PO HS Umeclidinium Brm/Vilanterol Tr [Anoro Ellipta 62.5-25 Mcg INH] 1 puff INHALATION RT-DAILY Atorvastatin [Lipitor] 40 mg PO HS Metoprolol Tartrate [Lopressor] 75 mg PO BID Citalopram Hydrobromide [Citalopram HBr] 20 mg PO HS lisinopriL [Zestril] 10 mg PO DAILY Multivit-Min/FA/Lycopen/Lutein [Centrum Silver Tablet] 1 tab PO HS Glimepiride [Amaryl] 2 mg PO DAILY Discharge Medication List Atorvastatin [Lipitor] 40 mg PO HS 01/13/21 [History] Metoprolol Tartrate [Lopressor] 75 mg PO BID 01/13/21 [History] Umeclidinium Brm/Vilanterol Tr [Anoro Ellipta 62.5-25 Mcg INH] 1 puff INHALATION RT-DAILY 01/13/21 [History] metFORMIN HCL ER [Glucophage XR] 1,000 mg PO HS 01/13/21 [History] Citalopram Hydrobromide [Citalopram HBr] 20 mg PO HS 03/09/22 [History] Multivit-Min/FA/Lycopen/Lutein [Centrum Silver Tablet] 1 tab PO HS 06/11/23 [History] lisinopriL [Zestril] 10 mg PO DAILY 06/11/23 [History] Glimepiride [Amaryl] 2 mg PO DAILY 01/15/25 [History] Amoxic-Pot Clav 875-125Mg [Augmentin 875-125] 1 tab PO Q12HR 7 Days #14 tab 01/18/25 [Rx] Follow up Appointment(s)/Referral(s): Vega Luque MD [Primary Care Provider] - 1-2 days (office will call with follow up appointment ) Terell Chand DO [Doctor of Osteopathic Medicine] - 01/29/25 9:45 am Patient Instructions/Handouts: Diverticulitis (DC), Low Fiber Diet (DC) Activity/Diet/Wound Care/Special Instructions: Please see your PCP and general surgery. You will likely need a colonoscopy in few weeks. Discharge Disposition: HOME SELF-CARE
== END 2025-01-18 11:50 | disposition home or self-care (01) | DRG 871 ==
LOC: EC 10:13 → 4SSUR 13:55
PROVIDERS: ADMIT Student in an Organized Health Care Education/Training Program; ATTEND Student in an Organized Health Care Education/Training Program
DX: A41.9 Sepsis, unspecified organism (principal); K65.1 Peritoneal abscess; K57.20 Diverticulitis of large intestine with perforation and abscess without bleeding; Z11.52 Encounter for screening for COVID-19; E11.9 Type 2 diabetes mellitus without complications; I10 Essential (primary) hypertension; N28.89 Other specified disorders of kidney and ureter; R91.1 Solitary pulmonary nodule; E78.5 Hyperlipidemia, unspecified; G47.33 Obstructive sleep apnea (adult) (pediatric); I25.10 Atherosclerotic heart disease of native coronary artery without angina pectoris; Z79.82 Long term (current) use of aspirin; Z79.84 Long term (current) use of oral hypoglycemic drugs; Z79.899 Other long term (current) drug therapy; Z82.49 Family history of ischemic heart disease and other diseases of the circulatory system; Z87.442 Personal history of urinary calculi; Z87.891 Personal history of nicotine dependence; Z96.643 Presence of artificial hip joint, bilateral; Z98.2 Presence of cerebrospinal fluid drainage device
CPT/HCPCS: 36415; 71260; 74177; 80053; 81001; 83036; 83605; 83735; 84484; 85025; 85027; 85610; 85730; 87040; 87636; 93005; 94640; 96361; 96365; 96366; 99285